=== PATIENT | female | born 1960 | race Caucasian/White ===

== ENCOUNTER → 2018-10-12 | Outpatient (CLI) | payer OTHER ==
--- NOTE | 2018-10-12 16:17 | MR ---
EXAMINATION TYPE: MR lumbar spine wo con DATE OF EXAM: 10/12/2018 COMPARISON: Lumbosacral radiographs dated 01/31/2016 HISTORY: Back pain TECHNIQUE: Multiplanar, multisequence images of the lumbar spine were acquired. FINDINGS: The lumbar spine vertebral body heights and alignment are maintained. Conus medullaris is u nremarkable terminating at T12-L1: Bone marrow signal is within normal limits. There is multilevel di sc desiccation present. L1-L2: There is a small broad-based disc bulge at there is flattening of the usual disc concavity pos teriorly without spinal canal stenosis or neural foraminal narrowing. L2-L3: There is a small broad-based disc bulge at there is flattening of the usual disc concavity pos teriorly without spinal canal stenosis or neural foraminal narrowing. L3-L4: There is a small broad-based disc bulge at there is flattening of the usual disc concavity pos teriorly without spinal canal stenosis or neural foraminal narrowing. Additionally there is mild face t arthropathy. L4-L5: There is a broad-based disc bulge that is right eccentric resulting in moderate right neural f oraminal narrowing and mild left neural foraminal narrowing. No spinal canal stenosis L5-S1: There is a very small central disc herniation superimposed upon a broad-based disc bulge with mild facet arthropathy creating minimal bilateral neural foraminal narrowing. No spinal canal stenosi s. IMPRESSION: 1. Small central disc herniation at L5-S1 examination with degenerative disc disease creating minimal bilateral neural foraminal narrowing. 2. Right eccentric broad-based disc bulge at L4-L5 creating moderate right neural foraminal narrowing and mild left neural foraminal narrowing. 3. Mild degenerative disc disease throughout the lumbar spine.
== END | disposition home or self-care (01) ==
LOC: RADMRIMAIN 13:19
PROVIDERS: ATTEND Family Medicine
DX: M99.73 Connective tissue and disc stenosis of intervertebral foramina of lumbar region (principal); M51.17 Intervertebral disc disorders with radiculopathy, lumbosacral region
CPT/HCPCS: 72148

== ENCOUNTER 2019-04-04 14:14 | Emergency (ER) | payer OTHER ==
[2019-04-04 14:21] VITALS: RESP 18; TEMP 98.6
[2019-04-04 15:00] LABS: Basophils % (A) 0 %; Eosinophils # (A) 0.2 k/uL (0-0.7); Eosinophils % (A) 2 %; HCT 43.8 % (34.0-46.0); HGB 14.3 gm/dL (11.4-16.0); Lymphocytes # (A) 2.8 k/uL (1.0-4.8); Lymphocytes % (A) 28 %; MCH 31.3 pg (25.0-35.0); MCHC 32.7 g/dL (31.0-37.0); MCV 95.7 fL (80.0-100.0); Monocytes # (A) 0.3 k/uL (0-1.0); Monocytes % (A) 3 %; Neutrophils # (A) 6.4 k/uL (1.3-7.7); Neutrophils % (A) 65 %; Platelet Count 320 k/uL (150-450); RBC 4.58 m/uL (3.80-5.40); RDW 13.3 % (11.5-15.5); WBC 9.8 k/uL (3.8-10.6)
[2019-04-04] MEDS ORDERED: ONDANSETRON 4 MG/2 ML VIAL IVP STA (15:03)
[2019-04-04] MEDS ORDERED: MORPHINE SULFATE 4 MG/ML SYRINGE IVP STA (15:04)
[2019-04-04 15:15] LABS: ALT 26 U/L (9-52); AST 21 U/L (14-36); Albumin 4.9 g/dL (3.5-5.0); Alkaline Phosphatase 67 U/L (38-126); Amylase 62 U/L (30-110); Anion Gap 8 mmol/L; Blood Urea Nitrogen 10 mg/dL (7-17); Calcium 9.7 mg/dL (8.4-10.2); Carbon Dioxide 28 mmol/L (22-30); Chloride 104 mmol/L (98-107); Glucose 145 mg/dL (74-99); Lipase 80 U/L (23-300); Potassium 3.3 mmol/L (3.5-5.1); Sodium 140 mmol/L (137-145); Total Bilirubin 0.4 mg/dL (0.2-1.3); Total Protein 7.6 g/dL (6.3-8.2)
[2019-04-04 15:16] LABS: Appearance,Urine Clear (Clear); Bilirubin,Urine Negative (Negative); Blood,Urine Negative (Negative); Color,Urine Yellow; Glucose,Urine (UA) Negative (Negative); Ketones,Urine Negative (Negative); Leukocyte Esterase,Urine Negative (Negative); Nitrite,Urine Negative (Negative); PH, Urine 7.5 (5.0-8.0); Protein,Urine Negative (Negative); Specific Gravity,Urine 1.012 (1.001-1.035); Urobilinogen,Urine <2.0 mg/dL (<2.0)
--- NOTE | 2019-04-04 15:17 | ED ---
Abdominal Pain HPI - General Chief Complaint: Abdominal Pain Stated Complaint: diverticulitis Time Seen by Provider: 04/04/19 14:43 Source: patient Mode of arrival: wheelchair Limitations: no limitations - History of Present Illness Initial Comments: 59-year-old female presenting today for chief complaint of abdominal pain. Patient has history of multiple abdominal surgery including resections, she has history of Crohn's disease she states she has not had a flare in 7 years. Patient states that she has history of diverticulitis. She states that she was prescribed ciprofloxacin and Flagyl yesterday by her primary care provider. With outpatient CT scheduled for today. Patient states she took her initial doses today. She states she is able to keep down the Flagyl however had severe nausea after taking the ciprofloxacin. Patient states her pain increased that was of the lower abdomen bilaterally mostly right-sided however radiating towards the right side of the back. Patient states it is crampy in nature. Patient describes as a moderate to severe pain. Patient denies vomiting she denies diarrhea she states her bowel movement this morning was normal. Patient has fever or chills night sweats chest chest pain shortness of breath or shortness breath on exertion. Remaining review of systems negative upon arrival patient appears uncomfortable but well and nontoxic. - Related Data Home Medications Medication Instructions Recorded Confirmed Ciprofloxacin HCl [Cipro] 500 mg PO DAILY 04/04/19 04/04/19 Tatyana 500 mg PO DAILY 04/04/19 04/04/19 Turmeric Root Extract [Turmeric] 500 mg PO DAILY 04/04/19 04/04/19 metroNIDAZOLE [Flagyl] 500 mg PO TID 04/04/19 04/04/19 Allergies Allergy/AdvReac Type Severity Reaction Status Date / Time Sulfa (Sulfonamide Allergy Rash/Hives Verified 04/04/19 14:44 Antibiotics) sumatriptan [From Imitrex] Allergy Chest Pain Verified 04/04/19 14:44 sumatriptan succinate Allergy Chest Pain Verified 04/04/19 14:44 [From Imitrex] Review of Systems ROS Statement: Those systems with pertinent positive or pertinent negative responses have been documented in the HPI. ROS Other: All systems not noted in ROS Statement are negative. Past Medical History Additional Past Medical History / Comment(s): CROHNS, IBS, BULGING DISCS, rectal prolapse, vaginal prolapse, shingles History of Any Multi-Drug Resistant Organisms: MRSA Date of last positivie culture/infection: 1997 MDRO Source:: Head Past Surgical History: Appendectomy, Bowel Resection, Section, Cholecystectomy, Hysterectomy Past Anesthesia/Blood Transfusion Reactions: No Reported Reaction Past Psychological History: Anxiety, Bipolar, Depression Smoking Status: Former smoker Past Alcohol Use History: None Reported Past Drug Use History: None Reported - Past Family History Mother Family Medical History: Hypertension General Exam - General Exam Comments Initial Comments: General: The patient is awake and alert, in no distress. Eye: +3 mm pupils are equal, round and reactive to light, extra-ocular movements are intact. No nystagmus. There is normal conjunctiva bilaterally. No signs of icterus. Ears, nose, mouth and throat: There are moist mucous membranes and no oral lesions. Neck: The neck is supple, there is no tenderness or JVD. Cardiovascular: There is a regular rate and rhythm. No murmur, rub or gallop is appreciated. Respiratory: Lungs are clear to auscultation, respirations are non-labored, breath sounds are equal. No wheezes, stridor, rales, or rhonchi. Gastrointestinal: Soft, non-distended, lower abdomen mildly tender diffusely R> L, without masses or organomegaly noted. There is no rebound or guarding present. No CVA tenderness. Bowel sounds are unremarkable. Musculoskeletal: Normal ROM, no tenderness. Strength 5/5. Sensation intact. Pulses equal bilaterally 2+. Neurological: A&O x 3. CN II-XII intact, There are no obvious motor or sensory deficits. Coordination appears grossly intact. Speech is normal. Skin: Skin is warm and dry and no rashes or lesions are noted. Psychiatric: Cooperative, appropriate mood & affect, normal judgment. Limitations: no limitations Course Vital Signs 04/04/19 04/04/19 04/04/19 14:15 16:10 17:35 Temperature 98.6 F 98.6 F Pulse Rate 110 H 71 79 Respiratory 18 18 18 Rate Blood Pressure 173/91 162/98 169/100 O2 Sat by Pulse 99 97 98 Oximetry Medical Decision Making - Medical Decision Making 59-year-old female presenting for right lower abdominal pain. Examination does not reveal rigidity guarding or signs of peritoneal irritation. Imaging studies reveal a right-sided colitis there is no complicating processing at this time. Differential diagnosis includes Crohn's flare first infectious etiology. Patient is currently on Cipro and Flagyl. As prescribed by her primary care provider. Patient is afebrileand if can leukocytosis. Patient provided Solu- Medrol IV. Patient states oral prednisone does not work for her flareups. Patient was offered admission for pain control. Patient states she would like to go home. Patient is provided IV analgesics for pain in the emergency de partment. Patient has right home. Patient appears well. At this time I feel patient is stable for discharge with outpatient GI follow-up and primary care follow-up tomorrow as scheduled. Patient is agreeable care plan as well as return parameters which included immediate return for worsening pain. I discussed case with him far Dr. Bustillos who is agreeable plan of care and discharge today. - Lab Data Result diagrams: 04/04/19 14:46 04/04/19 14:46 Lab Results 04/04/19 04/04/19 04/04/19 Range/Units 14:46 14:46 15:00 WBC 9.8 (3.8-10.6) k/uL RBC 4.58 (3.80-5.40) m/uL Hgb 14.3 (11.4-16.0) gm/dL Hct 43.8 (34.0-46.0) % MCV 95.7 (80.0-100.0) fL MCH 31.3 (25.0-35.0) pg MCHC 32.7 (31.0-37.0) g/dL RDW 13.3 (11.5-15.5) % Plt Count 320 (150-450) k/uL Neutrophils % 65 % Lymphocytes % 28 % Monocytes % 3 % Eosinophils % 2 % Basophils % 0 % Neutrophils # 6.4 (1.3-7.7) k/uL Lymphocytes # 2.8 (1.0-4.8) k/uL Monocytes # 0.3 (0-1.0) k/uL Eosinophils # 0.2 (0-0.7) k/uL Basophils # 0.0 (0-0.2) k/uL Sodium 140 (137-145) mmol/L Potassium 3.3 L (3.5-5.1) mmol/L Chloride 104 (98-107) mmol/L Carbon Dioxide 28 (22-30) mmol/L Anion Gap 8 mmol/L BUN 10 (7-17) mg/dL Creatinine 0.59 (0.52-1.04) mg/dL Est GFR (CKD-EPI)AfAm >90 (>60 ml/min/1.73 sqM) Est GFR (CKD-EPI)NonAf >90 (>60 ml/min/1.73 sqM) Glucose 145 H (74-99) mg/dL Calcium 9.7 (8.4-10.2) mg/dL Total Bilirubin 0.4 (0.2-1.3) mg/dL AST 21 (14-36) U/L ALT 26 (9-52) U/L Alkaline Phosphatase 67 (38-126) U/L Total Protein 7.6 (6.3-8.2) g/dL Albumin 4.9 (3.5-5.0) g/dL Amylase 62 (30-110) U/L Lipase 80 (23-300) U/L Urine Color Yellow Urine Appearance Clear (Clear) Urine pH 7.5 (5.0-8.0) Ur Specific [place] 1.012 (1.001-1.035) Urine Protein Negative (Negative) Urine Glucose (UA) Negative (Negative) Urine Ketones Negative (Negative) Urine Blood Negative (Negative) Urine Nitrite Negative (Negative) Urine Bilirubin Negative (Negative) Urine Urobilinogen <2.0 (<2.0) mg/dL Ur Leukocyte Esterase Negative (Negative) Disposition Clinical Impression: Colitis Disposition: HOME SELF-CARE Condition: Good Instructions (If sedation given, give patient instructions): Colitis (ED) Additional Instructions: Please continue outpatient medication as discussed. Please follow-up with family doctor tomorrow as scheduled, please follow-up with GI Dr Finch as discussed. Please return to emergency room if the symptoms increase or worsen or for any other concerns. Is patient prescribed a controlled substance at d/c from ED?: No Referrals: Christina Jones DO [Primary Care Provider] - 1-2 days Arvind Ortiz MD [STAFF PHYSICIAN] - 1-2 days Time of Disposition: 16:23
--- NOTE | 2019-04-04 15:53 | CT ---
EXAMINATION TYPE: CT abdomen pelvis w con DATE OF EXAM: 04/04/2019 HISTORY: Upper Abdominal pain. CT DLP: 550.1mGycm Automated Exposure Control for Dose Reduction was Utilized. CONTRAST: CT scan of the abdomen and pelvis is performed without oral but with IV Contrast, patient injected wi th 100 mL of Isovue 300. COMPARISON: CT abdomen pelvis March 26, 2014 FINDINGS: LUNG BASES: There is new small fat-containing hernia Bochdalek type posterior right lung axial image 21. LIVER/GB: Cholecystectomy clips are redemonstrated. PANCREAS: No significant abnormality is seen. SPLEEN: No significant abnormality is seen. ADRENALS: Slight nodularity left adrenal gland axial image 24 is present. KIDNEYS: No significant abnormality is seen. BOWEL: No surgical sutures sigmoid colon are present axial image 66 and 64. No suspicious small or l arge bowel dilatation. Mild to moderate wall thickening right colon is identified. UTERUS/ADNEXA: Uterus is surgically absent or markedly atrophic. LYMPH NODES: No greater than 1cm abdominal or pelvic lymph nodes are appreciated. OSSEOUS STRUCTURES: Straightening of spine is seen on lateral view. OTHER: Mild to moderate atherosclerotic change of aorta extends into branch vessels. Surgical clips u pper left pelvis axial image 51 are redemonstrated IMPRESSION: Suspect new mild right-sided colitis. Correlate clinically for infectious or inflammatory etiology.
[2019-04-04] MEDS ORDERED: POTASSIUM CHLORIDE ER 20 MEQ TAB.ER PO STA (16:00)
[2019-04-04] MEDS ORDERED: methylPREDNISolone SOD SUCCI 125 MG/2 ML VIAL IV STA (16:20)
[2019-04-04] MEDS ORDERED: MORPHINE SULFATE 2 MG/ML SYRINGE IVP STA (16:21)
[2019-04-04 17:38] VITALS: BP 169/100; PULSE 79
== END 2019-04-04 17:35 | disposition home or self-care (01) ==
LOC: EC 14:14
DX: K52.9 Noninfective gastroenteritis and colitis, unspecified (principal); Z87.19 Personal history of other diseases of the digestive system; Z86.14 Personal history of Methicillin resistant Staphylococcus aureus infection; Z90.49 Acquired absence of other specified parts of digestive tract; Z90.710 Acquired absence of both cervix and uterus; Z98.890 Other specified postprocedural states; Z87.891 Personal history of nicotine dependence; Z79.899 Other long term (current) drug therapy; Z88.2 Allergy status to sulfonamides; Z88.8 Allergy status to other drugs, medicaments and biological substances
CPT/HCPCS: 36415; 80053; 82150; 83690; 85025; 81003; 74177; 99284; 96374; 96375 ×2; 96376; J2270 ×2; J2930; J2405; Q9967

== ENCOUNTER → 2019-06-24 | Outpatient (CLI) | payer OTHER | END | disposition home or self-care (01) | LOC: LABWHC1 15:42 | PROVIDERS: ATTEND Family Medicine | DX: C20 Malignant neoplasm of rectum (principal); R59.0 Localized enlarged lymph nodes | CPT/HCPCS: 36415; 82378; 87040 ==

== ENCOUNTER 2019-06-26 12:42 | Emergency (ER) | payer OTHER ==
[2019-06-26] MEDS ORDERED: SODIUM CHLORIDE 0.9% 1,000 ML IV STA ×2 (12:50→13:05)
[2019-06-26] MEDS ORDERED: HYDROmorphone 0.5 MG/0.5 ML SYRINGE IVP STA (13:05)
--- NOTE | 2019-06-26 13:09 | ED ---
Abdominal Pain HPI - General Chief Complaint: Abdominal Pain Stated Complaint: Abd pain Time Seen by Provider: 06/26/19 12:47 Source: patient, RN notes reviewed Mode of arrival: wheelchair Limitations: no limitations - History of Present Illness Initial Comments: This is a 59-year-old female with a history of rectal prolapse with bowel resection a history of anal cancer history of ulcerative colitis Crohn's disease as well as diverticulosis and diverticulitis who was sent in from her doctor's office today because of persistent abdominal pain especially left lower quadrant this started 4 days ago. Patient was seen in the doctor's office 2 days ago with some outpatient evaluation started but the pain is getting worse and is persistent. She states is 9/10 severity dull unrelenting pain. She's had decreased oral intake secondary to this. Fevers chills nausea vomiting or sweats. Concern for bowel obstruction secondary to a outpatient x-rays. MD Complaint: abdominal pain - Related Data Previous Rx's Medication Instructions Recorded Dicyclomine [Bentyl] 10 mg PO TID #12 capsule 06/26/19 Ketorolac [Toradol] 10 mg PO Q6HR #20 tab 06/26/19 Allergies Allergy/AdvReac Type Severity Reaction Status Date / Time Sulfa (Sulfonamide Allergy Rash/Hives Verified 06/26/19 13:09 Antibiotics) sumatriptan [From Imitrex] Allergy Chest Pain Verified 06/26/19 13:09 sumatriptan succinate Allergy Chest Pain Verified 06/26/19 13:09 [From Imitrex] Review of Systems ROS Statement: Those systems with pertinent positive or pertinent negative responses have been documented in the HPI. ROS Other: All systems not noted in ROS Statement are negative. Past Medical History Past Medical History: Cancer Additional Past Medical History / Comment(s): CROHNS, IBS, BULGING DISCS, rectal prolapse, vaginal prolapse, shingles, diverticulitis, ulcerative colitis History of Any Multi-Drug Resistant Organisms: MRSA Date of last positivie culture/infection: 1997 MDRO Source:: Head Past Surgical History: Appendectomy, Bowel Resection, Section, Cholecystectomy, Hysterectomy Past Anesthesia/Blood Transfusion Reactions: No Reported Reaction Past Psychological History: Anxiety, Bipolar, Depression Smoking Status: Former smoker Past Alcohol Use History: None Reported Past Drug Use History: None Reported - Past Family History Mother Family Medical History: Hypertension General Exam - General Exam Comments Initial Comments: This is a well-developed asthenic appearing female who is awake alert oriented 3 Limitations: no limitations General appearance: alert, anxious, in distress Head exam: Present: atraumatic, normocephalic, normal inspection Eye exam: Present: normal appearance, PERRL, EOMI. Absent: scleral icterus, conjunctival injection, periorbital swelling ENT exam: Present: mucous membranes dry Neck exam: Present: normal inspection. Absent: tenderness, meningismus, lymphadenopathy Respiratory exam: Present: normal lung sounds bilaterally. Absent: respiratory distress, wheezes, rales, rhonchi, stridor Cardiovascular Exam: Present: regular rate, normal rhythm, normal heart sounds. Absent: systolic murmur, diastolic murmur, rubs, gallop, clicks GI/Abdominal exam: Present: soft, tenderness, normal bowel sounds. Absent: distended, guarding, rebound, rigid, bruit, pulsatile mass (Tenderness especial ly left lower quadrant.) Extremities exam: Present: normal inspection, full ROM, normal capillary refill. Absent: tenderness, pedal edema, joint swelling, calf tenderness Back exam: Present: normal inspection Neurological exam: Present: alert, oriented X3, CN II-XII intact Psychiatric exam: Present: normal affect, normal mood Skin exam: Present: warm, dry, intact, normal color. Absent: rash Course Vital Signs 06/26/19 12:46 Temperature 97.9 F Pulse Rate 84 Respiratory 16 Rate Blood Pressure 149/104 O2 Sat by Pulse 98 Oximetry Medical Decision Making - Medical Decision Making Age was feeling much improved but 76% better. Imaging shows no evidence of acute findings as well as lab work was essentially within normal limits. I long discussion with her regarding the findings. The presentation is consistent with bowel spasm and adhesions which are likely postsurgical. He does say she had a history of adhesions many years ago and had surgery for that. I also did discuss the case with Dr. Bernard. Patient will be discharged on appropriate med ication with follow-up - Lab Data Result diagrams: 06/26/19 13:16 06/26/19 13:16 Lab Results 06/26/19 06/26/19 06/26/19 Range/Units 13:16 13:16 13:16 WBC 9.7 (3.8-10.6) k/uL RBC 4.80 (3.80-5.40) m/uL Hgb 14.4 (11.4-16.0) gm/dL Hct 45.2 (34.0-46.0) % MCV 94.2 (80.0-100.0) fL MCH 30.1 (25.0-35.0) pg MCHC 31.9 (31.0-37.0) g/dL RDW 13.5 (11.5-15.5) % Plt Count 301 (150-450) k/uL Neutrophils % 57 % Lymphocytes % 35 % Monocytes % 3 % Eosinophils % 2 % Basophils % 1 % Neutrophils # 5.6 (1.3-7.7) k/uL Lymphocytes # 3.4 (1.0-4.8) k/uL Monocytes # 0.3 (0-1.0) k/uL Eosinophils # 0.2 (0-0.7) k/uL Basophils # 0.1 (0-0.2) k/uL PT 9.6 (9.0-12.0) sec INR 0.9 (<1.2) APTT 21.2 L (22.0-30.0) sec Sodium 143 (137-145) mmol/L Potassium 3.9 (3.5-5.1) mmol/L Chloride 107 (98-107) mmol/L Carbon Dioxide 24 (22-30) mmol/L Anion Gap 12 mmol/L BUN 11 (7-17) mg/dL Creatinine 0.58 (0.52-1.04) mg/dL Est GFR (CKD-EPI)AfAm >90 (>60 ml/min/1.73 sqM) Est GFR (CKD-EPI)NonAf >90 (>60 ml/min/1.73 sqM) Glucose 104 H (74-99) mg/dL Plasma Lactic Acid Alex (0.7-2.0) mmol/L Calcium 9.9 (8.4-10.2) mg/dL Magnesium 1.8 (1.6-2.3) mg/dL Total Bilirubin 0.3 (0.2-1.3) mg/dL AST 21 (14-36) U/L ALT 14 (9-52) U/L Alkaline Phosphatase 76 (38-126) U/L Creatine Kinase 55 (30-135) U/L Total Protein 7.9 (6.3-8.2) g/dL Albumin 4.9 (3.5-5.0) g/dL Lipase 261 (23-300) U/L Urine Color Urine Appearance (Clear) Urine pH (5.0-8.0) Ur Specific [place] (1.001-1.035) Urine Protein (Negative) Urine Glucose (UA) (Negative) Urine Ketones (Negative) Urine Blood (Negative) Urine Nitrite (Negative) Urine Bilirubin (Negative) Urine Urobilinogen (<2.0) mg/dL Ur Leukocyte Esterase (Negative) 06/26/19 06/26/19 Range/Units 13:16 13:25 WBC (3.8-10.6) k/uL RBC (3.80-5.40) m/uL Hgb (11.4-16.0) gm/dL Hct (34.0-46.0) % MCV (80.0-100.0) fL MCH (25.0-35.0) pg MCHC (31.0-37.0) g/dL RDW (11.5-15.5) % Plt Count (150-450) k/uL Neutrophils % % Lymphocytes % % Monocytes % % Eosinophils % % Basophils % % Neutrophils # (1.3-7.7) k/uL Lymphocytes # (1.0-4.8) k/uL Monocytes # (0-1.0) k/uL Eosinophils # (0-0.7) k/uL Basophils # (0-0.2) k/uL PT (9.0-12.0) sec INR (<1.2) APTT (22.0-30.0) sec Sodium (137-145) mmol/L Potassium (3.5-5.1) mmol/L Chloride (98-107) mmol/L Carbon Dioxide (22-30) mmol/L Anion Gap mmol/L BUN (7-17) mg/dL Creatinine (0.52-1.04) mg/dL Est GFR (CKD-EPI)AfAm (>60 ml/min/1.73 sqM) Est GFR (CKD-EPI)NonAf (>60 ml/min/1.73 sqM) Glucose (74-99) mg/dL Plasma Lactic Acid Alex 0.9 (0.7-2.0) mmol/L Calcium (8.4-10.2) mg/dL Magnesium (1.6-2.3) mg/dL Total Bilirubin (0.2-1.3) mg/dL AST (14-36) U/L ALT (9-52) U/L Alkaline Phosphatase (38-126) U/L Creatine Kinase (30-135) U/L Total Protein (6.3-8.2) g/dL Albumin (3.5-5.0) g/dL Lipase (23-300) U/L Urine Color Light Yellow Urine Appearance Clear (Clear) Urine pH 6.0 (5.0-8.0) Ur Specific [place] 1.005 (1.001-1.035) Urine Protein Negative (Negative) Urine Glucose (UA) Negative (Negative) Urine Ketones Negative (Negative) Urine Blood Negative (Negative) Urine Nitrite Negative (Negative) Urine Bilirubin Negative (Negative) Urine Urobilinogen <2.0 (<2.0) mg/dL Ur Leukocyte Esterase Negative (Negative) - Radiology Data Radiology results: report reviewed (I did review the imaging and report no acute findings.), image reviewed Disposition Clinical Impression: Abdominal pain, Spastic colon Disposition: HOME SELF-CARE Condition: Good Instructions (If sedation given, give patient instructions): Abdominal Pain (ED), Irritable Bowel Syndrome (ED) Prescriptions: Dicyclomine [Bentyl] 10 mg PO TID #12 capsule Ketorolac [Toradol] 10 mg PO Q6HR #20 tab Is patient prescribed a controlled substance at d/c from ED?: No Referrals: Cynthia Bernard MD [Primary Care Provider] - 1-2 days
[2019-06-26 13:32] LABS: Basophils # (A) 0.1 k/uL (0-0.2); Basophils % (A) 1 %; Eosinophils # (A) 0.2 k/uL (0-0.7); Eosinophils % (A) 2 %; HCT 45.2 % (34.0-46.0); HGB 14.4 gm/dL (11.4-16.0); Lymphocytes # (A) 3.4 k/uL (1.0-4.8); Lymphocytes % (A) 35 %; MCH 30.1 pg (25.0-35.0); MCHC 31.9 g/dL (31.0-37.0); MCV 94.2 fL (80.0-100.0); Monocytes # (A) 0.3 k/uL (0-1.0); Monocytes % (A) 3 %; Neutrophils # (A) 5.6 k/uL (1.3-7.7); Neutrophils % (A) 57 %; Platelet Count 301 k/uL (150-450); RDW 13.5 % (11.5-15.5); WBC 9.7 k/uL (3.8-10.6)
[2019-06-26 13:36] LABS: Appearance,Urine Clear (Clear); Bilirubin,Urine Negative (Negative); Blood,Urine Negative (Negative); Color,Urine Light Yellow; Glucose,Urine (UA) Negative (Negative); Ketones,Urine Negative (Negative); Leukocyte Esterase,Urine Negative (Negative); Nitrite,Urine Negative (Negative); Protein,Urine Negative (Negative); Urobilinogen,Urine <2.0 mg/dL (<2.0)
[2019-06-26 13:43] LABS: ALT 14 U/L (9-52); AST 21 U/L (14-36); African American GFR (CKD) >90 (>60 ml/min/1.73 sqM); Albumin 4.9 g/dL (3.5-5.0); Alkaline Phosphatase 76 U/L (38-126); Anion Gap 12 mmol/L; Blood Urea Nitrogen 11 mg/dL (7-17); Calcium 9.9 mg/dL (8.4-10.2); Carbon Dioxide 24 mmol/L (22-30); Chloride 107 mmol/L (98-107); Creatine Kinase 55 U/L (30-135); Glucose 104 mg/dL (74-99); Magnesium 1.8 mg/dL (1.6-2.3); Non-African American GFR(CKD) >90 (>60 ml/min/1.73 sqM); Potassium 3.9 mmol/L (3.5-5.1); Sodium 143 mmol/L (137-145); Total Bilirubin 0.3 mg/dL (0.2-1.3); Total Protein 7.9 g/dL (6.3-8.2)
[2019-06-26 14:04] LABS: INR 0.9 (<1.2); Prothrombin Time 9.6 sec (9.0-12.0)
[2019-06-26 14:20] LABS: Specific Gravity,Urine 1.005 (1.001-1.035)
[2019-06-26 14:21] LABS: Partial Thromboplastin Time 21.2 sec (22.0-30.0)
--- NOTE | 2019-06-26 14:39 | CT ---
EXAMINATION TYPE: CT abdomen pelvis w con DATE OF EXAM: 06/26/2019 COMPARISON: 04/04/2019 HISTORY: Abdominal pain CT DLP: 528.6 mGycm Automated exposure control for dose reduction was used. CONTRAST: CT scan of the abdomen pelvis is performed with IV Contrast, patient injected with 100 ml mL of Isovu e 300. FINDINGS- LUNG BASES-stable fat-containing Bochdalek hernia posterior right lung. LIVER/GB-postcholecystectomy changes noted. There is increased enhancement near the dome of the liver which may be artifactual. Calcified nodule adjacent to the posterior margin of the liver stable of d oubtful significance.. PANCREAS- No gross abnormality is seen. SPLEEN- No gross abnormality is seen. ADRENALS-stable 1 cm nonspecific nodularity left adrenal gland. KIDNEYS/BLADDER- no hydronephrosis nephrolithiasis or renal mass. BOWEL-bowel gas pattern is nonspecific. Appendix not visualized. No inflammatory changes in the right lower quadrant. Previous surgery near the rectosigmoid junction is suggested. No inflammatory change s surrounding the bowel. LYMPH NODES- No greater than 1cm abdominal or pelvic lymph nodes areappreciated. OSSEOUS STRUCTURES- No significant abnormality is seen. OTHER- no free fluid. IMPRESSION- 1. Nonspecific gas pattern with no evidence of obstruction. There are few fluid-filled bowel loops wh ich could be related to an ileus or enteritis. No inflammatory changes 2. Postcholecystectomy changes with mild intrahepatic biliary dilation likely postsurgical. 3. There is increased enhancement along the dome of the liver posterior laterally which is nonspecifi c. This was not seen with certainty on the prior exam and follow-up MRI recommended for further eval uation
[2019-06-26] MEDS ORDERED: DICYCLOMINE 10 MG CAP PO STA (15:32)
[2019-06-26] MEDS ORDERED: KETOROLAC 30 MG/ML 1 ML VIAL IVP STA (15:32)
[2019-06-26 16:22] VITALS: BP 148/93; PULSE 78; RESP 18; TEMP 98.3
== END 2019-06-26 16:21 | disposition home or self-care (01) ==
LOC: EC 12:42
DX: K58.9 Irritable bowel syndrome, unspecified (principal); R10.32 Left lower quadrant pain; R50.9 Fever, unspecified; Z88.2 Allergy status to sulfonamides; Z88.8 Allergy status to other drugs, medicaments and biological substances; Z87.891 Personal history of nicotine dependence; Z87.19 Personal history of other diseases of the digestive system; Z85.048 Personal history of other malignant neoplasm of rectum, rectosigmoid junction, and anus; Z90.49 Acquired absence of other specified parts of digestive tract; Z98.890 Other specified postprocedural states
CPT/HCPCS: 36415; 80053; 82550; 83605; 83690; 83735; 85025; 85610; 85730; 81003; 87040; 74177; 99284; 96374; 96375; 96361; J1885; J1170; Q9967

== ENCOUNTER 2020-06-17 18:26 | Emergency (ER) | payer OTHER ==
[2020-06-17 18:37] VITALS: TEMP 98.6
[2020-06-17] MEDS ORDERED: ONDANSETRON 4 MG/2 ML VIAL IVP STA (19:31)
[2020-06-17] MEDS ORDERED: HYDROmorphone 0.5 MG/0.5 ML SYRINGE IVP STA ×2 (19:31→22:52)
[2020-06-17] MEDS ORDERED: SODIUM CHLORIDE 0.9% 1,000 ML IV STA (19:31)
--- NOTE | 2020-06-17 20:33 | ED ---
General Adult HPI - General Chief complaint: Abdominal Pain Stated complaint: abd pain Time Seen by Provider: 06/17/20 19:13 Source: patient, RN notes reviewed Mode of arrival: ambulatory Limitations: no limitations - History of Present Illness Initial comments: 60-year-old female with a past medical history of Crohn's, multiple bowel resections, ulcerative colitis, diverticulitis, anal cancer presents to the emergency room for abdominal pain. Patient states this started last night. States it is generalized in her abdomen. States she has nausea vomiting associated with this pain as well. Patient states that she has many abdominal problems and this feels similar to previous problems. Patient states she can no longer stand the pain.Patient has no other complaints at this time including shortness of breath, chest pain, abdominal pain, nausea or vomiting, headache, or visual changes. - Related Data Home Medications Medication Instructions Recorded Confirmed Atorvastatin [Lipitor] 40 mg PO DAILY 06/17/20 06/17/20 Clopidogrel Bisulfate [Plavix] 75 mg PO DAILY 06/17/20 06/17/20 Losartan Potassium 50 mg PO DAILY 06/17/20 06/17/20 OXcarbazepine [Trileptal] 150 mg PO HS 06/17/20 06/17/20 Ondansetron Odt [Zofran Odt] 4 mg PO Q4H PRN 06/17/20 06/17/20 Previous Rx's Medication Instructions Recorded predniSONE 50 mg PO DAILY #5 tablet 06/17/20 Allergies Allergy/AdvReac Type Severity Reaction Status Date / Time Sulfa (Sulfonamide Allergy Rash/Hives Verified 06/17/20 20:45 Antibiotics) sumatriptan [From Imitrex] Allergy Chest Pain Verified 06/17/20 20:45 sumatriptan succinate Allergy Chest Pain Verified 06/17/20 20:45 [From Imitrex] Review of Systems ROS Statement: Those systems with pertinent positive or pertinent negative responses have been documented in the HPI. ROS Other: All systems not noted in ROS Statement are negative. Past Medical History Past Medical History: Cancer, CVA/TIA, Hyperlipidemia, Hypertension Additional Past Medical History / Comment(s): CROHNS, IBS, BULGING DISCS, rectal prolapse, vaginal prolapse, shingles, diverticulitis, ulcerative colitis, anal cancer History of Any Multi-Drug Resistant Organisms: MRSA Date of last positivie culture/infection: 1997 MDRO Source:: Head Past Surgical History: Appendectomy, Bowel Resection, Section, Cholecystectomy, Hysterectomy Past Anesthesia/Blood Transfusion Reactions: No Reported Reaction Past Psychological History: Anxiety, Bipolar, Depression Smoking Status: Current every day smoker Past Alcohol Use History: None Reported Past Drug Use History: None Reported - Past Family History Mother Family Medical History: Hypertension General Exam Limitations: no limitations General appearance: alert, in no apparent distress Head exam: Present: atraumatic, normocephalic, normal inspection Eye exam: Present: normal appearance, PERRL, EOMI. Absent: scleral icterus, conjunctival injection, periorbital swelling ENT exam: Present: normal exam, mucous membranes moist Neck exam: Present: normal inspection. Absent: tenderness, meningismus, l ymphadenopathy Respiratory exam: Present: normal lung sounds bilaterally. Absent: respiratory distress, wheezes, rales, rhonchi, stridor Cardiovascular Exam: Present: regular rate, normal rhythm, normal heart sounds. Absent: systolic murmur, diastolic murmur, rubs, gallop, clicks GI/Abdominal exam: Present: soft, tenderness (Generalized abdominal tenderness without guarding or rebound.), normal bowel sounds. Absent: distended, guarding, rebound, rigid Neurological exam: Present: alert Course Vital Signs 06/17/20 06/17/20 18:33 22:14 Temperature 98.6 F Pulse Rate 110 H 65 Respiratory 22 16 Rate Blood Pressure 152/91 135/69 O2 Sat by Pulse 97 99 Oximetry Medical Decision Making - Medical Decision Making Vitals are stable. CBC and CMP are unremarkable. Lactic acid is not elevated. Urinalysis negative. CT abdomen and pelvis shows no acute process. Patient reevaluated and did have improvement pain. She did request a dose of pain medication to go home with as well which will be given. Patient will be started on a steroid given her history of Crohn's and colitis. She will follow-up with her primary care provider at her appointment on Sunday. She will also follow up with GI. Patient will return here for any worsening symptoms. - Lab Data Result diagrams: 06/17/20 20:25 06/17/20 20:25 Lab Results 06/17/20 06/17/20 06/17/20 Range/Units 20:25 20:25 20:25 WBC 10.3 (3.8-10.6) k/uL RBC 4.57 (3.80-5.40) m/uL Hgb 14.1 (11.4-16.0) gm/dL Hct 43.8 (34.0-46.0) % MCV 95.7 (80.0-100.0) fL MCH 30.7 (25.0-35.0) pg MCHC 32.1 (31.0-37.0) g/dL RDW 13.2 (11.5-15.5) % Plt Count 297 (150-450) k/uL Neutrophils % 60 % Lymphocytes % 30 % Monocytes % 5 % Eosinophils % 2 % Basophils % 1 % Neutrophils # 6.2 (1.3-7.7) k/uL Lymphocytes # 3.1 (1.0-4.8) k/uL Monocytes # 0.6 (0-1.0) k/uL Eosinophils # 0.2 (0-0.7) k/uL Basophils # 0.1 (0-0.2) k/uL Sodium 137 (137-145) mmol/L Potassium 4.1 (3.5-5.1) mmol/L Chloride 103 (98-107) mmol/L Carbon Dioxide 25 (22-30) mmol/L Anion Gap 9 mmol/L BUN 14 (7-17) mg/dL Creatinine 0.72 (0.52-1.04) mg/dL Est GFR (CKD-EPI)AfAm >90 (>60 ml/min/1.73 sqM) Est GFR (CKD-EPI)NonAf >90 (>60 ml/min/1.73 sqM) Glucose 97 (74-99) mg/dL Plasma Lactic Acid Alex 0.6 L (0.7-2.0) mmol/L Calcium 9.8 (8.4-10.2) mg/dL Total Bilirubin 0.6 (0.2-1.3) mg/dL AST 27 (14-36) U/L ALT 21 (4-34) U/L Alkaline Phosphatase 64 (38-126) U/L Total Protein 7.4 (6.3-8.2) g/dL Albumin 4.7 (3.5-5.0) g/dL Amylase 85 (30-110) U/L Lipase 175 (23-300) U/L Urine Color Urine Appearance (Clear) Urine pH (5.0-8.0) Ur Specific [place] (1.001-1.035) Urine Protein (Negative) Urine Glucose (UA) (Negative) Urine Ketones (Negative) Urine Blood (Negative) Urine Nitrite (Negative) Urine Bilirubin (Negative) Urine Urobilinogen (<2.0) mg/dL Ur Leukocyte Esterase (Negative) 06/17/20 Range/Units 20:31 WBC (3.8-10.6) k/uL RBC (3.80-5.40) m/uL Hgb (11.4-16.0) gm/dL Hct (34.0-46.0) % MCV (80.0-100.0) fL MCH (25.0-35.0) pg MCHC (31.0-37.0) g/dL RDW (11.5-15.5) % Plt Count (150-450) k/uL Neutrophils % % Lymphocytes % % Monocytes % % Eosinophils % % Basophils % % Neutrophils # (1.3-7.7) k/uL Lymphocytes # (1.0-4.8) k/uL Monocytes # (0-1.0) k/uL Eosinophils # (0-0.7) k/uL Basophils # (0-0.2) k/uL Sodium (137-145) mmol/L Potassium (3.5-5.1) mmol/L Chloride (98-107) mmol/L Carbon Dioxide (22-30) mmol/L Anion Gap mmol/L BUN (7-17) mg/dL Creatinine (0.52-1.04) mg/dL Est GFR (CKD-EPI)AfAm (>60 ml/min/1.73 sqM) Est GFR (CKD-EPI)NonAf (>60 ml/min/1.73 sqM) Glucose (74-99) mg/dL Plasma Lactic Acid Alex (0.7-2.0) mmol/L Calcium (8.4-10.2) mg/dL Total Bilirubin (0.2-1.3) mg/dL AST (14-36) U/L ALT (4-34) U/L Alkaline Phosphatase (38-126) U/L Total Protein (6.3-8.2) g/dL Albumin (3.5-5.0) g/dL Amylase (30-110) U/L Lipase (23-300) U/L Urine Color Yellow Urine Appearance Clear (Clear) Urine pH 6.0 (5.0-8.0) Ur Specific [place] 1.023 (1.001-1.035) Urine Protein Trace H (Negative) Urine Glucose (UA) Negative (Negative) Urine Ketones Negative (Negative) Urine Blood Negative (Negative) Urine Nitrite Negative (Negative) Urine Bilirubin Negative (Negative) Urine Urobilinogen 2.0 (<2.0) mg/dL Ur Leukocyte Esterase Negative (Negative) Disposition Clinical Impression: Abdominal pain Disposition: HOME SELF-CARE Condition: Good Instructions (If sedation given, give patient instructions): Abdominal Pain (ED) Additional Instructions: Please take steroid as directed. Follow-up with GI by calling for an appointment tomorrow. Follow-up with primary care at your appointment on Sunday. If you have any worsening symptoms return to the emergency room. Prescriptions: predniSONE 50 mg PO DAILY #5 tablet Is patient prescribed a controlled substance at d/c from ED?: No Referrals: Christina Jones DO [Primary Care Provider] - 1-2 days Time of Disposition: 22:51
[2020-06-17 20:38] LABS: Basophils # (A) 0.1 k/uL (0-0.2); Basophils % (A) 1 %; Eosinophils # (A) 0.2 k/uL (0-0.7); Eosinophils % (A) 2 %; HCT 43.8 % (34.0-46.0); HGB 14.1 gm/dL (11.4-16.0); Lymphocytes # (A) 3.1 k/uL (1.0-4.8); Lymphocytes % (A) 30 %; MCH 30.7 pg (25.0-35.0); MCHC 32.1 g/dL (31.0-37.0); MCV 95.7 fL (80.0-100.0); Mean Platelet Volume 7.3; Monocytes # (A) 0.6 k/uL (0-1.0); Monocytes % (A) 5 %; Neutrophils # (A) 6.2 k/uL (1.3-7.7); Neutrophils % (A) 60 %; Platelet Count 297 k/uL (150-450); RBC 4.57 m/uL (3.80-5.40); RDW 13.2 % (11.5-15.5); WBC 10.3 k/uL (3.8-10.6)
[2020-06-17 20:51] LABS: ALT 21 U/L (4-34); AST 27 U/L (14-36); African American GFR (CKD) >90 (>60 ml/min/1.73 sqM); Albumin 4.7 g/dL (3.5-5.0); Alkaline Phosphatase 64 U/L (38-126); Amylase 85 U/L (30-110); Anion Gap 9 mmol/L; Blood Urea Nitrogen 14 mg/dL (7-17); Calcium 9.8 mg/dL (8.4-10.2); Carbon Dioxide 25 mmol/L (22-30); Chloride 103 mmol/L (98-107); Glucose 97 mg/dL (74-99); Non-African American GFR(CKD) >90 (>60 ml/min/1.73 sqM); Potassium 4.1 mmol/L (3.5-5.1); Sodium 137 mmol/L (137-145); Total Bilirubin 0.6 mg/dL (0.2-1.3); Total Protein 7.4 g/dL (6.3-8.2)
[2020-06-17 20:57] LABS: Appearance,Urine Clear (Clear); Bilirubin,Urine Negative (Negative); Blood,Urine Negative (Negative); Color,Urine Yellow; Glucose,Urine (UA) Negative (Negative); Ketones,Urine Negative (Negative); Leukocyte Esterase,Urine Negative (Negative); Nitrite,Urine Negative (Negative); Protein,Urine Trace (Negative); Specific Gravity,Urine 1.023 (1.001-1.035)
--- NOTE | 2020-06-17 22:05 | CT ---
EXAMINATION TYPE: CT abdomen pelvis w con DATE OF EXAM: 06/17/2020 COMPARISON: 06/26/2019 HISTORY: umbilical pain and bloating CT DLP: 625.4 mGycm Automated exposure control for dose reduction was used. TECHNIQUE: Helical acquisition of images was performed from the lung bases through the pelvis. CONTRAST: Performed without Oral Contrast and with IV Contrast, patient injected with 100 mL of Isovu e 300. FINDINGS: LUNG BASES: No significant abnormality is appreciated. LIVER/GB: No significant abnormality is appreciated. PANCREAS: No significant abnormality is seen. SPLEEN: No significant abnormality is seen. ADRENALS: No significant abnormality is seen. KIDNEYS: No significant abnormality is seen. FREE AIR: No free air is visualized. RETROPERITONEAL ADENOPATHY: None visualized REPRODUCTIVE ORGANS: No significant abnormality is seen URINARY BLADDER: No significant abnormality is seen. PELVIC ADENOPATHY: None visualized. OSSEOUS STRUCTURES: No significant abnormality is seen. BOWEL: No significant abnormality is seen. OTHER: No acute vascular finding. The upper and lower anterior abdominal wall musculature is intact. IMPRESSION: NO ACUTE PROCESS.
[2020-06-17 22:14] VITALS: BP 135/69; PULSE 65; RESP 16
[2020-06-17] MEDS ORDERED: methylPREDNISolone SOD SUCCI 125 MG/2 ML VIAL IV STA (22:52)
== END 2020-06-17 23:18 | disposition home or self-care (01) ==
LOC: EC 18:26
DX: R10.84 Generalized abdominal pain (principal); R11.2 Nausea with vomiting, unspecified; K50.90 Crohn's disease, unspecified, without complications; I10 Essential (primary) hypertension; E78.5 Hyperlipidemia, unspecified; F17.200 Nicotine dependence, unspecified, uncomplicated; Z79.02 Long term (current) use of antithrombotics/antiplatelets; Z79.899 Other long term (current) drug therapy; Z88.2 Allergy status to sulfonamides; Z88.8 Allergy status to other drugs, medicaments and biological substances; Z86.73 Personal history of transient ischemic attack (TIA), and cerebral infarction without residual deficits; Z85.048 Personal history of other malignant neoplasm of rectum, rectosigmoid junction, and anus
CPT/HCPCS: 36415; 80053; 82150; 83605; 83690; 85025; 81003; 74177; 99284; 96374; 96375 ×2; 96376; 96361 ×2; J2930; J2405; J1170; Q9967

== ENCOUNTER → 2020-11-24 | Outpatient (CLI) | payer OTHER ==
--- NOTE | 2020-11-24 16:24 | CT ---
EXAMINATION TYPE: CT sinus wo con DATE OF EXAM: 11/24/2020 COMPARISON: None HISTORY: Chronic sinusitis CT DLP: 628 mGycm CONTRAST: None The paranasal sinuses are examined in the axial plane at 2 mm thick sections. Reconstructed images i n the coronal plane were obtained. There is a left rosa elena bullosa. Small right rosa elena bullosa may be present. The maxillary sinuses are clear. The ethmoid air cells are clear. The sphenoid sinuses are clear. The frontal sinuses are clear. The septum is evaluated. There is septal deviation to the right. The ostiomeatal units are patent. IMPRESSIONS: 1. No acute or chronic sinusitis changes. 2. Right septal deviation
== END | disposition home or self-care (01) ==
LOC: RADCTMAIN 13:19
PROVIDERS: ATTEND Otolaryngology
DX: J34.2 Deviated nasal septum (principal); J32.9 Chronic sinusitis, unspecified
CPT/HCPCS: 70486

== ENCOUNTER → 2020-12-14 | Outpatient (CLI) | payer OTHER ==
[~2020-12-14] MED LIST: REGADENOSON 0.4 MG/5 ML SYRINGE IV ONE
--- NOTE | 2020-12-14 13:02 | NM ---
EXAMINATION TYPE: NM stress lexiscan cardiolite DATE OF EXAM: 12/14/2020 COMPARISON: NONE HISTORY: Chest pain TECHNIQUE: After the intravenous administration of 9.67 mCi Tc 99m Sestamibi - Cardiolite resting SP ECT images acquired 45 minutes post injection. The patient received 0.4mg Lexiscan, 25.7 mCi Tc 99m Sestamibi - Stress images obtained 120 minutes p ost injection FINDINGS: Review of stress and rest SPECT images demonstrates no distinct perfusion abnormality. Gated analysi s shows normal wall motion with an estimated left ventricular ejection fraction of 59 %. IMPRESSION: No scintigraphic evidence for reversible ischemia.
--- NOTE | 2020-12-14 16:32 | EST ---
EXERCISE STRESS AGE: 60 SEX: Female HT: 61" WT: 132 pounds PROTOCOL: Lexiscan Cardiolite STAGE: DURATION OF EXERCISE: HEART RATE REST: 79 BLOOD PRESSURE REST: 132/76 MAXIMUM HEART RATE ACHIEVED: 104 MAXIMUM BLOOD PRESSURE: 132/77 85% MPHR: 137 100% MPHR: 161 METS: INDICATIONS: Chest pain. CLINICAL INFORMATION: Baseline rhythm is sinus mechanism, rate of 79, normal axis and intervals, normal electrocardiogram. Baseline blood pressure 132/76 mmHg. Patient received an injection of Lexiscan. Electrocardiograph monitoring revealed rare PVCs. There was no evidence of diagnostic ischemic ST deviation. Cardiolite was injected per protocol. CONCLUSION: 1. Nondiagnostic electrocardiograph stress testing. 2. Nuclear images will be reported separately. MMODL / IJN: [id number] /
== END | disposition home or self-care (01) ==
LOC: RADNMMAIN 08:52
PROVIDERS: ATTEND Family Medicine
DX: R07.9 Chest pain, unspecified (principal); Z86.73 Personal history of transient ischemic attack (TIA), and cerebral infarction without residual deficits
CPT/HCPCS: 93017; 78452; A9500

== ENCOUNTER 2021-02-03 11:32 | Emergency (ER) | payer OTHER ==
[2021-02-03 11:45] VITALS: TEMP 98.4
[2021-02-03] MEDS ORDERED: MORPHINE SULFATE 4 MG/ML SYRINGE IM STA (11:57)
--- NOTE | 2021-02-03 12:39 | CT ---
EXAMINATION TYPE: CT brain corinneine wo con DATE OF EXAM: 02/03/2021 COMPARISON: None HISTORY: Left sided injury. Trauma and pain CT DLP: 1287 mGycm Automated exposure control for dose reduction was used. TECHNIQUE: CT scan of the head and cervical spine are performed without contrast. FINDINGS: There is no acute intracranial hemorrhage, mass effect, or midline shift identified. The ventricles and sulci are within normal limits in size. The globes are intact and the visualized sin uses are clear. Cervical spine is visualized in its entirety from C1 through upper thoracic levels and demonstrates s atisfactory alignment without evidence of acute fracture or dislocation. Prevertebral soft tissue ap pears within normal limits. There is spondylosis present at C5-6, C6-7 with associated disc height lo ss, foraminal encroachment consistent with degenerative disc disease. The C1-C2 articulation is unre markable. IMPRESSION: 1. There is no acute fracture or dislocation evident in the cervical spine. 2. No acute intracranial hemorrhage, mass effect, or midline shift is seen.
[2021-02-03] MEDS ORDERED: ACETAMINOPHEN TAB 325 MG TAB PO STA (12:45)
[2021-02-03] MEDS ORDERED: HYDROmorphone 0.5 MG/0.5 ML SYRINGE IM STA (12:55)
[2021-02-03 13:08] VITALS: BP 161/103; PULSE 87; RESP 16
--- NOTE | 2021-02-03 13:40 | ED ---
General Adult HPI - General Chief complaint: Headache Stated complaint: Fall, headache Source: patient Mode of arrival: ambulatory Limitations: no limitations - History of Present Illness Initial comments: 60-year-old female with a past medical history of TIA on Plavix, hyperlipidemia, hypertension, ulcerative colitis, anal cancer presents to the emergency room for a chief complaint of head injury. Patient reports that she slipped in the bathroom a few days ago and hit the left side of her head on the ground. Patient states that she also fell on her left arm and she has a bruise however no pain in the left arm. Patient did not have a loss of consciousness. Patient states since that time she has had headaches. She called her doctor who recommended they come to the emergency room for a CAT scan.Patient has no other complaints at this time including shortness of breath, chest pain, abdominal pain, nausea or vomiting, or visual changes. - Related Data Home Medications Medication Instructions Recorded Confirmed Atorvastatin [Lipitor] 40 mg PO DAILY 06/17/20 06/17/20 Clopidogrel Bisulfate [Plavix] 75 mg PO DAILY 06/17/20 06/17/20 Losartan Potassium 50 mg PO DAILY 06/17/20 06/17/20 OXcarbazepine [Trileptal] 150 mg PO HS 06/17/20 06/17/20 Ondansetron Odt [Zofran Odt] 4 mg PO Q4H PRN 06/17/20 06/17/20 Previous Rx's Medication Instructions Recorded predniSONE 50 mg PO DAILY #5 tablet 06/17/20 Allergies Allergy/AdvReac Type Severity Reaction Status Date / Time Sulfa (Sulfonamide Allergy Rash/Hives Verified 02/03/21 11:45 Antibiotics) sumatriptan [From Imitrex] Allergy Chest Pain Verified 02/03/21 11:45 sumatriptan succinate Allergy Chest Pain Verified 02/03/21 11:45 [From Imitrex] Review of Systems ROS Statement: Those systems with pertinent positive or pertinent negative responses have been documented in the HPI. ROS Other: All systems not noted in ROS Statement are negative. Past Medical History Past Medical History: Cancer, CVA/TIA, Hyperlipidemia, Hypertension Additional Past Medical History / Comment(s): CROHNS, IBS, BULGING DISCS, rectal prolapse, vaginal prolapse, shingles, diverticulitis, ulcerative colitis, anal cancer History of Any Multi-Drug Resistant Organisms: MRSA Date of last positivie culture/infection: 1997 MDRO Source:: Head Past Surgical History: Appendectomy, Bowel Resection, Section, Cholecystectomy, Hysterectomy Past Anesthesia/Blood Transfusion Reactions: No Reported Reaction Past Psychological History: Anxiety, Bipolar, Depression Smoking Status: Current every day smoker Past Alcohol Use History: Rare Past Drug Use History: Marijuana - Past Family History Mother Family Medical History: Hypertension General Exam Limitations: no limitations General appearance: alert, in no apparent distress Head exam: Present: atraumatic, normocephalic, normal inspection Eye exam: Present: normal appearance, PERRL, EOMI. Absent: scleral icterus, conjunctival injection, periorbital swelling, other (Negative raccoon sign) ENT exam: Present: normal exam, normal oropharynx, mucous membranes moist, TM's normal bilaterally (Negative hemotympanum), normal external ear exam. Absent: other (Negative Romano sign) Neck exam: Present: normal inspection, full ROM. Absent: tenderness, meningismus, lymphadenopathy Respiratory exam: Present: normal lung sounds bilaterally. Absent: respiratory distress, wheezes, rales, rhonchi, stridor Cardiovascular Exam: Present: regular rate, normal rhythm, normal heart sounds. Absent: systolic murmur, diastolic murmur, rubs, gallop, clicks GI/Abdominal exam: Present: soft, normal bowel sounds. Absent: distended, tenderness, guarding, rebound, rigid Neurological exam: Present: alert, oriented X3, normal gait, other (GCS 15) Expanded Patient oriented to: Present: person, place, time Speech: Present: fluid speech Cranial nerves: EOM's Intact: Normal, Nystagmus: Normal, Facial Sensation: Normal Cerebellar function: Finger to Nose: Normal Upper motor neuron: Pronator Drift: Normal Sensory exam: Upper Extremity Light Touch: Normal, Upper Extremity Pin Prick: Normal, Lower Extremity Light Touch: Normal, Lower Extremity Pin Prick: Normal Motor strength exam: RUE: 5, LUE: 5, RLE: 5, LLE: 5 Psychiatric exam: Present: normal affect, normal mood Course Vital Signs 02/03/21 02/03/21 11:41 13:07 Temperature 98.4 F Pulse Rate 100 87 Respiratory 18 16 Rate Blood Pressure 176/106 161/103 O2 Sat by Pulse 97 99 Oximetry Medical Decision Making - Medical Decision Making Patient presents for headache after head injury several days ago. Was noted to be hypertensive likely secondary to pain. This did improve with pain in his urine. A CT showed no acute fracture or dislocation of the cervical spine. No acute intracranial hemorrhage, mass effect, or midline shift. At this time I discussed concussion precautions. Discussed follow-up with primary care on Sunday. She will return for any worsening symptoms. Disposition Clinical Impression: Head injury Disposition: HOME SELF-CARE Condition: Good Instructions (If sedation given, give patient instructions): Acute Headache (ED), Concussion (ED) Additional Instructions: Please take Tylenol 3 as needed for pain. Do not drive or operate machinery while taking this. Follow-up with your doctor on Sunday. Make sure to get pl enty of rest and take it easy over the weekend. Return to the emergency room for any worsening symptoms. Is patient prescribed a controlled substance at d/c from ED?: No Referrals: Christina Jones DO [Primary Care Provider] - 1-2 days Time of Disposition: 13:39
[2021-02-03] MEDS ORDERED: ACET/COD 300 MG/30 MG STARTER PACK 6 TAB BTL PO STA (13:56)
== END 2021-02-03 14:00 | disposition home or self-care (01) ==
LOC: EC 11:32
DX: S09.90XA Unspecified injury of head, initial encounter (principal); I10 Essential (primary) hypertension; E78.5 Hyperlipidemia, unspecified; F41.9 Anxiety disorder, unspecified; F31.9 Bipolar disorder, unspecified; F17.200 Nicotine dependence, unspecified, uncomplicated; Z79.02 Long term (current) use of antithrombotics/antiplatelets; Z79.899 Other long term (current) drug therapy; Z88.2 Allergy status to sulfonamides; Z88.8 Allergy status to other drugs, medicaments and biological substances; Z86.73 Personal history of transient ischemic attack (TIA), and cerebral infarction without residual deficits; Z85.048 Personal history of other malignant neoplasm of rectum, rectosigmoid junction, and anus; W18.2XXA Fall in (into) shower or empty bathtub, initial encounter; Y92.002 Bathroom of unspecified non-institutional (private) residence as the place of occurrence of the external cause
CPT/HCPCS: 72125; 70450; 99284; 96372 ×2; J2270; J1170

== ENCOUNTER 2021-02-22 16:50 | Emergency (ER) | payer OTHER ==
[2021-02-22 20:03] VITALS: TEMP 98.1
--- NOTE | 2021-02-22 20:03 | ED ---
General Adult HPI - General Stated complaint: Diarrhea/vomiting/abd pain/ - History of Present Illness Initial comments: Patient was seen for medical screening for advanced triage purposes: Patient is a 60-year-old female with a past medical history of Crohn's, diverticulitis, an al cancer who presents for a chief complaint of diarrhea. Patient states the diarrhea has been several times throughout the day. This has been ongoing for the past 6 days. It started 2 days after patient received her COVID vaccine. Patient states Dr Jones sent her in because of her GI history. She is also having 9/10 LLQ pain. Patient denies taking any immunosuppresants. Pt denies fevers, chills, NV, CP, SOB. I did formally see patient in the emergency room. HPI as documented above. - Related Data Home Medications Medication Instructions Recorded Confirmed Atorvastatin [Lipitor] 40 mg PO DAILY 06/17/20 02/22/21 Clopidogrel Bisulfate [Plavix] 75 mg PO DAILY 06/17/20 02/22/21 DULoxetine HCL [Cymbalta] 60 mg PO DAILY 02/03/21 02/22/21 Nitroglycerin Sl Tabs [Nitrostat] 0.4 mg SUBLINGUAL Q5M PRN 02/03/21 02/22/21 Losartan Potassium 100 mg PO DAILY 02/22/21 02/22/21 Allergies Allergy/AdvReac Type Severity Reaction Status Date / Time Sulfa (Sulfonamide Allergy Rash/Hives Verified 02/22/21 21:30 Antibiotics) sumatriptan [From Imitrex] Allergy Chest Pain Verified 02/22/21 21:30 sumatriptan succinate Allergy Chest Pain Verified 02/22/21 21:30 [From Imitrex] Review of Systems ROS Statement: Those systems with pertinent positive or pertinent negative responses have been documented in the HPI. ROS Other: All systems not noted in ROS Statement are negative. Past Medical History Past Medical History: Cancer, CVA/TIA, Hyperlipidemia, Hypertension Additional Past Medical History / Comment(s): CROHNS, IBS, BULGING DISCS, rectal prolapse, vaginal prolapse, shingles, diverticulitis, ulcerative colitis, anal cancer History of Any Multi-Drug Resistant Organisms: MRSA Date of last positivie culture/infection: 1997 MDRO Source:: Head Past Surgical History: Appendectomy, Bowel Resection, Section, Cholecystectomy, Hysterectomy Past Anesthesia/Blood Transfusion Reactions: No Reported Reaction Past Psychological History: Anxiety, Bipolar, Depression Smoking Status: Current every day smoker Past Alcohol Use History: Rare Past Drug Use History: Marijuana - Past Family History Mother Family Medical History: Hypertension General Exam General appearance: alert, in no apparent distress Head exam: Present: atraumatic, normocephalic, normal inspection Eye exam: Present: normal appearance, PERRL, EOMI. Absent: scleral icterus, conjunctival injection, periorbital swelling ENT exam: Present: normal exam, mucous membranes moist Neck exam: Present: normal inspection. Absent: tenderness, meningismus, lymphadenopathy Respiratory exam: Present: normal lung sounds bilaterally. Absent: respiratory distress, wheezes, rales, rhonchi, stridor Cardiovascular Exam: Present: regular rate, normal rhythm, normal heart sounds. Absent: systolic murmur, diastolic murmur, rubs, gallop, clicks GI/Abdominal exam: Present: soft, tenderness (Minimal abdominal tenderness generalized in nature), normal bowel sounds. Absent: distended, guarding, rebound, rigid Course Vital Signs 02/22/21 02/22/21 19:59 22:02 Temperature 98.1 F Pulse Rate 85 71 Respiratory 20 18 Rate Blood Pressure 186/101 187/101 O2 Sat by Pulse 99 97 Oximetry Medical Decision Making - Medical Decision Making Vitals are stable. CBC CMP unremarkable. CT abdomen and pelvis are negative for acute change. Patient was given pain medication and had significant improvement. Patient is stable for discharge home. Patient was given a stool cup and a prescription for stool culture and C. diff sample. She was unable to give a sample in the emergency room. She will follow up with GI and return for any worsening symptoms. - Lab Data Result diagrams: 02/22/21 20:26 02/22/21 20:26 Lab Results 02/22/21 02/22/21 02/22/21 Range/Units 20:26 20:26 20:26 WBC 9.8 (3.8-10.6) k/uL RBC 4.38 (3.80-5.40) m/uL Hgb 13.8 (11.4-16.0) gm/dL Hct 41.9 (34.0-46.0) % MCV 95.7 (80.0-100.0) fL MCH 31.4 (25.0-35.0) pg MCHC 32.8 (31.0-37.0) g/dL RDW 13.3 (11.5-15.5) % Plt Count 346 (150-450) k/uL MPV 7.0 Neutrophils % 71 % Lymphocytes % 22 % Monocytes % 4 % Eosinophils % 2 % Basophils % 1 % Neutrophils # 7.0 (1.3-7.7) k/uL Lymphocytes # 2.1 (1.0-4.8) k/uL Monocytes # 0.4 (0-1.0) k/uL Eosinophils # 0.2 (0-0.7) k/uL Basophils # 0.1 (0-0.2) k/uL Sodium 139 (137-145) mmol/L Potassium 4.1 (3.5-5.1) mmol/L Chloride 106 (98-107) mmol/L Carbon Dioxide 25 (22-30) mmol/L Anion Gap 8 mmol/L BUN 9 (7-17) mg/dL Creatinine 0.60 (0.52-1.04) mg/dL Est GFR (CKD-EPI)AfAm >90 (>60 ml/min/1.73 sqM) Est GFR (CKD-EPI)NonAf >90 (>60 ml/min/1.73 sqM) Glucose 105 H (74-99) mg/dL Calcium 9.3 (8.4-10.2) mg/dL Total Bilirubin 0.5 (0.2-1.3) mg/dL AST 27 (14-36) U/L ALT 15 (4-34) U/L Alkaline Phosphatase 66 (38-126) U/L Total Protein 7.7 (6.3-8.2) g/dL Albumin 4.6 (3.5-5.0) g/dL Amylase 79 (30-110) U/L Lipase 213 (23-300) U/L Urine Color Light Yellow Urine Appearance Clear (Clear) Urine pH 6.5 (5.0-8.0) Ur Specific [place] 1.012 (1.001-1.035) Urine Protein Negative (Negative) Urine Glucose (UA) Negative (Negative) Urine Ketones Negative (Negative) Urine Blood Small H (Negative) Urine Nitrite Negative (Negative) Urine Bilirubin Negative (Negative) Urine Urobilinogen <2.0 (<2.0) mg/dL Ur Leukocyte Esterase Negative (Negative) Urine RBC 12 H (0-5) /hpf Urine WBC 1 (0-5) /hpf Ur Squamous Epith Cells 3 (0-4) /hpf Urine Bacteria Rare H (None) /hpf Hyaline Casts 4 H (0-2) /lpf Urine Mucus Occasional H (None) /hpf Disposition Clinical Impression: Abdominal pain Disposition: HOME SELF-CARE Condition: Good Instructions (If sedation given, give patient instructions): Abdominal Pain (ED) Additional Instructions: Please follow up with primary care and GI. Take Tylenol 3 as needed for pain. Get stool sample results. Return to the emergency room for any worsening symptoms. Is patient prescribed a controlled substance at d/c from ED?: No Referrals: Christina Jones DO [Primary Care Provider] - 1-2 days Time of Disposition: 22:33
[2021-02-22] MEDS ORDERED: HYDROmorphone 0.5 MG/0.5 ML SYRINGE IVP STA ×2 (20:24→21:53)
[2021-02-22 20:32] LABS: Basophils # (A) 0.1 k/uL (0-0.2); Basophils % (A) 1 %; Eosinophils # (A) 0.2 k/uL (0-0.7); Eosinophils % (A) 2 %; HCT 41.9 % (34.0-46.0); HGB 13.8 gm/dL (11.4-16.0); Lymphocytes # (A) 2.1 k/uL (1.0-4.8); Lymphocytes % (A) 22 %; MCH 31.4 pg (25.0-35.0); MCHC 32.8 g/dL (31.0-37.0); MCV 95.7 fL (80.0-100.0); Monocytes # (A) 0.4 k/uL (0-1.0); Monocytes % (A) 4 %; Neutrophils % (A) 71 %; Platelet Count 346 k/uL (150-450); RBC 4.38 m/uL (3.80-5.40); RDW 13.3 % (11.5-15.5); WBC 9.8 k/uL (3.8-10.6)
[2021-02-22 20:42] LABS: ALT 15 U/L (4-34); AST 27 U/L (14-36); African American GFR (CKD) >90 (>60 ml/min/1.73 sqM); Albumin 4.6 g/dL (3.5-5.0); Alkaline Phosphatase 66 U/L (38-126); Amylase 79 U/L (30-110); Anion Gap 8 mmol/L; Blood Urea Nitrogen 9 mg/dL (7-17); Calcium 9.3 mg/dL (8.4-10.2); Carbon Dioxide 25 mmol/L (22-30); Chloride 106 mmol/L (98-107); Glucose 105 mg/dL (74-99); Lipase 213 U/L (23-300); Non-African American GFR(CKD) >90 (>60 ml/min/1.73 sqM); Potassium 4.1 mmol/L (3.5-5.1); Sodium 139 mmol/L (137-145); Total Bilirubin 0.5 mg/dL (0.2-1.3); Total Protein 7.7 g/dL (6.3-8.2)
[2021-02-22 20:47] LABS: Appearance,Urine Clear (Clear); Bacteria,Urine Rare /hpf; Bilirubin,Urine Negative (Negative); Blood,Urine Small (Negative); Color,Urine Light Yellow; Glucose,Urine (UA) Negative (Negative); Hyaline Casts,Urine 4 /lpf (0-2); Ketones,Urine Negative (Negative); Leukocyte Esterase,Urine Negative (Negative); Mucus,Urine Occasional /hpf; Nitrite,Urine Negative (Negative); PH, Urine 6.5 (5.0-8.0); Protein,Urine Negative (Negative); RBC,Urine 12 /hpf (0-5); Specific Gravity,Urine 1.012 (1.001-1.035); Squamous Epithelial Cell,Urine 3 /hpf (0-4); Urobilinogen,Urine <2.0 mg/dL (<2.0); WBC,Urine 1 /hpf (0-5)
--- NOTE | 2021-02-22 21:24 | CT ---
EXAMINATION TYPE: CT abdomen pelvis w con DATE OF EXAM: 02/22/2021 COMPARISON: 06/17/2020 HISTORY: Diarrhea post first dose of covid vaccine CT DLP: 664.1 mGycm Automated exposure control for dose reduction was used. CONTRAST: Performed with IV Contrast, patient injected with 80 mL of Isovue 300. Images obtained from the diaphragm to the floor the pelvis with IV contrast. Lung bases are clear of infiltrate. There is no pleural effusion. Heart size is normal. There is no p ericardial effusion. Liver spleen stomach pancreas appear normal. Bile ducts are not dilated. There are clips from cholecy stectomy. There is no adrenal mass. Kidneys show satisfactory contrast opacification. There is no hydronephrosi s. Delayed images show normal renal excretion. Ureters are not dilated. There is no retroperitoneal a denopathy. Bladder distends smoothly. There is no inguinal hernia. There is no free fluid in the pelv is. There is previous surgery at the rectosigmoid junction. There is no mesenteric edema. There is no ascites or free air. There is no bowel obstruction. Appendi x is not seen. There is no sign of thickened appendix. Lumbar vertebra have normal alignment. Disc spaces are fairly normal. There is no compression fractur e. The bony pelvis is intact. Hip joints appear intact. IMPRESSION: Negative CT scan abdomen and pelvis. No adverse change compared to old exam.
[2021-02-22 22:13] VITALS: BP 187/101; PULSE 71; RESP 18
[2021-02-22] MEDS ORDERED: ACET/COD 300 MG/30 MG STARTER PACK 6 TAB BTL PO STA (22:31)
== END 2021-02-22 22:42 | disposition home or self-care (01) ==
LOC: EC 16:50
DX: R10.12 Left upper quadrant pain (principal); R19.7 Diarrhea, unspecified; F41.9 Anxiety disorder, unspecified; F31.9 Bipolar disorder, unspecified; E78.5 Hyperlipidemia, unspecified; I10 Essential (primary) hypertension; F17.200 Nicotine dependence, unspecified, uncomplicated; Z79.899 Other long term (current) drug therapy; Z88.2 Allergy status to sulfonamides; Z88.8 Allergy status to other drugs, medicaments and biological substances; Z86.14 Personal history of Methicillin resistant Staphylococcus aureus infection; Z86.73 Personal history of transient ischemic attack (TIA), and cerebral infarction without residual deficits; Z90.49 Acquired absence of other specified parts of digestive tract; Z90.710 Acquired absence of both cervix and uterus; Z85.048 Personal history of other malignant neoplasm of rectum, rectosigmoid junction, and anus
CPT/HCPCS: 36415; 80053; 82150; 83690; 85025; 81001; 74177; 99284; 96374; 96376; J1170; Q9967

== ENCOUNTER → 2021-08-15 | Outpatient (CLI) | payer BC ==
--- NOTE | 2021-08-15 10:34 | CTL ---
EXAMINATION TYPE: CT Low Dose Lung DATE OF EXAM ORDERED: 08/15/2021 HISTORY: 61-year-old female personal history of tobacco use. Lung cancer screening CT DLP: 79.[address] CTDI: 2.3 mGy Automated exposure control for dose reduction was used. SCREENING VISIT: Baseline screening COMPARISON: 05/15/2014 TECHNIQUE: Low dose computed tomography scan was performed through the chest with coronal and sagitta l reconstructions. CT DIAGNOSTIC QUALITY: Satisfactory FINDINGS: Heart normal size without pericardial effusion. Borderline ectasia aortic root at 3.5 cm. Minimal atherosclerotic arch calcifications. Conventional a [facility] vessel branching anatomy. Prominent lower right paratracheal lymph node measuring 9 mm measuring 8 mm, previously. No thoracic lymphadenopathy by CT size criteria line 4 noncontrast technique. Stable 3 mm peripheral right upper lobe pulmonary nodule, axial images 56. Subtle 3 mm lateral right apical pulmonary nodule not well seen previously, axial image 39. 2 mm lateral right apical pulmonary nodule just below axial image 47 appears unchanged. 2 mm lateral left upper lobe pulmonary nodule, axial image 70. 2 mm lateral left apical pulmonary nodule, axial image 31, unchanged. Mild diffuse bronchial wall thickening suggests bronchitis or chronic asthma. Some minimal strandy at electasis inferior lingula. No consolidation or pleural effusion. Small fat-containing right-sided Bochdalek hernia. Visualized upper abdomen shows cholecystectomy cli ps. Bones: No osseous destructive process. IMPRESSION: 1. Lung RADS 2, benign. A few scattered 3 mm and smaller pulmonary nodules on baseline screening. 2. Mild diffuse bronchial wall thickening suggests bronchitis or chronic asthma. 3. Recommend smoking cessation. CT LUNG RAD AND CT CHEST RECOMMENDATION: Lung-Rad 2 Benign Appearance or Behavior: Continue annual sc reening with LDCT in 12 months.
== END | disposition home or self-care (01) ==
LOC: RADCTMAIN 07:40
PROVIDERS: ATTEND Internal Medicine Rheumatology
DX: Z12.2 Encounter for screening for malignant neoplasm of respiratory organs (principal); R91.8 Other nonspecific abnormal finding of lung field; Z87.891 Personal history of nicotine dependence
CPT/HCPCS: 71271

== ENCOUNTER 2022-02-01 08:19 | Observation (INO) | payer BC ==
[~2022-02-01 08:19] MED LIST changes: +ACETAMINOPHEN TAB 500 MG TAB PO PRN; +DEXAMETHASONE SOD PHOSPHATE 4 MG/ML 1 ML VIAL IV ONE; +HEPARIN SODIUM,PORCINE/PF 5,000 UNIT/0.5 ML SYRINGE SQ PRN; +LIDOCAINE 1% (10MG/ML) FOR IV START INTRADERMA PRN; +MIDAZOLAM 2 MG/2 ML VIAL IV PRN; +ONDANSETRON 4 MG/2 ML VIAL IVP ONE; -REGADENOSON 0.4 MG/5 ML SYRINGE IV ONE
[2022-02-01] MEDS: LACTATED RINGERS 1,000 ML IV SCH ×2 (09:10→16:26)
[2022-02-01 09:13] LABS: Glucose,Whole Blood 100 mg/dL (75-99)
[2022-02-01 09:37] LABS: Basophils # (A) 0.1 k/uL (0-0.2); Basophils % (A) 1 %; Eosinophils # (A) 0.2 k/uL (0-0.7); Eosinophils % (A) 2 %; HCT 47.1 % (34.0-46.0); HGB 15.4 gm/dL (11.4-16.0); Lymphocytes % (A) 34 %; MCHC 32.7 g/dL (31.0-37.0); MCV 101.1 fL (80.0-100.0); Macrocytosis Slight; Monocytes # (A) 0.4 k/uL (0-1.0); Monocytes % (A) 4 %; Neutrophils % (A) 57 %; Platelet Count 331 k/uL (150-450); RBC 4.66 m/uL (3.80-5.40); RDW 13.6 % (11.5-15.5); WBC 8.8 k/uL (3.8-10.6)
[2022-02-01] MEDS ORDERED: MIDAZOLAM 2 MG/2 ML VIAL IV ONE (10:01)
--- NOTE | 2022-02-01 10:34 | P.GSHP ---
History of Present Illness H&P Date: 02/01/22 Chief Complaint: Incisional hernia This is a 61-year-old female who presents for laparoscopic robotic-assisted repair of incisional hernia. Patient has a low midline incisional hernia related to previous sport or laparotomy. Past Medical History Past Medical History: Cancer, CVA/TIA, GERD/Reflux, Hyperlipidemia, Hypertension, Osteoarthritis (OA) Additional Past Medical History / Comment(s): CROHNS, IBS, BULGING LUMBAR DISCS, rectal prolapse, anal cancer, vaginal prolapse, shingles, TIA 3 years ago-no res idual effects, new mole in vag. area-sees [employer] next week History of Any Multi-Drug Resistant Organisms: MRSA Date of last positivie culture/infection: 1997 MDRO Source:: Head Past Surgical History: Appendectomy, Bowel Resection, Section, Cholecystectomy, Hysterectomy Additional Past Surgical History / Comment(s): anal surg. to remove cancer, cataracts removed Past Anesthesia/Blood Transfusion Reactions: No Reported Reaction Smoking Status: Current every day smoker - Past Family History Mother Family Medical History: Hypertension Medications and Allergies Home Medications Medication Instructions Recorded Confirmed Type Clopidogrel Bisulfate [Plavix] 75 mg PO DAILY 06/17/20 01/31/22 History Nitroglycerin Sl Tabs [Nitrostat] 0.4 mg SUBLINGUAL Q5M PRN 02/03/21 01/31/22 History Losartan Potassium 100 mg PO DAILY 02/22/21 01/31/22 History Acetaminophen [Tylenol Extra 500 mg PO Q6H PRN 01/31/22 02/01/22 History Strength] Ergocalciferol [Vitamin D2 (1250 1,250 mcg PO WEEKLY 01/31/22 02/01/22 History Mcg = 62885 Iu)] Pantoprazole [Protonix] 40 mg PO DAILY 01/31/22 01/31/22 History Allergies Allergy/AdvReac Type Severity Reaction Status Date / Time Sulfa (Sulfonamide Allergy Rash/Hives Verified 01/31/22 09:26 Antibiotics) sumatriptan [From Imitrex] Allergy Chest Pain Verified 01/31/22 09:26 sumatriptan succinate Allergy Chest Pain Verified 01/31/22 09:26 [From Imitrex] Surgical - Exam Vital Signs Temp Pulse Resp BP Pulse Ox 97.0 F L 75 18 126/84 96 02/01/22 09:06 02/01/22 09:06 02/01/22 09:06 02/01/22 09:06 02/01/22 09:06 - General well developed, well nourished, no distress - Eyes PERRL - ENT normal pinna - Neck no masses - Respiratory normal expansion - Cardiovascular Rhythm: regular - Abdomen 4 cm incisional hernia located in the lower midline position Abdomen: soft, non tender Results - Labs 02/01/22 09:11 Abnormal Lab Results - Last 24 Hours (Table) 02/01/22 02/01/22 Range/Units 09:11 09:12 Hct 47.1 H (34.0-46.0) % MCV 101.1 H (80.0-100.0) fL POC Glucose (mg/dL) 100 H (75-99) mg/dL Assessment and Plan Assessment: Incisional hernia. We'll perform laparoscopic robotic-assisted repair. I did discuss the patient with possibility of adhesions would make laparoscopic repair difficult and she may be converted to an open procedure.
[2022-02-01] MEDS ORDERED: SUCCINYLCHOLINE CHLORIDE 100 MG/5 ML SYR IV ONE (10:38)
[2022-02-01] MEDS ORDERED: PROPOFOL 10 MG/ML 20 ML VIAL IV ONE (10:38)
[2022-02-01] MEDS ORDERED: SUGAMMADEX SODIUM 200 MG/2 ML SDV IV ONE (10:38)
[2022-02-01] MEDS ORDERED: ROPIVACAINE 5 MG/ML 30 ML VIAL ONE (10:38)
[2022-02-01] MEDS ORDERED: fentaNYL (PF) 50 MCG/ML 2 ML AMP ONE (10:38)
[2022-02-01] MEDS ORDERED: SODIUM CHLORIDE 0.9% (PF) 10 ML VIAL ONE (10:38)
[2022-02-01] MEDS ORDERED: HYDROmorphone (PF) 1 MG/ML ONE (10:38)
[2022-02-01] MEDS ORDERED: MIDAZOLAM 2 MG/2 ML VIAL ONE (10:38)
[2022-02-01] MEDS ORDERED: ROCURONIUM 10 MG/ML (5 ML VIAL) IV ONE (10:38)
[2022-02-01] MEDS ORDERED: KETAMINE 10 MG/ML 20 ML VIAL ONE (10:38)
[2022-02-01] MEDS ORDERED: BUPIVACAIN-EPI 0.25%-1:200,000 30 ML VIAL SQ ONE (11:05)
[2022-02-01] MEDS ORDERED: LACTATED RINGERS 1,000 ML IV ONE (11:40)
--- NOTE | 2022-02-01 12:03 | P.OP ---
Date of Procedure: 02/01/22 Preoperative Diagnosis: Incisional hernia Postoperative Diagnosis: Incisional hernia Procedure(s) Performed: Laparoscopic robotic-assisted repair of incisional hernia Anesthesia: JOHANA Surgeon: Antonio Schmidt IV fluids (ml): 5 Pathology: none sent Condition: stable Disposition: PACU Description of Procedure: The patient was placed on the operating table in the supine position. He received general anesthesia. His abdomen was prepped and draped usual fashion. Using a 5 mm optical trocar under direct visualization the peritoneal cavity was entered in the left upper quadrant. The abdomen was then insufflated. The laparoscope was placed back into the perineal cavity. Next a 8 mm robotic trocar was placed in the left lower quadrant and a 12 mm robotic trocar was placed in the left lateral position. The original 5 mm trocar was exchanged for a 8 mm robotic trocar. The patient's placed in the left side up position. And the patient was docked to the robot. The incisional hernia was visualized. Using hook cautery the peritoneum over the incisional hernia was excised. The fascial opening was repaired using 0V LOC suture. Next a piece of 11 cm round ventral light ST mesh was placed into the. Cavity and secured with 2 OV lock suture. The patient was undocked the robot. The needles were retrieved. The fascia of the 12 mm trocar site was closed with 0 Ethibond suture. Skin was closed interrupted 3-0 Monocryl suture. Dermabond dressings was applied. Patient tolerated procedure well and was sent to recovery room stable condition.
[2022-02-01] MEDS: HYDROmorphone 0.5 MG/0.5 ML SYRINGE IVP PRN ×2 (12:11→12:29)
[2022-02-01] MEDS ORDERED: hydrALAZINE HCL 20 MG/ML 1 ML VIAL IVP ONE ×2 (12:20→12:38)
[2022-02-01] MEDS ORDERED: diphenhydrAMINE 50 MG/ML 1 ML VIAL IVP ONE (12:30)
[2022-02-01] MEDS ORDERED: MEPERIDINE 50 MG/ML SYRINGE IVP ONE (13:25)
[2022-02-01] MEDS: HYDROmorphone 1 MG/ML 1 ML SYRINGE IVP PRN ×3 (16:41→23:39)
[2022-02-02] MEDS: HYDROmorphone 1 MG/ML 1 ML SYRINGE IVP PRN ×3 (06:20→20:45)
[2022-02-02] MEDS: LACTATED RINGERS 1,000 ML IV SCH ×3 (07:14→14:07)
[2022-02-02] MEDS: TAMSULOSIN 0.4 MG CAP.ER.24H PO SCH (09:39)
[2022-02-02] MEDS: PANTOPRAZOLE 40 MG/10 ML VIAL IVP SCH (09:39)
[2022-02-02] MEDS: HYDROcodone/APAP 10-325MG 1 EACH TAB PO PRN ×2 (09:39→17:43)
[2022-02-02] MEDS: LOSARTAN 50 MG TAB PO SCH (09:39)
[2022-02-02 10:34] VITALS: BMI 21.8
--- NOTE | 2022-02-02 10:56 | P.ANPRN ---
Procedure Note - Anesthesia - Nerve Block Performed Bilateral Erector Spinae Single Time Out Performed: Yes Date of Procedure: 02/01/22 Procedure Start Time: 10:04 Procedure Stop Time: 10:10 Location of Patient: PreOp Indication: Acute Post-Operative Pain, Requested by Surgeon Sedation Type: Sedate with meaningful contact maintained Preparation: Sterile Prep Position: Prone Needle Types: Pajunk Needle Gauge: 21 Ultrasound used to visualize needle placement: Yes Ultrasound used to observe medication spread: Yes Blood Aspirated: No Pain Paresthesia on Injection Noted: No Resistance on Injection: Normal Image Stored and Saved: Yes Events: Uneventful and Well Tolerated (ropi .5% 15cc plus ns 10cc given bilaterally at L1)
[2022-02-02] MEDS ORDERED: NITROGLYCERIN SL TABS 0.4 MG TAB SUBLINGUAL PRN (12:13)
--- NOTE | 2022-02-02 12:24 | P.CONS ---
History of Present Illness - Reason for Consult Consult date: 02/02/22 Medical management hypertension Requesting physician: Antonio Schmidt - Chief Complaint Status post incisional hernia repair, pain management - History of Present Illness This is a 61-year-old female with past medical history of nicotine dependence, marijuana use, hypertension, hyperlipidemia, CVA/TIA, gastroesophageal reflux disease, osteoarthritis, Crohn's, IBS, multiple abdominal surgeries, anxiety/depression, bipolar disorder and multiple other medical issues status post laparoscopic radical-assisted repair of incisional hernia. Admitted secondary to uncontrolled postoperative pain. Patient developed urinary retention postop, straight cath'd for 700 MLS. Recently medicated with Dilaudid IV push, reports pain controlled. Consuming coffee, denies nausea or vomiting. Passing flatus, no bowel movement. Denies chest pain, palpitations or shortness of breath. Afebrile. Review of Systems ROS Statement: Those systems with pertinent positive or pertinent negative responses have been documented in the HPI. ROS Other: All systems not noted in ROS Statement are negative. Past Medical History Past Medical History: Cancer, CVA/TIA, GERD/Reflux, Hyperlipidemia, Hypertension, Osteoarthritis (OA) Additional Past Medical History / Comment(s): CROHNS, IBS, BULGING LUMBAR DISCS, rectal prolapse, anal cancer, vaginal prolapse, shingles, TIA 3 years ago-no residual effects, new mole in vag. area-sees [employer] next week History of Any Multi-Drug Resistant Organisms: MRSA Year Discovered:: 1997 MDRO Source:: Head Past Surgical History: Appendectomy, Bowel Resection, Section, Cholecystectomy, Hysterectomy Additional Past Surgical History / Comment(s): anal surg. to remove cancer, cataracts removed Past Anesthesia/Blood Transfusion Reactions: No Reported Reaction Past Psychological History: Anxiety, Bipolar, Depression Smoking Status: Current every day smoker Past Alcohol Use History: None Reported Additional Past Alcohol Use History / Comment(s): down to 4 cigs/day, has smoked for 30 yrs. Past Drug Use History: Marijuana Additional Drug Use History / Comment(s): rare use - Past Family History Mother Family Medical History: Hypertension Medications and Allergies Home Medications Medication Instructions Recorded Confirmed Type Clopidogrel Bisulfate [Plavix] 75 mg PO DAILY 06/17/20 01/31/22 History Nitroglycerin Sl Tabs [Nitrostat] 0.4 mg SUBLINGUAL Q5M PRN 02/03/21 01/31/22 History Losartan Potassium 100 mg PO DAILY 02/22/21 01/31/22 History Acetaminophen [Tylenol Extra 500 mg PO Q6H PRN 01/31/22 02/01/22 History Strength] Ergocalciferol [Vitamin D2 (1250 1,250 mcg PO WEEKLY 01/31/22 02/01/22 History Mcg = 01787 Iu)] Pantoprazole [Protonix] 40 mg PO DAILY 01/31/22 01/31/22 History Acetaminophen Tab [Tylenol] 650 mg PO Q6H #30 tab 02/01/22 Rx Docusate [Colace] 100 mg PO BID #20 capsule 02/01/22 Rx Ibuprofen [Motrin] 600 mg PO Q6HR PRN #40 tab 02/01/22 Rx oxyCODONE HCL [OxyIR] 5 mg PO Q6H PRN 3 Days #10 tab 02/01/22 Rx Allergies Allergy/AdvReac Type Severity Reaction Status Date / Time Sulfa (Sulfonamide Allergy Rash/Hives Verified 01/31/22 09:26 Antibiotics) sumatriptan [From Imitrex] Allergy Chest Pain Verified 01/31/22 09:26 sumatriptan succinate Allergy Chest Pain Verified 01/31/22 09:26 [From Imitrex] Physical Exam Vitals: Vital Signs Temp Pulse Pulse Resp BP Pulse Ox 02/02/22 07:37 98.2 F 73 146/69 94 L 02/02/22 02:00 98.5 F 63 16 136/64 93 L 02/01/22 20:00 98.3 F 66 17 153/78 97 02/01/22 16:41 98.9 F 77 18 160/82 96 02/01/22 15:09 89 20 129/78 93 L 02/01/22 14:12 85 18 127/72 98 02/01/22 13:42 88 16 127/80 98 02/01/22 13:20 74 16 107/69 98 02/01/22 13:10 98 18 128/88 94 L 02/01/22 12:55 103 H 22 168/104 94 L 02/01/22 12:48 82 16 136/71 92 L 02/01/22 12:31 89 16 190/83 99 02/01/22 12:21 204/100 02/01/22 12:14 76 16 204/100 99 02/01/22 11:58 97.3 F L 62 12 192/90 99 02/01/22 10:25 71 18 151/86 99 02/01/22 09:06 97.0 F L 75 18 126/84 96 Intake and Output 02/01/22 02/02/22 02/02/22 22:59 06:59 14:59 Output Total 700 Balance -700 Output: Urine 700 Straight 700 Other: # Voids 4 Weight 52.4 kg PHYSICAL EXAM: VITAL SIGNS: [As above] GENERAL: Sitting up in bed, no acute distress. HEENT: Conjunctivae normal. eyes normal. Oral mucosa moist NECK: No JVD. No thyroid enlargement. No LNs CARDIOVASCULAR: S1, S2 regular.No murmur RESPIRATION: Breath sounds diminished in the bases. No rhonchi or crackles. No bronchial breathing. ABDOMEN: Soft, status post surgery, laparoscopic sites clean, dry, well ap proximated. Binder present. No guarding. Bowel sounds heard. LEGS: No edema. no swelling PSYCHIATRY: Alert and oriented X3, mood and affect normal. NERVOUS SYSTEM: Cranial N 2-12 grossly normal. No focal deficits. Strength and sensation grossly intact. Skin: Warm and dry, no rash Results CBC & Chem 7: 02/01/22 09:11 Labs: Abnormal Lab Results - Last 24 Hours (Table) 02/01/22 02/01/22 Range/Units 09:11 09:12 Hct 47.1 H (34.0-46.0) % MCV 101.1 H (80.0-100.0) fL POC Glucose (mg/dL) 100 H (75-99) mg/dL Assessment and Plan Assessment: Incisional hernia, status post laparoscopic robotic assisted repair Urinary retention, postoperative, expected outcome Gastroesophageal reflux disease Hypertension Hyperlipidemia History of CVA, TIA History of eye redness, Crohn's History of multiple abdominal surgeries Bipolar disorder Depression, anxiety Ongoing nicotine dependence Marijuana use Plan: Continue on current medication regime ,monitoring and symptomatic treatment. Flomax added to med regimen. Pain management, [place] added to med regimen. Increase ambulation as tolerated. Aggressive pulmonary toileting with incentive spirometer ordered. Smoking cessation reinforced. Discharge planning in progress, possibly tomorrow, pending pain controlled, DC recommendations/ clearance per surgery. The impression and plan of care has been dictated as directed. : I performed a history and examination of this patient, discussed the same with the dictator. I agree with the dictator's note ,documented as a scribe. Any additional findings or plans will be noted.
--- NOTE | 2022-02-02 12:45 | P.PN ---
Subjective Progress Note Date: 02/02/22 CHIEF COMPLAINT: Incisional hernia HISTORY OF PRESENT ILLNESS: Patient is postop day #1 status post laparoscopic robotic-assisted repair of incisional hernia. Patient complaining of abdominal pain. She reports that her pain was not controlled with the pain pills. Also complaining of urinary retention. She did require to be Sta[place] cath this morning for 700 mL. Medicine service has adjusted pain medication. Patient did have flatus. Denies any bowel movement. Denies any vomiting. Did have nausea with pain. Afebrile WBC 8.8 hemoglobin 15.4 PHYSICAL EXAM: VITAL SIGNS: Reviewed. GENERAL: Well-developed in no acute distress. HEENT: No sclera icterus. Extraocular movements grossly intact. Moist buccal mucosa. Head is atraumatic, normocephalic. ABDOMEN: Soft. Nondistended. Diffuse tenderness. Incision sites clean dry and intact NEUROLOGIC: Alert and oriented. Cranial nerves II through XII grossly intact. ASSESSMENT: 1. Incisional hernia status post laparoscopic robotic-assisted repair PLAN: -Continue pain control -Bladder Scan patient to evaluate for urinary retention. Agree with adding Flomax -Continue abdominal binder -Encouraged patient to use incentive spirometer -Encouraged patient to ambulate -Encouraged patient to use the ice packs DVT prophylaxis Lovenox and GI prophylaxis Protonix - Physician English As A [employer] Language Instructor note has been reviewed by physician. Signing provider agrees with the documented findings, assessment, and plan of care. Objective - Vital Signs Vital signs: Vital Signs Temp 98.2 F 02/02/22 07:37 Pulse 73 02/02/22 07:37 Resp 16 02/02/22 02:00 BP 146/69 02/02/22 07:37 Pulse Ox 94 L 02/02/22 07:37 Intake & Output 02/01/22 02/02/22 02/02/22 18:59 06:59 18:59 Intake Total 1850 Output Total 5 700 Balance 1845 -700 Weight 52.4 kg 52.4 kg Intake: IV 1850 Output: Urine 700 Straight 700 Estimated Blood Loss 5 Other: # Voids 4 - Labs CBC & Chem 7: 02/01/22 09:11
[2022-02-02] MEDS: ENOXAPARIN 40 MG/0.4 ML SYRINGE SQ SCH (13:00)
[2022-02-02] MEDS: ONDANSETRON 4 MG/2 ML VIAL IVP PRN (17:43)
[2022-02-03] MEDS: LACTATED RINGERS 1,000 ML IV SCH ×4 (01:21→17:01)
[2022-02-03] MEDS: HYDROcodone/APAP 10-325MG 1 EACH TAB PO PRN ×2 (01:23→07:57)
[2022-02-03] MEDS: ENOXAPARIN 40 MG/0.4 ML SYRINGE SQ SCH (07:56)
[2022-02-03] MEDS: PANTOPRAZOLE 40 MG/10 ML VIAL IVP SCH (07:56)
[2022-02-03] MEDS: LOSARTAN 50 MG TAB PO SCH (07:57)
[2022-02-03] MEDS: TAMSULOSIN 0.4 MG CAP.ER.24H PO SCH (07:57)
[2022-02-03] MEDS: HYDROmorphone 1 MG/ML 1 ML SYRINGE IVP PRN ×2 (09:42→18:00)
[2022-02-03] MEDS: KETOROLAC 15 MG/ML 1 ML VIAL IVP SCH ×3 (12:39→23:01)
--- NOTE | 2022-02-03 13:32 | P.PN ---
Subjective Progress Note Date: 02/03/22 CHIEF COMPLAINT: Incisional hernia HISTORY OF PRESENT ILLNESS: Patient is postop day #2 status post laparoscopic robotic-assisted repair of incisional hernia. Patient is complaining of abdominal pain. She reports that her pain is not controlled. She is very teary-eyed. She also had urinary retention and required Maxwell catheter placement yesterday. Medicine service to place her on Flomax. Patient does report flatus. Denies any bowel movement. She has been up and ambulating. Reports poor oral intake. Denies any vomiting. She has had nausea. Afebrile. No new lab PHYSICAL EXAM: VITAL SIGNS: Reviewed. GENERAL: Well-developed in no acute distress. HEENT: No sclera icterus. Extraocular movements grossly intact. Moist buccal mucosa. Head is atraumatic, normocephalic. ABDOMEN: Soft. Nondistended. Diffuse tenderness. Incision sites clean dry and intact NEUROLOGIC: Alert and oriented. Cranial nerves II through XII grossly intact. ASSESSMENT: 1. Incisional hernia status post laparoscopic robotic-assisted repair PLAN: -Pain medication has been adjusted further. Toradol added. Berwind as been switched over to 7.5 every 6 hours as needed. -Continue pain control -Continue to monitor for urinary retention. Maxwell catheter is to be removed today. -Continue abdominal binder -Encouraged patient to use incentive spirometer -Encouraged patient to ambulate -Encouraged patient to use the ice packs -Possible discharge tomorrow -Check routine labs today -DVT prophylaxis Lovenox and GI prophylaxis Protonix Physician Health And Safety Manager note has been reviewed by physician. Signing provider agrees with the documented findings, assessment, and plan of care. Objective - Vital Signs Vital signs: Vital Signs Temp 98.0 F 02/03/22 08:00 Pulse 76 02/03/22 08:00 Resp 16 02/03/22 08:00 BP 152/74 02/03/22 08:00 Pulse Ox 95 02/03/22 08:00 Intake & Output 02/02/22 02/03/22 02/03/22 18:59 06:59 18:59 Output Total 700 650 Balance -700 -650 Weight 52.4 kg Output: Urine 700 650 Straight 700 Other: Voiding Method Indwelling Catheter Indwelling Catheter - Labs CBC & Chem 7: 02/01/22 09:11
[2022-02-03] MEDS: HYDROcodone/APAP 7.5-325MG 1 EACH TAB PO PRN ×2 (14:19→23:00)
[2022-02-03 15:40] LABS: Basophils % (A) 1 %; Eosinophils # (A) 0.2 k/uL (0-0.7); Eosinophils % (A) 2 %; HCT 45.2 % (34.0-46.0); HGB 14.6 gm/dL (11.4-16.0); Lymphocytes # (A) 2.2 k/uL (1.0-4.8); Lymphocytes % (A) 27 %; MCH 32.8 pg (25.0-35.0); MCHC 32.3 g/dL (31.0-37.0); MCV 101.5 fL (80.0-100.0); Macrocytosis Slight; Mean Platelet Volume 7.4; Monocytes # (A) 0.4 k/uL (0-1.0); Monocytes % (A) 5 %; Neutrophils # (A) 5.3 k/uL (1.3-7.7); Neutrophils % (A) 64 %; Platelet Count 275 k/uL (150-450); RBC 4.46 m/uL (3.80-5.40); RDW 13.3 % (11.5-15.5); WBC 8.2 k/uL (3.8-10.6)
[2022-02-03 15:52] LABS: African American GFR (CKD) >90 (>60 ml/min/1.73 sqM); Anion Gap 4 mmol/L; Blood Urea Nitrogen 11 mg/dL (7-17); Calcium 9.1 mg/dL (8.4-10.2); Carbon Dioxide 33 mmol/L (22-30); Chloride 98 mmol/L (98-107); Glucose 102 mg/dL (74-99); Non-African American GFR(CKD) >90 (>60 ml/min/1.73 sqM); Potassium 3.9 mmol/L (3.5-5.1); Sodium 135 mmol/L (137-145)
[2022-02-03] MEDS: ONDANSETRON 4 MG/2 ML VIAL IVP PRN ×2 (18:03→23:04)
[2022-02-04] MEDS: HYDROmorphone 1 MG/ML 1 ML SYRINGE IVP PRN (02:30)
[2022-02-04] MEDS: KETOROLAC 15 MG/ML 1 ML VIAL IVP SCH ×2 (05:38→11:22)
[2022-02-04] MEDS: LACTATED RINGERS 1,000 ML IV SCH ×2 (05:39→08:35)
[2022-02-04 08:43] VITALS: BP 105/68; PULSE 74; RESP 16; TEMP 98.8
[2022-02-04] MEDS: ONDANSETRON 4 MG/2 ML VIAL IVP PRN ×2 (08:46→14:25)
[2022-02-04] MEDS: ENOXAPARIN 40 MG/0.4 ML SYRINGE SQ SCH (08:49)
[2022-02-04] MEDS: LOSARTAN 50 MG TAB PO SCH (08:49)
[2022-02-04] MEDS: HYDROcodone/APAP 7.5-325MG 1 EACH TAB PO PRN ×2 (08:49→14:25)
[2022-02-04] MEDS: TAMSULOSIN 0.4 MG CAP.ER.24H PO SCH (08:49)
[2022-02-04] MEDS: PANTOPRAZOLE 40 MG/10 ML VIAL IVP SCH (08:50)
--- NOTE | 2022-02-04 12:25 | P.DS ---
Providers Date of admission: 02/02/22 05:01 Expected date of discharge: 02/04/22 Attending physician: Antonio Schmidt Consults: 02/01/22 16:06 Consult Physician Stat Consulting Provider: Jermaine Reyna Reason/Comments: MED MANAGEMENT Do you want consulting provider notified?: Yes Primary care physician: [facility] Course: Patient was admitted after elective repair laparoscopic incisional hernia 3 days ago. Patient doing well today. Pain is well-controlled. She would like to go home. She is tolerating diet. No further nausea or vomiting. Incisions are clean and dry. Minimal tenderness on exam. Will plan discharge with pain medications and antiemetics. Follow-up one week. Plan - Discharge Summary Discharge Rx Participant: Yes New Discharge Prescriptions: New Ibuprofen [Motrin] 600 mg PO Q6HR PRN #40 tab PRN Reason: Pain Ondansetron Odt [Zofran Odt] 4 mg PO Q8HR PRN #9 tab PRN Reason: Nausea Docusate [Colace] 100 mg PO BID #20 capsule oxyCODONE HCL [OxyIR] 5 mg PO Q6H PRN 3 Days #10 tab PRN Reason: Pain Acetaminophen Tab [Tylenol] 650 mg PO Q6H #30 tab No Action Clopidogrel Bisulfate [Plavix] 75 mg PO DAILY Nitroglycerin Sl Tabs [Nitrostat] 0.4 mg SUBLINGUAL Q5M PRN PRN Reason: Chest Pain Losartan Potassium 100 mg PO DAILY Pantoprazole [Protonix] 40 mg PO DAILY Ergocalciferol [Vitamin D2 (1250 Mcg = 28776 Iu)] 1,250 mcg PO WEEKLY Acetaminophen [Tylenol Extra Strength] 500 mg PO Q6H PRN PRN Reason: Pain Discharge Medication List Clopidogrel Bisulfate [Plavix] 75 mg PO DAILY 06/17/20 [History] Nitroglycerin Sl Tabs [Nitrostat] 0.4 mg SUBLINGUAL Q5M PRN 02/03/21 [History] Losartan Potassium 100 mg PO DAILY 02/22/21 [History] Acetaminophen [Tylenol Extra Strength] 500 mg PO Q6H PRN 01/31/22 [History] Ergocalciferol [Vitamin D2 (1250 Mcg = 73152 Iu)] 1,250 mcg PO WEEKLY 01/31/22 [History] Pantoprazole [Protonix] 40 mg PO DAILY 01/31/22 [History] Acetaminophen Tab [Tylenol] 650 mg PO Q6H #30 tab 02/01/22 [Rx] Docusate [Colace] 100 mg PO BID #20 capsule 02/01/22 [Rx] Ibuprofen [Motrin] 600 mg PO Q6HR PRN #40 tab 02/01/22 [Rx] oxyCODONE HCL [OxyIR] 5 mg PO Q6H PRN 3 Days #10 tab 02/01/22 [Rx] Ondansetron Odt [Zofran Odt] 4 mg PO Q8HR PRN #9 tab 02/03/22 [Rx] Follow up Appointment(s)/Referral(s): Antonio Schmidt MD [STAFF PHYSICIAN] - 02/10/22 11:10 am Patient Instructions/Handouts: *[facility] - Managing Your Pain After Surgery Without Opioids, *[facility] - (Anesthesia) Discharge Instructions Outpatient Surgery, Laparoscopic Herniorrhaphy (DC), Ventral Hernia (DC)
--- NOTE | 2022-02-04 15:11 | PN ---
PROGRESS NOTE DATE OF SERVICE: 02/04/2022 DATE OF SERVICE: This 61-year-old woman who was admitted after incisional hernia also had hypertension. No chest pain. No palpitations. No fever. PHYSICAL EXAMINATION: Pulse is 74, blood pressure 105/60. Respirations 16. Cardiovascular: S1, S2 normal. Abdomen: Soft. Status post surgery. Nervous system: No focal deficits. LABS: Sodium 135. Other labs noted. ASSESSMENT: 1. Status post incisional hernia repair. 2. Hypertension. 3. Gastroesophageal reflux disease. 4. Hypercalcemia. 5. History of cerebrovascular accident/transient ischemic attack. RECOMMENDATIONS AND DISCUSSION: Recommend to continue current medications. Resume the home medication. Monitor blood pressure closely. Follow with primary physician, Dr. Reyna after discharge. Rest of the recommendations per surgery. Further recommendations to follow. Incentive spirometry. MMODL / IJN: [id number] / [email or web address]
[2022-02-09] MEDS ORDERED: ERGOCALCIFEROL 1,250 MCG (50,000 IU) CAPSULE PO SCH (09:00)
== END 2022-02-04 15:07 | disposition home or self-care (01) ==
LOC: OR 08:19 → 4SSUR 12:04 → OR 02-02 04:53 → 4SSUR 02-02 05:01
PROVIDERS: ADMIT Surgery; ATTEND Surgery
DX: K43.2 Incisional hernia without obstruction or gangrene (principal); G89.18 Other acute postprocedural pain; N99.89 Other postprocedural complications and disorders of genitourinary system; I10 Essential (primary) hypertension; K21.9 Gastro-esophageal reflux disease without esophagitis; E78.5 Hyperlipidemia, unspecified; K58.9 Irritable bowel syndrome, unspecified; M19.90 Unspecified osteoarthritis, unspecified site; F41.9 Anxiety disorder, unspecified; F31.9 Bipolar disorder, unspecified; K62.3 Rectal prolapse; M51.26 Other intervertebral disc displacement, lumbar region; F17.200 Nicotine dependence, unspecified, uncomplicated; Z79.02 Long term (current) use of antithrombotics/antiplatelets; Z79.899 Other long term (current) drug therapy; Z88.2 Allergy status to sulfonamides; Z88.8 Allergy status to other drugs, medicaments and biological substances; Z87.19 Personal history of other diseases of the digestive system; Z86.73 Personal history of transient ischemic attack (TIA), and cerebral infarction without residual deficits; Z86.14 Personal history of Methicillin resistant Staphylococcus aureus infection; Z85.048 Personal history of other malignant neoplasm of rectum, rectosigmoid junction, and anus; Z86.19 Personal history of other infectious and parasitic diseases; Z90.49 Acquired absence of other specified parts of digestive tract; Z90.710 Acquired absence of both cervix and uterus; Z98.891 History of uterine scar from previous surgery; Z98.49 Cataract extraction status, unspecified eye; Z98.890 Other specified postprocedural states; Z82.49 Family history of ischemic heart disease and other diseases of the circulatory system
CPT/HCPCS: 49654; S2900; 64999; 80048; 85025

== ENCOUNTER 2022-02-10 11:51 | Emergency (ER) | payer BC ==
[2022-02-10 11:56] VITALS: RESP 18; TEMP 98.2
[2022-02-10] MEDS ORDERED: ONDANSETRON 4 MG/2 ML VIAL IVP STA (13:23)
[2022-02-10] MEDS ORDERED: HYDROmorphone 0.5 MG/0.5 ML SYRINGE IVP STA (13:23)
--- NOTE | 2022-02-10 13:42 | ED ---
Abdominal Pain HPI - General Chief Complaint: Abdominal Pain Stated Complaint: Post Op Complications/Abd Pain Time Seen by Provider: 02/10/22 13:11 Source: patient, RN notes reviewed Mode of arrival: wheelchair Limitations: no limitations - History of Present Illness Initial Comments: This is a 61-year-old female who presents to the emergency department with lower abdominal pain. She had an incisional hernia repair on 02/[address] Mathis. Four days ago, she finished the oxycodone. She has been trying to manage her pain with ibuprofen, but has been unable to. States that she cannot sleep at night and is overall very uncomfortable. Patient very tearful on initial examination. She also notes sharp, stinging pain in the right lower quadrant, which is exacerbated when she presses on her pubic bone. States that she wonders if this may be nerve pain. She has a follow up appointment with Dr. Mathis in 5 days. Her PCP suggested she get a short term prescription for Bridgeview to help her until she can see Dr. Mathis. She has mild nausea but denies any fevers, chills, vomiting, diarrhea, or constipation. MD Complaint: abdominal pain Associated Symptoms: nausea - Related Data Home Medications Medication Instructions Recorded Confirmed Clopidogrel Bisulfate [Plavix] 75 mg PO DAILY 06/17/20 02/10/22 Nitroglycerin Sl Tabs [Nitrostat] 0.4 mg SL Q5M PRN 02/03/21 02/10/22 Losartan Potassium 100 mg PO DAILY 02/22/21 02/10/22 Ergocalciferol [Vitamin D2 (1250 1,250 mcg PO FR 01/31/22 02/10/22 Mcg = 38012 Iu)] Pantoprazole [Protonix] 40 mg PO DAILY 01/31/22 02/10/22 Acetaminophen Tab [Tylenol] 650 mg PO Q6H PRN 02/10/22 02/10/22 Ibuprofen [Motrin] 600 mg PO Q6H PRN 02/10/22 02/10/22 Ondansetron Odt [Zofran Odt] 4 mg PO Q8H PRN 02/10/22 02/10/22 Previous Rx's Medication Instructions Recorded Docusate [Colace] 100 mg PO BID #20 capsule 02/01/22 HYDROcodone/APAP 5-325MG [Bridgeview 1 tab PO Q4HR PRN 3 Days #18 tab 02/10/22 5-325] Ondansetron Odt [Zofran Odt] 4 mg PO Q8HR PRN #15 tab 02/10/22 Allergies Allergy/AdvReac Type Severity Reaction Status Date / Time Sulfa (Sulfonamide Allergy Rash/Hives Verified 02/10/22 15:59 Antibiotics) sumatriptan [From Imitrex] Allergy Chest Pain Verified 02/10/22 15:59 sumatriptan succinate Allergy Chest Pain Verified 02/10/22 15:59 [From Imitrex] Review of Systems ROS Statement: Those systems with pertinent positive or pertinent negative responses have been documented in the HPI. ROS Other: All systems not noted in ROS Statement are negative. Constitutional: Denies: fever, chills ENT: Denies: ear pain, throat pain Respiratory: Denies: cough, dyspnea Cardiovascular: Denies: chest pain, palpitations Gastrointestinal: Reports: abdominal pain, nausea. Denies: vomiting, diarrhea, constipation Genitourinary: Denies: urgency, dysuria Musculoskeletal: Denies: back pain Skin: Denies: rash Neurological: Denies: headache Past Medical History Past Medical History: Cancer, CVA/TIA, GERD/Reflux, Hyperlipidemia, Hypertension, Osteoarthritis (OA) Additional Past Medical History / Comment(s): CROHNS, IBS, BULGING LUMBAR DISCS, rectal prolapse, anal cancer, vaginal prolapse, shingles, TIA 3 years ago-no residual effects, new mole in vag. area-sees [facility] next week History of Any Multi-Drug Resistant Organisms: MRSA Date of last positivie culture/infection: 1997 MDRO Source:: Head Past Surgical History: Appendectomy, Bowel Resection, Section, Cholecystectomy, Hysterectomy Additional Past Surgical History / Comment(s): anal surg. to remove cancer, cataracts removed Past Anesthesia/Blood Transfusion Reactions: No Reported Reaction Past Psychological History: Anxiety, Bipolar, Depression Smoking Status: Current every day smoker Past Alcohol Use History: None Reported Past Drug Use History: Marijuana - Past Family History Mother Family Medical History: Hypertension General Exam Limitations: no limitations General appearance: alert, in distress Head exam: Present: atraumatic, normocephalic, normal inspection Respiratory exam: Present: normal lung sounds bilaterally. Absent: respiratory distress, wheezes, rales, rhonchi, stridor Cardiovascular Exam: Present: regular rate, normal rhythm, normal heart sounds. Absent: systolic murmur, diastolic murmur, rubs, gallop, clicks GI/Abdominal exam: Present: soft, tenderness (diffuse tenderness across the lower abdomen), guarding, normal bowel sounds. Absent: organomegaly, mass Neurological exam: Present: alert, oriented X3, CN II-XII intact Psychiatric exam: Present: normal affect, normal mood Skin exam: Present: other (3 well healing incisions on the left side of the abdomen with no evidence of erythema, heat, or drainage.) Course Vital Signs 02/10/22 02/10/22 02/10/22 11:52 16:06 17:20 Temperature 98.2 F Pulse Rate 87 61 72 Respiratory 18 18 18 Rate Blood Pressure 183/97 156/87 148/82 O2 Sat by Pulse 99 99 99 Oximetry Medical Decision Making - Medical Decision Making This is a 61-year-old female who presents to the emergency department with lower abdominal pain following an incisional hernia repair. CT of the abdomen and pelvis revealed postoperative inflammation, but no other acute irregularities. Lab work was unremarkable. Dr. Pal contacted Dr. Mathis on my behalf, and he did not advise any antibiotics. Discussed with the patient that I will provided her with a 3 day course of Bridgeview, however she needs to use this sparingly, and if she needs any more pain medication, she must discuss this with her primary care provider or Dr. Mathis. She is also instructed to avoid driving or operating any machinery when taking the Bridgeview. Refill of Zofran provided as well. Return precautions reviewed in depth, the patient is instructed to return to the emergency department if symptoms worsen including but not limited to, worsening abdominal pain, fevers/chills, erythema around the incisions, or drainage from the incisions. Patient verbalized understanding. This case was discussed in detail with the attending ED physician. Presentation, findings, and treatment plan discussed in detail as well. - Lab Data Result diagrams: 02/10/22 13:44 02/10/22 13:44 Lab Results 02/10/22 02/10/22 02/10/22 Range/Units 13:44 13:44 13:44 WBC 9.3 (3.8-10.6) k/uL RBC 4.30 (3.80-5.40) m/uL Hgb 14.1 (11.4-16.0) gm/dL Hct 43.0 (34.0-46.0) % MCV 100.0 (80.0-100.0) fL MCH 32.9 (25.0-35.0) pg MCHC 32.8 (31.0-37.0) g/dL RDW 13.3 (11.5-15.5) % Plt Count 366 (150-450) k/uL MPV 7.3 Neutrophils % 59 % Lymphocytes % 31 % Monocytes % 4 % Eosinophils % 3 % Basophils % 1 % Neutrophils # 5.5 (1.3-7.7) k/uL Lymphocytes # 2.9 (1.0-4.8) k/uL Monocytes # 0.4 (0-1.0) k/uL Eosinophils # 0.3 (0-0.7) k/uL Basophils # 0.1 (0-0.2) k/uL Sodium 138 (137-145) mmol/L Potassium 4.2 (3.5-5.1) mmol/L Chloride 106 (98-107) mmol/L Carbon Dioxide 26 (22-30) mmol/L Anion Gap 6 mmol/L BUN 13 (7-17) mg/dL Creatinine 0.62 (0.52-1.04) mg/dL Est GFR (CKD-EPI)AfAm >90 (>60 ml/min/1.73 sqM) Est GFR (CKD-EPI)NonAf >90 (>60 ml/min/1.73 sqM) Glucose 98 (74-99) mg/dL Plasma Lactic Acid Alex (0.7-2.0) mmol/L Calcium 9.1 (8.4-10.2) mg/dL Total Bilirubin 0.5 (0.2-1.3) mg/dL AST 19 (14-36) U/L ALT 12 (4-34) U/L Alkaline Phosphatase 53 (38-126) U/L Total Protein 7.4 (6.3-8.2) g/dL Albumin 4.5 (3.5-5.0) g/dL Urine Color Yellow Urine Appearance Clear (Clear) Urine pH 6.5 (5.0-8.0) Ur Specific Rhodes 1.013 (1.001-1.035) Urine Protein Negative (Negative) Urine Glucose (UA) Negative (Negative) Urine Ketones Negative (Negative) Urine Blood Negative (Negative) Urine Nitrite Negative (Negative) Urine Bilirubin Negative (Negative) Urine Urobilinogen <2.0 (<2.0) mg/dL Ur Leukocyte Esterase Negative (Negative) 02/10/22 Range/Units 13:44 WBC (3.8-10.6) k/uL RBC (3.80-5.40) m/uL Hgb (11.4-16.0) gm/dL Hct (34.0-46.0) % MCV (80.0-100.0) fL MCH (25.0-35.0) pg MCHC (31.0-37.0) g/dL RDW (11.5-15.5) % Plt Count (150-450) k/uL MPV Neutrophils % % Lymphocytes % % Monocytes % % Eosinophils % % Basophils % % Neutrophils # (1.3-7.7) k/uL Lymphocytes # (1.0-4.8) k/uL Monocytes # (0-1.0) k/uL Eosinophils # (0-0.7) k/uL Basophils # (0-0.2) k/uL Sodium (137-145) mmol/L Potassium (3.5-5.1) mmol/L Chloride (98-107) mmol/L Carbon Dioxide (22-30) mmol/L Anion Gap mmol/L BUN (7-17) mg/dL Creatinine (0.52-1.04) mg/dL Est GFR (CKD-EPI)AfAm (>60 ml/min/1.73 sqM) Est GFR (CKD-EPI)NonAf (>60 ml/min/1.73 sqM) Glucose (74-99) mg/dL Plasma Lactic Acid Alex 0.6 L (0.7-2.0) mmol/L Calcium (8.4-10.2) mg/dL Total Bilirubin (0.2-1.3) mg/dL AST (14-36) U/L ALT (4-34) U/L Alkaline Phosphatase (38-126) U/L Total Protein (6.3-8.2) g/dL Albumin (3.5-5.0) g/dL Urine Color Urine Appearance (Clear) Urine pH (5.0-8.0) Ur Specific Rhodes (1.001-1.035) Urine Protein (Negative) Urine Glucose (UA) (Negative) Urine Ketones (Negative) Urine Blood (Negative) Urine Nitrite (Negative) Urine Bilirubin (Negative) Urine Urobilinogen (<2.0) mg/dL Ur Leukocyte Esterase (Negative) - Radiology Data Radiology results: report reviewed, image reviewed Disposition Clinical Impression: History of incisional hernia repair Disposition: HOME SELF-CARE Instructions (If sedation given, give patient instructions): Abdominal Pain (ED), Incisional Hernia (DC) Additional Instructions: Return to the emergency department if you develop increasing pain, fevers, chills, redness around the incision sites, or drainage from the incision sites. Follow-up with Dr. mathis as instructed. Avoid driving or operating machinery when taking narcotics. Prescriptions: HYDROcodone/APAP 5-325MG [Bridgeview 5-325] 1 tab PO Q4HR PRN 3 Days #18 tab PRN Reason: Pain Ondansetron Odt [Zofran Odt] 4 mg PO Q8HR PRN #15 tab PRN Reason: Nausea And Vomiting Is patient prescribed a controlled substance at d/c from ED?: Yes If prescribed controlled substance>3 days was MAPS reviewed?: Prescribed <3 Days Referrals: Christina Jones DO [Primary Care Provider] - 1-2 days
[2022-02-10 13:54] LABS: Appearance,Urine Clear (Clear); Bilirubin,Urine Negative (Negative); Blood,Urine Negative (Negative); Color,Urine Yellow; Glucose,Urine (UA) Negative (Negative); Ketones,Urine Negative (Negative); Leukocyte Esterase,Urine Negative (Negative); Nitrite,Urine Negative (Negative); PH, Urine 6.5 (5.0-8.0); Protein,Urine Negative (Negative); Specific Gravity,Urine 1.013 (1.001-1.035); Urobilinogen,Urine <2.0 mg/dL (<2.0)
[2022-02-10 13:57] LABS: Basophils # (A) 0.1 k/uL (0-0.2); Basophils % (A) 1 %; Eosinophils # (A) 0.3 k/uL (0-0.7); Eosinophils % (A) 3 %; HGB 14.1 gm/dL (11.4-16.0); Lymphocytes # (A) 2.9 k/uL (1.0-4.8); Lymphocytes % (A) 31 %; MCH 32.9 pg (25.0-35.0); MCHC 32.8 g/dL (31.0-37.0); Mean Platelet Volume 7.3; Monocytes # (A) 0.4 k/uL (0-1.0); Monocytes % (A) 4 %; Neutrophils # (A) 5.5 k/uL (1.3-7.7); Neutrophils % (A) 59 %; Platelet Count 366 k/uL (150-450); RDW 13.3 % (11.5-15.5); WBC 9.3 k/uL (3.8-10.6)
[2022-02-10 14:04] LABS: ALT 12 U/L (4-34); AST 19 U/L (14-36); African American GFR (CKD) >90 (>60 ml/min/1.73 sqM); Albumin 4.5 g/dL (3.5-5.0); Alkaline Phosphatase 53 U/L (38-126); Anion Gap 6 mmol/L; Blood Urea Nitrogen 13 mg/dL (7-17); Calcium 9.1 mg/dL (8.4-10.2); Carbon Dioxide 26 mmol/L (22-30); Chloride 106 mmol/L (98-107); Glucose 98 mg/dL (74-99); Non-African American GFR(CKD) >90 (>60 ml/min/1.73 sqM); Potassium 4.2 mmol/L (3.5-5.1); Sodium 138 mmol/L (137-145); Total Bilirubin 0.5 mg/dL (0.2-1.3); Total Protein 7.4 g/dL (6.3-8.2)
--- NOTE | 2022-02-10 14:45 | CT ---
EXAMINATION TYPE: CT abdomen pelvis w con DATE OF EXAM: 02/10/2022 COMPARISON: 01/16/2022 HISTORY: 61-year-old female Post-Op complications, abdominal pain, right inguinal hernia repair. TECHNIQUE: Contiguous axial scanning of the abdomen and pelvis following administration of 100 ml Iso zana 300 IV contrast. Delayed images through the kidneys and coronal/sagittal reconstructions perform ed. CT DLP: 579.1 mGycm Automated exposure control for dose reduction was used. FINDINGS: Heart normal size without pericardial effusion. Small fat-containing right-sided Bochdalek hernia. There is some vague increased density right hepatic dome likely area of geographic fatty sparing vers us vascular shunting. No other focal liver lesions seen. Portal venous system is patent. Several 1.1 cm common bile duct likely due to postcholecystectomy status. Right adrenal gland, kidneys, spleen, pancreas within normal limits. 1.2 cm nodule left adrenal gland unchanged, statistically representing benign adrenal adenoma. Moderate atherosclerotic calcifications infrarenal abdominal aorta and common iliac arteries. There m ay be a moderate focal stenosis in the proximal right common iliac artery. No dilated small bowel, free fluid, or free air is seen. Some prominent fluid-filled small bowel loops in the pelvis could represent a mild ileus. Some modele d debris in the terminal ileum could reflect stasis or fiber food bolus and timing correlate clinical ly. Mild circumferential wall thickening cecum. Scattered mild to moderate stool is present. There is a s taple line at the rectosigmoid junction relating to prior resection and reanastomosis.. Bladder. Pelvic phlebolith. No abnormal fluid collection in the pelvis or pelvic lymphadenopathy seen . Interval placement of some mesh along the right inguinal region extending up to the right lower quadr ant. Asymmetric thickening of the rectum right rectus abdominis musculature up to 2.1 cm versus 1.1 cm on the contralateral side. Mild strandy edema superficial to the abdominal wall musculature and some mil d fluid along the superior aspect of the mesh within the intra-abdominal space, refer to sagittal charlie ge 51 and axial image 48. Bones: Mild degenerative change both hips. Facet arthropathy lower lumbar spine. There is a left para central disc herniation at L5-S1. IMPRESSION: 1. INTERVAL PLACEMENT OF MESH IN THE RIGHT INGUINAL REGION AND EXTENDING UP TO THE RIGHT LOWER QUADRA NT. THERE IS MILD SURROUNDING STRANDY EDEMA AND OVERLYING ASYMMETRIC THICKENING OF THE RIGHT RECTUS A BDOMINOUS UP TO 2.1 CM (VERSUS 1.1 CM ON THE LEFT). ADDITIONAL MILD OVERLYING SUBCUTANEOUS EDEMA AND SMALL AMOUNT OF FLUID ALONG THE SUPERIOR MARGIN OF THE MESH. THESE FINDINGS MAY REFLECT POSTSURGICAL INFLAMMATION AND SWELLING. CORRELATE CLINICALLY TO EXCLUDE CELLULITIS. 2. THERE IS SOME NEW MILD CIRCUMFERENTIAL WALL THICKENING OF THE CECUM AND LOWER ASCENDING COLON. COR RELATE FOR NONSPECIFIC COLITIS HERE.
[2022-02-10] MEDS ORDERED: HYDROcodone/APAP 5-325MG 1 EACH TAB PO STA (15:47)
[2022-02-10 17:26] VITALS: BP 148/82; PULSE 72
== END 2022-02-10 17:20 | disposition home or self-care (01) ==
LOC: EC 11:51
DX: Z48.815 Encounter for surgical aftercare following surgery on the digestive system (principal); K21.9 Gastro-esophageal reflux disease without esophagitis; I10 Essential (primary) hypertension; Z79.1 Long term (current) use of non-steroidal anti-inflammatories (NSAID); F17.200 Nicotine dependence, unspecified, uncomplicated; Z86.73 Personal history of transient ischemic attack (TIA), and cerebral infarction without residual deficits; Z88.2 Allergy status to sulfonamides; Z88.9 Allergy status to unspecified drugs, medicaments and biological substances
CPT/HCPCS: 36415; 80053; 83605; 85025; 81003; 74177; 99284; 96374; 96375; J2405; J1170; Q9967

== ENCOUNTER 2022-03-09 14:36 | Emergency (ER) | payer BC ==
[2022-03-09] MEDS ORDERED: HYDROcodone/APAP 5-325MG 1 EACH TAB PO STA (16:01)
[2022-03-09] MEDS ORDERED: KETOROLAC 15 MG/ML 1 ML VIAL IVP STA (16:01)
--- NOTE | 2022-03-09 16:31 | XR ---
EXAMINATION TYPE: XR chest 1V portable DATE OF EXAM: 03/09/2022 4:22 PM COMPARISON:Chest radiographs from 06/04/2014 TECHNIQUE: XR chest 1V portable Frontal view of the chest. CLINICAL INDICATION:Female, 61 years old with history of cough; FINDINGS: Lungs/Pleura: There is no evidence of pleural effusion, focal consolidation, or pneumothorax. Pulmonary vascularity: Unremarkable. Heart/mediastinum: Cardiomediastinal silhouette is unremarkable. Musculoskeletal: No acute osseous pathology. IMPRESSION: No acute cardiopulmonary disease/process.
[2022-03-09 17:00] VITALS: RESP 16
[2022-03-09] MEDS ORDERED: BEBTELOVIMAB (EUA) 175 MG/2 ML VIAL IV ONE (17:45)
--- NOTE | 2022-03-09 17:46 | ED ---
General Adult HPI - General Chief complaint: Shortness of Breath Stated complaint: covid+, increased SOB Time Seen by Provider: 03/09/22 15:40 Source: patient, RN notes reviewed, old records reviewed Mode of arrival: wheelchair - History of Present Illness Initial comments: Patient is a 61-year-old female presents emergency Department seeking monoclonal antibody therapy for in Covid-positive. Has had symptoms since last Sunday. States she attempted to receive monoclonal antibody therapy, however the hospitals out earlier in the week. She is complaining of worsening coughing, upper respiratory symptoms since then. Subjective occasional fevers. Denies nausea, vomiting, diarrhea. Recently had hernia surgery and states that the coughing, is causing some worsening pain at the sites of her hernia. Otherwise has no acute complaints at this time. Patient was vaccinated and boosted for COVID-19. Has no other acute complaints. Was prescribed outpatient steroids, a s well as other therapies to help with Covid. - Related Data Home Medications Medication Instructions Recorded Confirmed Clopidogrel Bisulfate [Plavix] 75 mg PO DAILY 06/17/20 03/09/22 Ergocalciferol [Vitamin D2 (1250 1,250 mcg PO TH 01/31/22 03/09/22 Mcg = 91112 Iu)] Albuterol Sulfate [Albuterol 2 puff PO RT-Q6H PRN 03/09/22 03/09/22 Sulfate Hfa] Azithromycin [Zithromax Z-pack (6 See Taper PO DIRECTED 03/09/22 03/09/22 tabs)] D-Methorphan/PE/Acetaminophen 2 cap PO Q4H PRN 03/09/22 03/09/22 [Mucinex Sinus-Max Steven-Pain Cp] Fluticasone/Umeclidin/Vilanter 1 puff INHALATION RT-DAILY 03/09/22 03/09/22 [Trelegy Ellipta 100-62.5-25] Losartan/Hydrochlorothiazide 1 tab PO DAILY 03/09/22 03/09/22 [Losartan-Hctz 100-12.5 mg Tab] predniSONE See Taper PO DIRECTED 03/09/22 03/09/22 Allergies Allergy/AdvReac Type Severity Reaction Status Date / Time Sulfa (Sulfonamide Allergy Rash/Hives Verified 03/09/22 16:14 Antibiotics) sumatriptan [From Imitrex] Allergy Chest Pain Verified 03/09/22 16:14 sumatriptan succinate Allergy Chest Pain Verified 03/09/22 16:14 [From Imitrex] Review of Systems ROS Statement: Those systems with pertinent positive or pertinent negative responses have been documented in the HPI. Review of Systems: CONST: Denies fever EYES: Denies blurry vision ENT: Endorses nasal congestion C/V: Denies Chest pain RESP: Denies shortness of breath GI: Denies abdominal pain : Denies dysuria SKIN: Denies rash. MSK: Denies joint pain. NEURO: Denies headache ROS Other: All systems not noted in ROS Statement are negative. Past Medical History Past Medical History: Cancer, CVA/TIA, GERD/Reflux, Hyperlipidemia, Hypertension, Osteoarthritis (OA) Additional Past Medical History / Comment(s): CROHNS, IBS, BULGING LUMBAR DISCS, rectal prolapse, anal cancer, vaginal prolapse, shingles, TIA 3 years ago-no residual effects, new mole in vag. area-sees DUST COLLECTOR next week History of Any Multi-Drug Resistant Organisms: MRSA Date of last positivie culture/infection: 1997 MDRO Source:: Head Past Surgical History: Appendectomy, Bowel Resection, Section, Cholecystectomy, Hernia Repair, Hysterectomy Additional Past Surgical History / Comment(s): anal surg. to remove cancer, cataracts removed Past Anesthesia/Blood Transfusion Reactions: No Reported Reaction Past Psychological History: Anxiety, Bipolar, Depression Smoking Status: Current every day smoker Past Alcohol Use History: None Reported Past Drug Use History: Marijuana - Past Family History Mother Family Medical History: Hypertension General Exam - General Exam Comments Initial Comments: General: Appears in no acute distress. HEAD: Normal with no signs of head trauma. EYES: PERRLA, EOMI, conjunctiva normal, no discharge. ENT: Hearing grossly intact, normal oropharynx. RESPIRATORY: Clear breath sounds bilaterally without any obvious wheezes, rhonchi. No increased work of breathing. No hypoxia. C/V: Regular rate and rhythm. S1 and S2 auscultated, no edema, peripheral pulses 2+ and intact throughout ABD: Abd is soft, nontender, nondistended EXT: Normal range of motion, no obvious deformity SKIN: No rashes or lesions observed on exposed skin. Healing surgical incision. Does not appear infected. NEURO: Alert and oriented 4. Course Vital Signs 04/03/09/22 03/09/22 14:37 16:59 19:04 Temperature 98.2 F 97.8 F Pulse Rate 89 66 67 Respiratory 18 16 16 Rate Blood Pressure 185/107 170/91 167/99 O2 Sat by Pulse 98 99 98 Oximetry Medical Decision Making - Medical Decision Making Based on the patient's presentation and physical exam, I do believe she is likely experiencing symptoms secondary to her active COVID-19 infection. She is in no respiratory distress. She is not hypoxic. She does meet criteria for medical management by therapy. She did consent. We will repeat testing prior to administration of therapy. We also obtained a chest x-ray. She was in agreement with this plan. Screening EKG was obtained in triage, and showed no signs of acute ischemia. She'll be given analgesia as well. Chest x-ray shows no acute cardio primary process. Patient's COVID-19 positive. Alcohol antibodies were the patient. She consented to treatment. She tolerated the well. Patient will be discharged home at this time. We discussed quarantine. I recommended she continue her medications at home. She was in agreement this plan. I instructed the patient to follow up with their PCP in the next 3 days. I explained that the patient should return to the emergency department if they experience any worsening symptoms. Strict return precautions were discussed with the patient. The patient expressed understanding of these instructions. I answered all questions that the patient had. The patient was discharged home in fair condition with their prescriptions and follow up information. - Lab Data Lab Results 03/09/22 Range/Units 16:18 Coronavirus (PCR) Detected A (Not Detectd) - EKG Data -: EKG Interpreted by Me EKG Comments: 12-lead Electrocardiogram Interpretation Note EKG was reviewed and interpreted by myself. 12-lead ECG performed at 1445 is interpreted by me as revealing normal sinus rhythm at a rate of 73 beats per minute. [place] is normal. NM interval is 145 ms, QRS duration is 80 ms, QTc is 3 89 ms.. There were no ST or T wave abnormalities to suggest myocardial ischemia or injury. R wave progression across the precordium was satisfactory. By my interpretation this EKG is non-diagnostic for acute ischemia. Disposition Clinical Impression: COVID-19 virus infection Disposition: HOME SELF-CARE Condition: Fair Instructions (If sedation given, give patient instructions): COVID-19 (Coronavirus Disease 2019) (ED) Is patient prescribed a controlled substance at d/c from ED?: No Referrals: Jermaine Reyna MD [Primary Care Provider] - 1-2 days Time of Disposition: 17:50
[2022-03-09] MEDS ORDERED: ONDANSETRON ODT 4 MG TAB PO STA (17:54)
[2022-03-09 19:05] VITALS: BP 167/99; PULSE 67; TEMP 97.8
== END 2022-03-09 19:04 | disposition home or self-care (01) ==
LOC: EC 14:36
DX: U07.1 COVID-19 (principal); I10 Essential (primary) hypertension; E78.5 Hyperlipidemia, unspecified; K21.9 Gastro-esophageal reflux disease without esophagitis; M19.90 Unspecified osteoarthritis, unspecified site; F31.9 Bipolar disorder, unspecified; F41.9 Anxiety disorder, unspecified; F17.200 Nicotine dependence, unspecified, uncomplicated; F12.90 Cannabis use, unspecified, uncomplicated; Z79.899 Other long term (current) drug therapy
CPT/HCPCS: 93005; 87635; 71045; 99284; 96374; J1885; Q0222

== ENCOUNTER → 2023-05-16 | Outpatient (CLI) | payer BC ==
--- NOTE | 2023-05-16 11:18 | MR ---
EXAMINATION TYPE: MR brain wo con DATE OF EXAM: 05/16/2023 8:02 AM COMPARISON: 02/03/2021 CT CLINICAL INDICATION:Female, 63 years old with history of R29.898, M62.81;Dizziness, Rt side weakness/ numbness TECHNIQUE: Multi planar, multi sequence imaging was performed through the brain including: T1, T2, In version recovery, Diffusion weighted imaging, and gradient echo imaging. No gadolinium was given. FINDINGS: The alvarez-white junctions, ventricular system, and cisterns appear unremarkable. Scattered foci of hi gh T2 signal intensity are seen within the periventricular white matter. Midline structures show no a bnormality. Diffusion-weighted imaging shows no evidence of restricted diffusion. The susceptibility weighted images do not reveal any evidence for micro-hemorrhage. The bone marrow signal is within normal limits. Paranasal sinuses and mastoid air cells: No significant paranasal sinus disease. Visualized orbits: Bilateral aphakia IMPRESSION: 1. No evidence of intracranial mass or acute/subacute infarct. 2. Nonspecific white matter changes, likely secondary to small vessel ischemic disease.
== END | disposition home or self-care (01) ==
LOC: RADMRIMAIN 07:26
PROVIDERS: ATTEND Family Medicine
DX: M62.81 Muscle weakness (generalized) (principal); R90.82 White matter disease, unspecified; R29.898 Other symptoms and signs involving the musculoskeletal system
CPT/HCPCS: 70551

== ENCOUNTER 2023-07-08 19:59 | Emergency (ER) | payer BC ==
--- NOTE | 2023-07-08 20:48 | ED ---
General Adult HPI - General Chief complaint: Syncope Stated complaint: Syncope Time Seen by Provider: 07/08/23 20:43 Source: patient, EMS Mode of arrival: EMS Limitations: no limitations - History of Present Illness Initial comments: Patient presents to the ED by ambulance for evaluation with her at bedside. Patient states that she bumped her right knee on a table while she was sitting on her chair, causing her pain. Patient states that she then became lightheaded and developed chest pain and dyspnea. Patient's , who was with the patient during this incident, reports that the patient then stood up and fell backwards, losing consciousness briefly. He states the patient became "cold and clammy". Patient states that she also vomited once. Patient states that her right knee pain, chest pain, dyspnea and lightheadedness have resolved. Patient states that she developed mild abdominal pain in the ambulance, but that is improving as well. Patient is on Plavix. Patient denies fever or chills, headache, neck/back/extremity pain, cough or cold symptoms, palpitations, diarrhea or constipation, bloody or melanotic stool, dysur ia/hematuria/urinary frequency/urinary symptoms, or any other symptoms or complaints. - Related Data Home Medications Medication Instructions Recorded Confirmed Clopidogrel Bisulfate [Plavix] 75 mg PO DAILY 06/17/20 03/09/22 Ergocalciferol [Vitamin D2 (1250 1,250 mcg PO TH 01/31/22 03/09/22 Mcg = 41725 Iu)] Albuterol Sulfate [Albuterol 2 puff PO RT-Q6H PRN 03/09/22 03/09/22 Sulfate Hfa] Azithromycin [Zithromax Z-pack (6 See Taper PO DIRECTED 03/09/22 03/09/22 tabs)] D-Methorphan/PE/Acetaminophen 2 cap PO Q4H PRN 03/09/22 03/09/22 [Mucinex Sinus-Max Steven-Pain Cp] Fluticasone/Umeclidin/Vilanter 1 puff INHALATION RT-DAILY 03/09/22 03/09/22 [Trelegy Ellipta 100-62.5-25] Losartan/Hydrochlorothiazide 1 tab PO DAILY 03/09/22 03/09/22 [Losartan-Hctz 100-12.5 mg Tab] predniSONE See Taper PO DIRECTED 03/09/22 03/09/22 Allergies Allergy/AdvReac Type Severity Reaction Status Date / Time Sulfa (Sulfonamide Allergy Rash/Hives Verified 03/09/22 16:14 Antibiotics) sumatriptan [From Imitrex] Allergy Chest Pain Verified 03/09/22 16:14 sumatriptan succinate Allergy Chest Pain Verified 03/09/22 16:14 [From Imitrex] Review of Systems ROS Statement: Those systems with pertinent positive or pertinent negative responses have been documented in the HPI. ROS Other: All systems not noted in ROS Statement are negative. Past Medical History Past Medical History: Cancer, CVA/TIA, GERD/Reflux, Hyperlipidemia, Hypertension, Osteoarthritis (OA) Additional Past Medical History / Comment(s): CROHNS, IBS, BULGING LUMBAR DISCS, rectal prolapse, anal cancer, vaginal prolapse, shingles, TIA 3 years ago-no residual effects, new mole in vag. area-sees FULFILLMENT SPECIALIST next week History of Any Multi-Drug Resistant Organisms: MRSA Date of last positivie culture/infection: 1997 MDRO Source:: Head Past Surgical History: Appendectomy, Bowel Resection, Section, Cholecystectomy, Hernia Repair, Hysterectomy Additional Past Surgical History / Comment(s): anal surg. to remove cancer, cataracts removed Past Anesthesia/Blood Transfusion Reactions: No Reported Reaction Past Psychological History: Anxiety, Bipolar, Depression Smoking Status: Current every day smoker Past Alcohol Use History: None Reported Past Drug Use History: Marijuana - Past Family History Mother Family Medical History: Hypertension General Exam Limitations: no limitations General appearance: alert, in no apparent distress Head exam: Present: atraumatic, normocephalic Eye exam: Present: normal appearance, PERRL, EOMI ENT exam: Present: mucous membranes moist Neck exam: Present: other (Trachea is in midline). Absent: tenderness Respiratory exam: Present: normal lung sounds bilaterally. Absent: respiratory distress, wheezes, rales, rhonchi, stridor, chest wall tenderness Cardiovascular Exam: Present: normal rhythm, bradycardia, normal heart sounds, other (Normal radial pulses bilaterally) GI/Abdominal exam: Present: soft. Absent: distended, tenderness, guarding Extremities exam: Present: full ROM, other (Pelvis is stable and nontender). Absent: tenderness, pedal edema, calf tenderness Back exam: Present: normal inspection. Absent: tenderness Neurological exam: Present: alert, oriented X3, CN II-XII intact. Absent: motor sensory deficit Psychiatric exam: Present: normal affect, normal mood Skin exam: Present: warm, dry, intact, normal color Course Vital Signs 07/08/23 07/08/23 07/09/23 20:00 22:56 00:02 Temperature 97.7 F Pulse Rate 56 L 65 61 Respiratory 18 18 18 Rate Blood Pressure 121/74 146/88 172/88 O2 Sat by Pulse 94 L 97 97 Oximetry - Reevaluation(s) Reevaluation #1: 07/09/23 01:05 Patient remains alert and breathing comfortably. Patient continues to deny feeling dizzy or lightheaded while in the ED. Patient and are aware of the patient's test results, and patient feels comfortable being discharged home with her at this time. She was counseled about syncope, and she was clearly explained return and follow-up instructions. She was instructed to follow up closely with her primary care provider. She feels comfortable with this plan. EKG Findings - EKG Comments: EKG Findings:: ED physician interpretation (interpreted by me): Sinus bradycardia, no ectopy, ventricular rate of 54 bpm, normal UT and QRS intervals, normal QT interval, normal axis, no ST or T-wave abnormality Medical Decision Making - Medical Decision Making Was pt. sent in by a medical professional or institution ([facility] Amin, TAPE RECORDER MECHANIC, urgent care, hospital, or detention...) When possible be specific @ -[No] Did you speak to anyone other than the patient for history (EMS, parent, family, police, friend...)? What history was obtained from this source @ -[Patient's has also provided history.] Did you review nursing and triage notes (agree or disagree)? Why? @ -[I reviewed and agree with nursing and triage notes] Were old charts reviewed (outside hosp., previous admission, EMS record, old EKG, old radiological studies, urgent care reports/EKG's, detention records)? Report findings @ -[No old charts were reviewed] Differential Diagnosis (chest pain, altered mental status, abdominal pain women, abdominal pain men, vaginal bleeding, weakness, fever, dyspnea, syncope, headache, dizziness, GI bleed, back pain, seizure, CVA, palpatations, mental health, musculoskeletal)? @ -[Differential Syncope: Valvular disease, hypertrophic cardiomyopathy, tamponade, tachycardia, bradycardia, dysrhythmia, OK, hypovolemia, hemorrhage, anemia, intracranial hemorrhage, seizure, hypoglycemia, this is not meant to be an all-inclusive list.] EKG interpreted by me (3pts min.). @ -[As above] X-rays interpreted by me (1pt min.). @ -[Chest x-ray was reviewed myself and shows no acute abnormality. I agree with the radiologist's interpretation as above.] CT interpreted by me (1pt min.). @ -[Noncontrast CT head/cervical spine was reviewed myself and shows no acute intracranial abnormality or cervical fracture. I agree with the radiologist's interpretation as above.] U/S interpreted by me (1pt. min.). @ -[None done] What testing was considered but not performed or refused? (CT, X-rays, U/S, labs)? Why? @ -[None] What meds were considered but not given or refused? Why? @ -[None] Did you discuss the management of the patient with other professionals (professionals i.e. , PA, TAPE RECORDER MECHANIC, lab, RT, psych nurse, foster care social worker, flyer builder, teacher, founder and chief executive officer, counter caser)? Give summary @ -[No] Was smoking cessation discussed for >3mins.? @ -[No] Was critical care preformed (if so, how long)? @ -[No] Were there social determinants of health that impacted care today? How? (Homelessness, low income, unemployed, alcoholism, drug addiction, transportation, low edu. Level, literacy, decrease access to med. care, alf, rehab)? @ -[No] Was there de-escalation of care discussed even if they declined (Discuss DNR or withdrawal of care, Hospice)? DNR status @ -[No] What co-morbidities impacted this encounter? (DM, HTN, Smoking, COPD, CAD, Cancer, CVA, ARF, Chemo, Hep., AIDS, mental health diagnosis, sleep apnea, morbid obesity)? @ -[None] Was patient admitted / discharged? Hospital course, mention meds given and route, prescriptions, significant lab abnormalities, going to OR and other pertinent info. @ -[Patient reports becoming lightheaded and having a syncopal episode immediately after bumping her right knee and experiencing pain. This history is suggestive of a vasovagal etiology of her syncope. Patient has had 2 negative troponins drawn over 2 hours apart while in the ED. Other than borderline sinus bradycardia, the patient's EKG is fairly unremarkable. Patient's chest x-ray and CTs are negative. Patient's labs are fairly unremarkable. Patient has not been hypotensive while in the ED. I do not suspect an emergent medical condi tion at this time. Will discharge patient home with her at this time. Patient feels comfortable with this plan.] Undiagnosed new problem with uncertain prognosis? @ -[No] Drug Therapy requiring intensive monitoring for toxicity (Heparin, Nitro, Insulin, Cardizem)? @ -[No] Were any procedures done? @ -[No] Diagnosis/symptom? @ -[Syncope] Acute, or Chronic, or Acute on Chronic? @ -[Acute] Uncomplicated (without systemic symptoms) or Complicated (systemic symptoms)? @ -[default] Side effects of treatment? @ -[No] Exacerbation, Progression, or Severe Exacerbation? @ -[No] Poses a threat to life or bodily function? How? (Chest pain, [place], OK, pneumonia, PE, COPD, DKA, ARF, appy, cholecystitis, CVA, Diverticulitis, Homicidal, Suicidal, threat to staff... and all critical care pts) @ -[No] - Lab Data Result diagrams: 07/08/23 21:04 07/08/23 21:04 Lab Results 07/08/23 07/08/23 07/08/23 Range/Units 21:04 21:04 21:04 WBC 10.5 (3.8-10.6) k/uL RBC 4.23 (3.80-5.40) m/uL Hgb 13.5 (11.4-16.0) gm/dL Hct 40.7 (34.0-46.0) % MCV 96.3 (80.0-100.0) fL MCH 31.8 (25.0-35.0) pg MCHC 33.1 (31.0-37.0) g/dL RDW 13.4 (11.5-15.5) % Plt Count 283 (150-450) k/uL MPV 7.8 Neutrophils % 55 % Lymphocytes % 38 % Monocytes % 4 % Eosinophils % 2 % Basophils % 0 % Neutrophils # 5.8 (1.3-7.7) k/uL Lymphocytes # 4.0 (1.0-4.8) k/uL Monocytes # 0.4 (0-1.0) k/uL Eosinophils # 0.2 (0-0.7) k/uL Basophils # 0.0 (0-0.2) k/uL PT 9.9 (9.0-12.0) sec INR 0.9 (<1.2) APTT 21.9 L (22.0-30.0) sec Sodium 137 (137-145) mmol/L Potassium 3.5 (3.5-5.1) mmol/L Chloride 104 (98-107) mmol/L Carbon Dioxide 23 (22-30) mmol/L Anion Gap 10 mmol/L BUN 10 (7-17) mg/dL Creatinine 0.62 (0.52-1.04) mg/dL Est GFR (CKD-EPI)AfAm >90 (>60 ml/min/1.73 sqM) Est GFR (CKD-EPI)NonAf >90 (>60 ml/min/1.73 sqM) Glucose 86 (74-99) mg/dL Calcium 9.3 (8.4-10.2) mg/dL Magnesium 1.8 (1.6-2.3) mg/dL Total Bilirubin 0.6 (0.2-1.3) mg/dL AST 30 (14-36) U/L ALT 14 (4-34) U/L Alkaline Phosphatase 49 (38-126) U/L Troponin I (0.000-0.034) ng/mL Total Protein 7.8 (6.3-8.2) g/dL Albumin 4.4 (3.5-5.0) g/dL 07/08/23 07/09/23 Range/Units 21:04 00:02 WBC (3.8-10.6) k/uL RBC (3.80-5.40) m/uL Hgb (11.4-16.0) gm/dL Hct (34.0-46.0) % MCV (80.0-100.0) fL MCH (25.0-35.0) pg MCHC (31.0-37.0) g/dL RDW (11.5-15.5) % Plt Count (150-450) k/uL MPV Neutrophils % % Lymphocytes % % Monocytes % % Eosinophils % % Basophils % % Neutrophils # (1.3-7.7) k/uL Lymphocytes # (1.0-4.8) k/uL Monocytes # (0-1.0) k/uL Eosinophils # (0-0.7) k/uL Basophils # (0-0.2) k/uL PT (9.0-12.0) sec INR (<1.2) APTT (22.0-30.0) sec Sodium (137-145) mmol/L Potassium (3.5-5.1) mmol/L Chloride (98-107) mmol/L Carbon Dioxide (22-30) mmol/L Anion Gap mmol/L BUN (7-17) mg/dL Creatinine (0.52-1.04) mg/dL Est GFR (CKD-EPI)AfAm (>60 ml/min/1.73 sqM) Est GFR (CKD-EPI)NonAf (>60 ml/min/1.73 sqM) Glucose (74-99) mg/dL Calcium (8.4-10.2) mg/dL Magnesium (1.6-2.3) mg/dL Total Bilirubin (0.2-1.3) mg/dL AST (14-36) U/L ALT (4-34) U/L Alkaline Phosphatase (38-126) U/L Troponin I <0.012 <0.012 (0.000-0.034) ng/mL Total Protein (6.3-8.2) g/dL Albumin (3.5-5.0) g/dL - Radiology Data Chest x-ray: No acute cardiopulmonary disease/process. Noncontrast CT head/cervical spine: 1. No acute intracranial process. 2. No evidence of cervical spine fracture. 3. Mild multilevel degenerative disc disease. Disposition Clinical Impression: Syncope Disposition: HOME SELF-CARE Condition: Stable Instructions (If sedation given, give patient instructions): Syncope (ED) Additional Instructions: Return to the ER immediately should you develop any significant pain, feeling dizzy or passing out, shortness of breath, vomiting, a fever, or new or wo rsening symptoms. Follow up closely with your primary care provider. Is patient prescribed a controlled substance at d/c from ED?: No Referrals: Jermaine Reyna MD [Primary Care Provider] - 1-2 days Time of Disposition: 01:07
[2023-07-08 20:55] VITALS: RESP 18
[2023-07-08 20:56] VITALS: TEMP 97.7
[2023-07-08] MEDS ORDERED: SODIUM CHLORIDE 0.9% 500 ML 500 ML IV STA (21:02)
[2023-07-08 21:32] LABS: AST 30 U/L (14-36); African American GFR (CKD) >90 (>60 ml/min/1.73 sqM); Albumin 4.4 g/dL (3.5-5.0); Blood Urea Nitrogen 10 mg/dL (7-17); Calcium 9.3 mg/dL (8.4-10.2); Carbon Dioxide 23 mmol/L (22-30); Chloride 104 mmol/L (98-107); Glucose 86 mg/dL (74-99); Magnesium 1.8 mg/dL (1.6-2.3); Non-African American GFR(CKD) >90 (>60 ml/min/1.73 sqM); Total Bilirubin 0.6 mg/dL (0.2-1.3); Total Protein 7.8 g/dL (6.3-8.2)
--- NOTE | 2023-07-08 21:35 | XR ---
EXAMINATION TYPE: XR chest 1V portable DATE OF EXAM: 07/08/2023 9:23 PM COMPARISON: Chest radiographs from 03/09/2022 TECHNIQUE: XR chest 1V portable Frontal view of the chest. CLINICAL INDICATION:Female, 63 years old with history of syncope; FINDINGS: Lungs/Pleura: There is no evidence of pleural effusion, focal consolidation, or pneumothorax. Pulmonary vascularity: Unremarkable. Heart/mediastinum: Cardiomediastinal silhouette is unremarkable. Musculoskeletal: No acute osseous pathology. IMPRESSION: No acute cardiopulmonary disease/process.
[2023-07-08] MEDS ORDERED: MORPHINE SULFATE 2 MG/ML SYRINGE IVP STA ×2 (21:37→22:46)
[2023-07-08 21:38] LABS: Basophils % (A) 0 %; Eosinophils # (A) 0.2 k/uL (0-0.7); Eosinophils % (A) 2 %; HCT 40.7 % (34.0-46.0); HGB 13.5 gm/dL (11.4-16.0); Lymphocytes % (A) 38 %; MCH 31.8 pg (25.0-35.0); MCHC 33.1 g/dL (31.0-37.0); MCV 96.3 fL (80.0-100.0); Mean Platelet Volume 7.8; Monocytes # (A) 0.4 k/uL (0-1.0); Monocytes % (A) 4 %; Neutrophils # (A) 5.8 k/uL (1.3-7.7); Neutrophils % (A) 55 %; Platelet Count 283 k/uL (150-450); RBC 4.23 m/uL (3.80-5.40); RDW 13.4 % (11.5-15.5); WBC 10.5 k/uL (3.8-10.6)
[2023-07-08 21:39] LABS: INR 0.9 (<1.2); Partial Thromboplastin Time 21.9 sec (22.0-30.0); Prothrombin Time 9.9 sec (9.0-12.0)
--- NOTE | 2023-07-08 21:51 | CT ---
EXAMINATION TYPE: CT brain cspine wo con CT DLP: 1257.6 mGycm, Automated exposure control for dose reduction was used. DATE OF EXAM: 07/08/2023 9:35 PM COMPARISON: 02/03/2021 CLINICAL INDICATION:Female, 63 years old with history of syncope; syncope TECHNIQUE: Brain: Multiple axial CT images of the brain were obtained without IV contrast. Cspine: Axial CT images from the skull base to the inferior aspect of T2 we obtained without intraven ous contrast. Coronal and sagittal reformatted images were also reviewed. FINDINGS: Brain: Extra-axial spaces: No abnormal extra-axial fluid collections. Ventricular system: Within normal limits Cerebral parenchyma: No acute intraparenchymal hemorrhage or mass effect. The alvarez-white junction is well differentiated. Cerebellum: Unremarkable. Mass effect: No evidence of midline shift. Intracranial vasculature: unremarkable Soft tissues: Normal. Calvarium/osseous structures: No depressed skull fracture. Paranasal sinuses and mastoid air cells: Clear. Visualized orbits: Bilateral aphakia. Cervical spine: Fracture: None. Osseous structures: Multilevel degenerative disc disease changes with endplate spurring and disc oste ophyte complex's. Vertebral alignment: Within normal limits. Spinal canal/Neural Foramina: No evidence of significant spinal canal narrowing. No evidence for sign ificant neural foraminal stenosis. Neck soft tissues: Prevertebral soft tissues are within normal limits. Other: The airway is patent. The lung apices are clear. IMPRESSION: 1. No acute intracranial process. 2. No evidence of cervical spine fracture. 3. Mild multilevel degenerative disc disease.
[2023-07-08 21:54] LABS: ALT 14 U/L (4-34); Alkaline Phosphatase 49 U/L (38-126); Anion Gap 10 mmol/L; Potassium 3.5 mmol/L (3.5-5.1); Sodium 137 mmol/L (137-145)
[2023-07-09 01:47] VITALS: BP 168/85; PULSE 59
== END 2023-07-09 01:47 | disposition home or self-care (01) ==
LOC: EC 19:59
DX: R55 Syncope and collapse (principal); E78.5 Hyperlipidemia, unspecified; I10 Essential (primary) hypertension; K21.9 Gastro-esophageal reflux disease without esophagitis; M19.90 Unspecified osteoarthritis, unspecified site; Z86.73 Personal history of transient ischemic attack (TIA), and cerebral infarction without residual deficits; F41.9 Anxiety disorder, unspecified; F31.9 Bipolar disorder, unspecified; F17.200 Nicotine dependence, unspecified, uncomplicated; F12.90 Cannabis use, unspecified, uncomplicated; Z88.2 Allergy status to sulfonamides; Z79.51 Long term (current) use of inhaled steroids; Z79.02 Long term (current) use of antithrombotics/antiplatelets; Z79.899 Other long term (current) drug therapy
CPT/HCPCS: 36415; 93005; 80053; 83735; 84484 ×2; 85025; 85610; 85730; 71045; 72125; 70450; 99285; 96374; 96376; J2270

== ENCOUNTER → 2023-07-20 | Outpatient (CLI) | payer BC ==
--- NOTE | 2023-07-21 11:27 | MR ---
EXAMINATION TYPE: MR brain wo con DATE OF EXAM: 07/20/2023 7:36 AM COMPARISON: 05/16/2023. CLINICAL INDICATION:Female, 63 years old with history of S06.0X9A CONCUSSION W LOSS OF CONSCIOUSNESS; Blurred vision, syncope, head trauma after syncopal episode TECHNIQUE: Multi planar, multi sequence imaging was performed through the brain including: T1, T2, In version recovery, Diffusion weighted imaging, and gradient echo imaging. No gadolinium was given. FINDINGS: The alvarez-white junctions, ventricular system, and cisterns appear unremarkable. Scattered foci of hi gh T2 signal intensity are seen within the periventricular white matter. Midline structures show no a bnormality. Diffusion-weighted imaging shows no evidence of restricted diffusion. The susceptibility weighted images do not reveal any evidence for micro-hemorrhage. The bone marrow signal is within normal limits. Paranasal sinuses and mastoid air cells: No significant paranasal sinus disease. Visualized orbits: Bilaterally aphakia. IMPRESSION: 1. No change from prior 05/16/2023. 2. No evidence of intracranial mass or acute/subacute infarct. 3. Nonspecific white matter changes, likely secondary to small vessel ischemic disease. 4.
== END | disposition home or self-care (01) ==
LOC: RADMRIMAIN 06:56
PROVIDERS: ATTEND Family Medicine
DX: S06.0X9A Concussion with loss of consciousness of unspecified duration, initial encounter (principal); H53.8 Other visual disturbances; R90.82 White matter disease, unspecified; M62.81 Muscle weakness (generalized); R29.898 Other symptoms and signs involving the musculoskeletal system; X58.XXXA Exposure to other specified factors, initial encounter
CPT/HCPCS: 70551

== ENCOUNTER 2024-10-14 07:17 | Day surgery (SDC) | payer BC ==
[2024-10-14] MEDS ORDERED: HYDROmorphone 0.5 MG/0.5 ML SYRINGE IVP PRN (07:40)
[2024-10-14] MEDS ORDERED: DEXAMETHASONE SOD PHOSPHATE 4 MG/ML 1 ML VIAL IV ONE (07:40)
[2024-10-14] MEDS: LACTATED RINGERS 1,000 ML IV SCH (08:05)
[2024-10-14] MEDS: ONDANSETRON 4 MG/2 ML VIAL IVP ONE (08:18)
[2024-10-14] MEDS: ACETAMINOPHEN TAB 500 MG TAB PO PRN (08:19)
[2024-10-14] MEDS: IV FLUID CONTINUATION 1,000 ML IV ONE ×2 (08:21→11:19)
[2024-10-14 08:26] LABS: Basophils % (A) 0 %; Eosinophils # (A) 0.1 k/uL (0-0.7); Eosinophils % (A) 1 %; HGB 14.1 gm/dL (11.4-16.0); Lymphocytes # (A) 2.2 k/uL (1.0-4.8); Lymphocytes % (A) 24 %; MCH 30.8 pg (25.0-35.0); MCHC 32.8 g/dL (31.0-37.0); MCV 94.1 fL (80.0-100.0); Monocytes # (A) 0.5 k/uL (0-1.0); Monocytes % (A) 6 %; Neutrophils # (A) 5.9 k/uL (1.3-7.7); Neutrophils % (A) 66 %; Platelet Count 296 k/uL (150-450); RBC 4.57 m/uL (3.80-5.40); RDW 12.8 % (11.5-15.5)
[2024-10-14 08:39] LABS: African American GFR (CKD) >90 (>60 ml/min/1.73 sqM); Anion Gap 11 mmol/L; Blood Urea Nitrogen 8 mg/dL (7-17); Carbon Dioxide 25 mmol/L (22-30); Chloride 106 mmol/L (98-107); Glucose 115 mg/dL (74-99); Non-African American GFR(CKD) >90 (>60 ml/min/1.73 sqM); Potassium 3.5 mmol/L (3.5-5.1); Sodium 142 mmol/L (137-145)
[2024-10-14] MEDS: MIDAZOLAM 2 MG/2 ML VIAL IV ONE (08:49)
[2024-10-14] MEDS: fentaNYL (PF) 50 MCG/ML 2 ML AMP IVP PRN (08:49)
[2024-10-14] MEDS: HEPARIN SODIUM,PORCINE 5,000 UNIT/ML 1 ML VIAL SQ PRN (08:59)
[2024-10-14] MEDS ORDERED: NEOSTIGMINE 1 MG/ML 10 ML VIAL ONE (09:30)
[2024-10-14] MEDS ORDERED: MIDAZOLAM 2 MG/2 ML VIAL ONE (09:30)
[2024-10-14] MEDS ORDERED: ROCURONIUM 10 MG/ML (5 ML VIAL) IV ONE (09:30)
[2024-10-14] MEDS ORDERED: KETOROLAC 15 MG/ML 1 ML VIAL ONE (09:30)
[2024-10-14] MEDS ORDERED: PROPOFOL 10 MG/ML 20 ML VIAL IV ONE (09:30)
[2024-10-14] MEDS ORDERED: SODIUM CHLORIDE 0.9% (PF) 10 ML VIAL ONE (09:30)
[2024-10-14] MEDS ORDERED: GLYCOPYRROLATE 0.2 MG/ML 2 ML VIAL ONE (09:30)
[2024-10-14] MEDS ORDERED: KETAMINE HCL IN 0.9 % NACL 50 MG/5 ML SYRINGE ONE (09:30)
[2024-10-14] MEDS ORDERED: ROPIVACAINE 5 MG/ML 30 ML VIAL ONE (09:30)
[2024-10-14] MEDS ORDERED: fentaNYL (PF) 50 MCG/ML 2 ML AMP ONE (09:30)
[2024-10-14] MEDS ORDERED: LIDOCAINE 1% INJ 10MG/ML (20 ML MDV) ONE (09:30)
[2024-10-14] MEDS: LIDOCAINE 1%-EPI 1:100,000 20 ML VIAL SQ ONE (09:53)
--- NOTE | 2024-10-14 10:24 | P.OP ---
Date of Procedure: 10/14/24 Preoperative Diagnosis: incisional hernia Postoperative Diagnosis: Incisional hernia Procedure(s) Performed: Open repair of incisional hernia Anesthesia: JOHANA Surgeon: Antonio Schmidt Estimated Blood Loss (ml): 5 Pathology: none sent Condition: stable Disposition: PACU Operative Findings: 5 cm incisional hernia located right lower quadrant Description of Procedure: The patient is placed on the operative table in the supine position. She received general endotracheal tube anesthesia. Her abdomen was prepped and draped you sterile fashion. Patient had a mass in the right lower quadrant. She had a previous midline scar. The skin was incised over the mass. There appeared to be a fascial defect. The fascial defect measured approxi-5 cm in diameter. The fascial defect was then closed using interrupted [id number] 0 Ethibond suture. A ANDRES drain was placed over top of the repair. Parker's fascia closed with 2-0 Vicryl suture. Skin was closed interrupted 3-0 Monocryl suture. Dermabond was applied. Patient tolerated well. She was sent to recovery in stable condition.
[2024-10-14 10:43] VITALS: TEMP 97.3
[2024-10-14 12:13] VITALS: BP 148/79; PULSE 71; RESP 14
--- NOTE | 2024-10-14 12:24 | P.ANPRN ---
Procedure Note - Anesthesia - Nerve Block Performed Bilateral Erector Spinae Single Time Out Performed: Yes ([id number]) Date of Procedure: 10/14/24 Procedure Start Time: 08:50 Procedure Stop Time: 08:55 Location of Patient: PreOp Indication: Acute Post-Operative Pain, Requested by Surgeon Specifically requested for management of pain by DrJose M: Antonio Schmidt Sedation Type: Sedate with meaningful contact maintained Preparation: Sterile Prep Position: Sitting Catheter: None Needle Types: Pajunk Needle Gauge: 21 Ultrasound used to visualize needle placement: Yes Ultrasound used to observe medication spread: Yes Injectate: 0.5% Ropivacaine (see comment for volume) (15cc + 10cc nacl pf) Blood Aspirated: No Pain Paresthesia on Injection Noted: No Resistance on Injection: Normal Image Stored and Saved: Yes Events: Uneventful and Well Tolerated
== END 2024-10-14 13:16 | disposition home or self-care (01) ==
LOC: OR 07:17
PROVIDERS: ATTEND Surgery
DX: K43.2 Incisional hernia without obstruction or gangrene (principal); G89.18 Other acute postprocedural pain; I10 Essential (primary) hypertension; E78.5 Hyperlipidemia, unspecified; F31.9 Bipolar disorder, unspecified; F41.9 Anxiety disorder, unspecified; K58.9 Irritable bowel syndrome, unspecified; K21.9 Gastro-esophageal reflux disease without esophagitis; Z88.2 Allergy status to sulfonamides; Z88.8 Allergy status to other drugs, medicaments and biological substances; Z79.899 Other long term (current) drug therapy; Z86.73 Personal history of transient ischemic attack (TIA), and cerebral infarction without residual deficits
CPT/HCPCS: 80048; 85025; 49593; J2250; J1644; J2710; J0690; J2405; J2003; J3010; J2795; J1885; J2704; J1596; 64999

== ENCOUNTER 2024-10-17 12:38 | Observation (INO) | payer BC ==
--- NOTE | 2024-10-17 12:59 | ED ---
Abdominal Pain HPI - General Source: patient, RN notes reviewed Mode of arrival: ambulatory Limitations: no limitations - History of Present Illness MD Complaint: abdominal pain <Mary Su - Last Filed: 10/17/24 12:58> <Yomaira Owens - Last Filed: 10/18/24 13:09> - General Chief Complaint: Abdominal Pain Stated Complaint: Post-op pain&chest pain Time Seen by Provider: 10/17/24 12:50 - History of Present Illness Initial Comments: Quick Note: This is a 64-year-old female who presents to the emergency department for abdominal pain and chest pain. Patient had hernia surgery with Dr. Schmidt 3 days ago. States that she continues to have severe pain in the abdomen and is now also developing chest pain as well as a productive cough. She is now out of her [place]. States that she called Dr. Schmidt's office and was advised to come here for further evaluation. (Mary Su) 64-year-old female with past medical history of rectal cancer in remission who presents to the emergency department with cough. Patient recently had surgery on Dr. Walton by Dr. Schmidt. She had a inguinal hernia repair and went home with a ANDRES drain. States that shortly afterwards she started coughing. Feels as if she has pneumonia. She denies fevers. Admits to shortness of breath. She has been coughing so hard that it is irritated her abdomen. She was sent home on oxycodone and states that this has not helped her pain. She admitted to chest pain out in triage but denies any to me. No history of cardiac disease. Does not typically use an inhaler at home but has 1 from when she had COVID. No history of DVT or PE. No calf pain or swelling. No other alleviating, precipitating or modifying factors (Yomaira Owens) - Related Data Home Medications Medication Instructions Recorded Confirmed Acetaminophen Tab [Tylenol] 650 mg PO Q6H PRN 10/17/24 10/17/24 Previous Rx's Medication Instructions Recorded Docusate [Colace] 100 mg PO BID #20 capsule 10/14/24 Ibuprofen [Motrin] 600 mg PO Q6HR PRN #40 tab 10/14/24 Allergies Allergy/AdvReac Type Severity Reaction Status Date / Time Sulfa (Sulfonamide Allergy Rash/Hives Verified 10/17/24 20:37 Antibiotics) sumatriptan [From Imitrex] Allergy Chest Pain Verified 10/17/24 20:37 sumatriptan succinate Allergy Chest Pain Verified 10/17/24 20:37 [From Imitrex] Review of Systems ROS Other: All systems not noted in ROS Statement are negative. <Mary Su - Last Filed: 10/17/24 12:58> ROS Other: All systems not noted in ROS Statement are negative. <Yomaira Owens - Last Filed: 10/18/24 13:09> ROS Statement: Those systems with pertinent positive or pertinent negative responses have been documented in the HPI. Past Medical History Past Medical History: Cancer, CVA/TIA, GERD/Reflux, Hyperlipidemia, Hypertension, Osteoarthritis (OA) Additional Past Medical History / Comment(s): HX CROHNS, IBS, BULGING LUMBAR DISCS, rectal prolapse, anal cancer, vaginal prolapse, shingles, TIA 3 years ago-no residual effects; pt states HTN only during COVID infection, no problems or meds now. History of Any Multi-Drug Resistant Organisms: MRSA Date of last positivie culture/infection: 1997 MDRO Source:: Head Past Surgical History: Appendectomy, Bowel Resection, Section, Cholecystectomy, Hernia Repair, Hysterectomy Additional Past Surgical History / Comment(s): anal surg. to remove cancer, cataracts removed with lens implant. Past Anesthesia/Blood Transfusion Reactions: Postoperative Nausea & Vomiting ( PONV) Smoking Status: Current every day smoker - Past Family History Sister(s) Family Medical History: Cancer Additional Family Medical History / Comment(s): breast ca Father Family Medical History: Osteoarthritis (OA) Mother Family Medical History: Hypertension <Mary Su - Last Filed: 10/17/24 12:58> General Exam <Mary Su - Last Filed: 10/17/24 12:58> General appearance: alert, in no apparent distress Head exam: Present: atraumatic, normocephalic, normal inspection Eye exam: Present: normal appearance, PERRL, EOMI. Absent: scleral icterus, conjunctival injection, periorbital swelling ENT exam: Present: normal exam, mucous membranes moist Neck exam: Present: normal inspection. Absent: tenderness, meningismus, lymphadenopathy Respiratory exam: Present: wheezes (Right side worse than left), decreased br eath sounds. Absent: respiratory distress, rales, rhonchi, stridor Cardiovascular Exam: Present: normal rhythm, tachycardia, normal heart sounds. Absent: systolic murmur, diastolic murmur, rubs, gallop, clicks GI/Abdominal exam: Present: soft, normal bowel sounds. Absent: distended, tenderness, guarding, rebound, rigid Extremities exam: Present: normal inspection, full ROM, normal capillary refill. Absent: tenderness, pedal edema, joint swelling, calf tenderness Back exam: Present: normal inspection Neurological exam: Present: alert, oriented X3, CN II-XII intact Psychiatric exam: Present: normal affect, normal mood Skin exam: Present: warm, dry, intact, normal color. Absent: rash <Yomaira Owens - Last Filed: 10/18/24 13:09> - General Exam Comments Initial Comments: Visual Physical Exam Vital signs reviewed General: Well-appearing, nontoxic, no acute distress. Head: Normocephalic, atraumatic Eyes: PERRLA, EOMI ENT: Airway patent Chest: Nonlabored breathing Skin: No visual rash, normal skin tone Neuro: Alert and oriented 3 Musculoskeletal: No gross abnormalities (Mary Su) Course Vital Signs 10/17/24 10/17/24 10/17/24 13:20 20:00 23:29 Temperature 97.4 F L Pulse Rate 110 H 89 74 Respiratory 20 20 15 Rate Blood Pressure 180/133 171/98 155/93 O2 Sat by Pulse 90 L 97 97 Oximetry Medical Decision Making <Mary Su - Last Filed: 10/17/24 12:58> - Lab Data Result diagrams: 10/18/24 08:02 10/18/24 07:58 <Yomaira Owens - Last Filed: 10/18/24 13:09> - Medical Decision Making I performed the QuickNote portion of this chart. Signed Mary Su PA-C. (Mary Su) Was pt. sent in by a medical professional or institution ([facility], HEATING AND VENTILATING WORKER, urgent care, hospital, or snf...) When possible be specific @ -No Did you speak to anyone other than the patient for history (EMS, parent, family, police, friend...)? What history was obtained from this source @ -No Did you review nursing and triage notes (agree or disagree)? Why? @ -I reviewed and agree with nursing and triage notes Were old charts reviewed (outside hosp., previous admission, EMS record, old EKG, old radiological studies, urgent care reports/EKG's, snf records)? Report findings @ -I reviewed the operative note from Sunday where patient had hernia repair by Dr. Schmidt Differential Diagnosis (chest pain, altered mental status, abdominal pain women, abdominal pain men, vaginal bleeding, weakness, fever, dyspnea, syncope, headache, dizziness, GI bleed, back pain, seizure, CVA, palpatations, mental health, musculoskeletal)? @ -Differential Dyspnea: Coronary syndrome, arrhythmia, tamponade, asthma, COPD, pulmonary embolism, pneumonia, pneumothorax, pulmonary effusion, anaphylaxis, diabetic ketoacidosis, flailed chest, pulmonary contusion, diaphragmatic rupture, anemia, neuromuscular, this is not meant to be an all-inclusive list. EKG interpreted by me (3pts min.). @ -Yes and demonstrates sinus tachycardia with a rate of 106. ID interval 142. QRS 83. QTc of 373. No acute ST segment elevation or depression X-rays interpreted by me (1pt min.). @ -Yes and demonstrates right lung airspace disease CT interpreted by me (1pt min.). @ -Yes and demonstrates right lung airspace disease U/S interpreted by me (1pt. min.). @ -None done What testing was considered but not performed or refused? (CT, X-rays, U/S, labs)? Why? @ -None What meds were considered but not given or refused? Why? @ -None Did you discuss the management of the patient with other professionals (professionals i.e. DrJose M, PA, HEATING AND VENTILATING WORKER, lab, RT, psych nurse, nursing home social worker, equestrian trainer, teacher, radio division officer, vocational case manager)? Give summary @ -Spoke with Dr. Holly who agreed to admit the patient Was smoking cessation discussed for >3mins.? @ -No Was critical care preformed (if so, how long)? @ -No Were there social determinants of health that impacted care today? How? (Homelessness, low income, unemployed, alcoholism, drug addiction, transportation, low edu. Level, literacy, decrease access to med. care, [place] [facility], rehab)? @ -No Was there de-escalation of care discussed even if they declined (Discuss DNR or withdrawal of care, Hospice)? DNR status @ -No What co-morbidities impacted this encounter? (DM, HTN, Smoking, COPD, CAD, Cancer, CVA, ARF, Chemo, Hep., AIDS, mental health diagnosis, sleep apnea, morbid obesity)? @ -None Was patient admitted / discharged? Hospital course, mention meds given and route, prescriptions, significant lab abnormalities, going to OR and other pertinent info. @ -Upon arrival patient seen and evaluated in bed 27. Thorough history and physical exam was performed. Patient does have slightly low oxygen levels at 92%. She is tachycardic. IV is established. Laboratory studies are conducted. Patient is requesting pain medication for her abdomen. Chest x-ray does demonstrate possible pneumonia. Patient's clinical symptoms are consistent with this. She was given a breathing treatment and antibiotics. CT of the abdomen pelvis was performed due to postop pain. Demonstrates no acute findings in the patient's abdomen. Patient will be admitted for overnight stay due to SIRS criteria associated with her pneumonia. Patient was agreeable to this. Spoke with Dr. Holly for the admission Undiagnosed new problem with uncertain prognosis? @ -No Drug Therapy requiring intensive monitoring for toxicity (Heparin, Nitro, Insulin, Cardizem)? @ -No Were any procedures done? @ -No Diagnosis/symptom? @ -Acute cough, acute respiratory insufficiency, right lower lobe pneumonia, abdominal pain status post hernia repair Acute, or Chronic, or Acute on Chronic? @ -Acute Uncomplicated (without systemic symptoms) or Complicated (systemic symptoms)? @ -Complicated Side effects of treatment? @ -No Exacerbation, Progression, or Severe Exacerbation? @ -No Poses a threat to life or bodily function? How? (Chest pain, USA, [place], pneumonia, PE, COPD, DKA, ARF, appy, cholecystitis, CVA, Diverticulitis, Homicidal, Suicidal, threat to staff... and all critical care pts) @ -No (Yomaira Owens) - Lab Data Lab Results 10/17/24 10/17/24 10/17/24 Range/Units 12:57 12:57 12:57 WBC 11.4 H (3.8-10.6) k/uL RBC 5.05 (3.80-5.40) m/uL Hgb 15.8 (11.4-16.0) gm/dL Hct 47.5 H (34.0-46.0) % MCV 94.2 (80.0-100.0) fL MCH 31.4 (25.0-35.0) pg MCHC 33.3 (31.0-37.0) g/dL RDW 12.9 (11.5-15.5) % Plt Count 410 (150-450) k/uL MPV 7.2 Neutrophils % 72 % Lymphocytes % 19 % Monocytes % 5 % Eosinophils % 2 % Basophils % 1 % Neutrophils # 8.2 H (1.3-7.7) k/uL Lymphocytes # 2.2 (1.0-4.8) k/uL Monocytes # 0.6 (0-1.0) k/uL Eosinophils # 0.3 (0-0.7) k/uL Basophils # 0.1 (0-0.2) k/uL Sodium 139 (137-145) mmol/L Potassium 3.4 L (3.5-5.1) mmol/L Chloride 100 (98-107) mmol/L Carbon Dioxide 29 (22-30) mmol/L Anion Gap 10 mmol/L BUN 18 H (7-17) mg/dL Creatinine 0.71 (0.52-1.04) mg/dL Est GFR (CKD-EPI)AfAm >90 (>60 ml/min/1.73 sqM) Est GFR (CKD-EPI)NonAf >90 (>60 ml/min/1.73 sqM) Glucose 109 H (74-99) mg/dL Plasma Lactic Acid Alex 1.0 (0.7-2.0) mmol/L Calcium 9.5 (8.4-10.2) mg/dL Total Bilirubin 0.6 (0.2-1.3) mg/dL AST 30 (14-36) U/L ALT 18 (4-34) U/L Alkaline Phosphatase 89 (38-126) U/L Troponin I (0.000-0.034) ng/mL Total Protein 7.5 (6.3-8.2) g/dL Albumin 4.4 (3.5-5.0) g/dL Amylase 66 (30-110) U/L Lipase 74 (23-300) U/L Influenza Type A (PCR) (Not Detectd) Influenza Type B (PCR) (Not Detectd) RSV (PCR) (Not Detectd) SARS-CoV-2 (PCR) (Not Detectd) 10/17/24 10/17/24 Range/Units 12:57 17:23 WBC (3.8-10.6) k/uL RBC (3.80-5.40) m/uL Hgb (11.4-16.0) gm/dL Hct (34.0-46.0) % MCV (80.0-100.0) fL MCH (25.0-35.0) pg MCHC (31.0-37.0) g/dL RDW (11.5-15.5) % Plt Count (150-450) k/uL MPV Neutrophils % % Lymphocytes % % Monocytes % % Eosinophils % % Basophils % % Neutrophils # (1.3-7.7) k/uL Lymphocytes # (1.0-4.8) k/uL Monocytes # (0-1.0) k/uL Eosinophils # (0-0.7) k/uL Basophils # (0-0.2) k/uL Sodium (137-145) mmol/L Potassium (3.5-5.1) mmol/L Chloride (98-107) mmol/L Carbon Dioxide (22-30) mmol/L Anion Gap mmol/L BUN (7-17) mg/dL Creatinine (0.52-1.04) mg/dL Est GFR (CKD-EPI)AfAm (>60 ml/min/1.73 sqM) Est GFR (CKD-EPI)NonAf (>60 ml/min/1.73 sqM) Glucose (74-99) mg/dL Plasma Lactic Acid Alex (0.7-2.0) mmol/L Calcium (8.4-10.2) mg/dL Total Bilirubin (0.2-1.3) mg/dL AST (14-36) U/L ALT (4-34) U/L Alkaline Phosphatase (38-126) U/L Troponin I <0.012 (0.000-0.034) ng/mL Total Protein (6.3-8.2) g/dL Albumin (3.5-5.0) g/dL Amylase (30-110) U/L Lipase (23-300) U/L Influenza Type A (PCR) Not Detected (Not Detectd) Influenza Type B (PCR) Not Detected (Not Detectd) RSV (PCR) Not Detected (Not Detectd) SARS-CoV-2 (PCR) Not Detected (Not Detectd) Disposition <Mary Su - Last Filed: 10/17/24 12:58> Is patient prescribed a controlled substance at d/c from ED?: No Time of Disposition: 20:33 Decision to Admit Reason: Admit from EC Decision Date: 10/17/24 Decision Time: 20:33 <Yomaira Owens - Last Filed: 10/18/24 13:09> Clinical Impression: Pneumonia, Tachycardia, H/O hernia repair, Abdominal pain Disposition: ADMITTED IP TO THIS HOSP Condition: Stable
--- NOTE | 2024-10-17 13:55 | XR ---
EXAMINATION TYPE: XR chest 2V DATE OF EXAM: 10/17/2024 CLINICAL HISTORY: Pain TECHNIQUE: 2 view chest COMPARISON: 07/08/2023 FINDINGS: There is lingular opacity noted which may reflect infiltrate however underlying mass is not excluded. CT of the chest is recommended. Hyperinflation is compatible with COPD. The cardiac silhou ette size is within normal limits. The osseous structures are intact. IMPRESSION: There is lingular opacity noted which may reflect infiltrate however underlying mass is not excluded. CT of the chest is recommended. [facility], , 10/17/2024 1:53 PM
[2024-10-17 17:29] LABS: Basophils # (A) 0.1 k/uL (0-0.2); Basophils % (A) 1 %; Eosinophils # (A) 0.3 k/uL (0-0.7); Eosinophils % (A) 2 %; HCT 47.5 % (34.0-46.0); HGB 15.8 gm/dL (11.4-16.0); Lymphocytes # (A) 2.2 k/uL (1.0-4.8); Lymphocytes % (A) 19 %; MCH 31.4 pg (25.0-35.0); MCHC 33.3 g/dL (31.0-37.0); MCV 94.2 fL (80.0-100.0); Mean Platelet Volume 7.2; Monocytes # (A) 0.6 k/uL (0-1.0); Monocytes % (A) 5 %; Neutrophils # (A) 8.2 k/uL (1.3-7.7); Neutrophils % (A) 72 %; Platelet Count 410 k/uL (150-450); RBC 5.05 m/uL (3.80-5.40); RDW 12.9 % (11.5-15.5); WBC 11.4 k/uL (3.8-10.6)
[2024-10-17 17:39] LABS: ALT 18 U/L (4-34); AST 30 U/L (14-36); African American GFR (CKD) >90 (>60 ml/min/1.73 sqM); Albumin 4.4 g/dL (3.5-5.0); Alkaline Phosphatase 89 U/L (38-126); Amylase 66 U/L (30-110); Anion Gap 10 mmol/L; Blood Urea Nitrogen 18 mg/dL (7-17); Calcium 9.5 mg/dL (8.4-10.2); Carbon Dioxide 29 mmol/L (22-30); Chloride 100 mmol/L (98-107); Glucose 109 mg/dL (74-99); Lipase 74 U/L (23-300); Non-African American GFR(CKD) >90 (>60 ml/min/1.73 sqM); Potassium 3.4 mmol/L (3.5-5.1); Sodium 139 mmol/L (137-145); Total Bilirubin 0.6 mg/dL (0.2-1.3); Total Protein 7.5 g/dL (6.3-8.2)
[2024-10-17] MEDS: ONDANSETRON 4 MG/2 ML VIAL IVP STA (18:02)
[2024-10-17] MEDS: MORPHINE SULFATE 4 MG/ML SYRINGE IVP STA (18:03)
--- NOTE | 2024-10-17 19:00 | CT ---
EXAMINATION TYPE: CT abdomen pelvis w con DATE OF EXAM: 10/17/2024 6:40 PM COMPARISON: Multiple prior CT abdomen/pelvis studies, most recent dated 02/12/2022. CLINICAL INDICATION: Female, 64 years old with history of abd pain; Patient complains of abdominal pa in after hernia repair. patient states pain is severe and she has chest congestion. TECHNIQUE: Axial CT abdomen pelvis w con;Sagittal and coronal reformats were created on a separate w orkstation. Contrast used:80 ml mL of Isovue 300 with IV Contrast, (none if empty) Oral contrast used: without Oral Contrast (none if empty) CT DLP: 629 mGycm, Automated exposure control for dose reduction was used. FINDINGS: LOWER CHEST: Mixed ground glass and consolidative opacity in the midportion of the right lower lobe c ould reflect atelectasis and/or pneumonia. ABDOMEN Liver unremarkable. Gallbladder surgically absent. CBD dilatation, likely postcholecystectomy related . Pancreas unremarkable. No suspicious adrenal gland nodule. Spleen normal in size and morphology. Ki dneys unremarkable. Mixed calcified and sclerotic plaque of the abdominal aorta without aneurysmal dilatation. Cystic art vanessa and SMA appear grossly patent. No significant free fluid or free air in the abdomen or pelvis. Imaging through the bowel demonstrates mild/moderate colonic stool burden. No evidence of small bowel obstruction. No abnormal acute small or large bowel wall thickening. Mild stranding in the right low er quadrant anterior abdominal wall which could reflect sequelae of recent surgery. Postsurgical drai nage tube noted in the lower right anterior abdominal wall. No drainable abscess/fluid collection jurgen reciated. No evidence of significant free air. No acute osseous abnormality. IMPRESSION: 1. No acute abnormality in the abdomen/pelvis. 2. Mixed groundglass/consolidative opacity in the dependent portion of the right lower lobe could re flect atelectasis and/or pneumonia. 3. Post surgical drainage catheter in the right lower anterior abdominal wall. [facility], , 10/17/2024 6:57 PM
[2024-10-17] MEDS ORDERED: PNEUMONIA PROTOCOL UTILIZED 1 EACH MISC PO PRN (20:14)
[2024-10-17] MEDS: HYDROmorphone 1 MG/ML 1 ML SYRINGE IVP STA (20:23)
[2024-10-17] MEDS ORDERED: MORPHINE SULFATE 4 MG/ML SYRINGE IVP PRN (20:33)
[2024-10-17] MEDS: SODIUM CHLORIDE 0.9% 1,000 ML IV SCH (22:11)
--- NOTE | 2024-10-17 22:27 | P.HPIM ---
History of Present Illness H&P Date: 10/17/24 Chief Complaint: Chest pressure, postop abdominal pain, chest pressure, and cough History of present illness; 64-year-old female with PMH of hypertension, hyperlipidemia, history of CVA (not on AC at home), significant tobacco use history, and history of anal cancer (in remission) presents with complaints of chest congestion, postop abdominal pain, and cough. Of note the patient had inguinal hernia repair surgery with Dr. Schmidt 3 days ago and went home with a ANDRES drain. States for the first 2 days after surgery at home her abdominal pain was well-controlled with pain medication. Reports she ran out of pain medications on the third day after her surgery as well as started having a cough productive with yellowgreenish sputum. Notes the combination of running out of oxycodone as well as significant cough contributed to her increased abdominal pain. States earlier today she called her surgeon's office, and was directed to come to the emergency room for further evaluation. In addition to the abdominal pain and cough, patient admits to chest pressure which she states is central. States the chest pressure improved at home when she was able to bring up large amounts of sputum. Denies the chest pressure radiating anywhere. States the chest pressure did not become worse on exertion, but also admits that she has not been moving around significantly since she recently had surgery. She reports the chest discomfort resolved shortly before arriving at the ED and is currently chest pain free. States she felt feverish earlier today with a Tmax of 99, and also experienced some chills. Admits to chest pressure, postop abdominal pain, and productive cough but denies headache, shortness of breath, palpitations, nausea, vomiting, diarrhea, and constipation. At time of interview patient reports her abdominal pain is now under control after receiving IV pain medication in the ED. Labs: -WBC 11.4, hemoglobin 15.8, neutrophils 8.2, potassium 3.4, glucose 109, troponin less than 0.012, and lipase 74 -Influenza type A and B, RSV, and COVID all negative. Imaging: - ER CXR: Linear opacity noted which may reflect infiltrate however underlying mass is not excluded. - ER CT ABD: No acute abnormality in the abdomen/pelvis, mixed groundglass/consolidative opacity in the dependent portion of the right lower lobe could reflect atelectasis and/or pneumonia. Postsurgical drainage catheter in the right lower anterior abdominal wall. REVIEW OF SYSTEMS: As stated above in HPI. The rest of the 14-point review of systems is negative. PHYSICAL EXAMINATION: GENERAL: The patient is alert and oriented x3, not in any acute distress. Well developed, well nourished. HEENT: Pupils are round and equally reacting to light. EOMI. No scleral icterus. No conjunctival pallor. Normocephalic, atraumatic. CARDIOVASCULAR: S1 and S2 present. No murmurs, rubs, or gallops. PULMONARY: Coarse crackles and minimal rhonchi auscultated bilaterally, R > L ABDOMEN: Soft, nontender, nondistended, normoactive bowel sounds. No palpable organomegaly. ANDRES drain appreciated with red serosanguineous fluid within the bulb. ANDRES drain insertion into the abdomen heavily bandaged, and around the bandage could not appreciate any excessive erythema nor discharge. Also did not appreciate any erythema or discharge at the surgical incision site in the right lower quadrant. MUSCULOSKELETAL: No joint swelling or deformity. EXTREMITIES: No cyanosis, clubbing, or pedal edema. NEUROLOGICAL: Gross neurological examination did not reveal any focal deficits. SKIN: No rashes. Assessment and Plan 64-year-old female with PMH of hypertension, hyperlipidemia, history of CVA (not on AC at home), and history of anal cancer (in remission) presents with complaints of chest pressure, postop abdominal pain, and cough. # Acute hypoxic respiratory failure: suspected CAP pneumonia #Sepsis -HR 110, RR 20 -WBC 11.4, neutrophils 8.2 -CXR shows linear opacity -Zithromax 500 mg IVPB once and Rocephin 2 g IVPB once given in the ED -Continue Zithromax 500 mg p.o. at bedtime and Rocephin 2 g IVPB every 24 hours for CAP coverage -Blood culture, sputum culture, Legionella antigen urine, and Legionella culture -O2 NC as needed #Postsurgical abdominal pain: -Likely exacerbated due to excessive coughing, as patient admits to -CT abdomen shows no abdominal process, as well as ANDRES drain in place -Continue [place] 5 q6h prn as needed for pain -Continue to monitor Chronic Conditions: #Hypertension: -Not on any home meds -BP initially elevated in the 180s on admission, has been decreasing since, likely due to pain #Hyperlipidemia: -Not on any home meds #History of CVA: -No residual neurological deficits -Not on any anticoagulation at home #Hypokalemia -Replace and monitor for resolution #History of anal cancer: -In remission F: NS 130 cc/h E: None N: Heart healthy diet DVT ppx: Lovenox SQ 40 daily GI ppx: Protonix 40 mg p.o. daily CODE STATUS: Full code Dispo: Pending clinical course Clemente Harrison MD PGY-1 FM Dictation was produced using [employer] dictation software. please excuse any grammatical, word or spelling errors. Past Medical History Past Medical History: Cancer, CVA/TIA, GERD/Reflux, Hyperlipidemia, Hypertens ion, Osteoarthritis (OA) Additional Past Medical History / Comment(s): HX CROHNS, IBS, BULGING LUMBAR DISCS, rectal prolapse, anal cancer, vaginal prolapse, shingles, TIA 3 years ago-no residual effects; pt states HTN only during COVID infection, no problems or meds now. History of Any Multi-Drug Resistant Organisms: MRSA Date of last positivie culture/infection: 1997 MDRO Source:: Head Past Surgical History: Appendectomy, Bowel Resection, Section, Cholecystectomy, Hernia Repair, Hysterectomy Additional Past Surgical History / Comment(s): anal surg. to remove cancer, cataracts removed with lens implant. Past Anesthesia/Blood Transfusion Reactions: Postoperative Nausea & Vomiting (PONV) Past Psychological History: Anxiety, Bipolar, Depression Smoking Status: Current every day smoker - Past Family History Sister(s) Family Medical History: Cancer Additional Family Medical History / Comment(s): breast ca Father Family Medical History: Osteoarthritis (OA) Mother Family Medical History: Hypertension Medications and Allergies Home Medications Medication Instructions Recorded Confirmed Type Docusate [Colace] 100 mg PO BID #20 capsule 10/14/24 10/17/24 Rx Ibuprofen [Motrin] 600 mg PO Q6HR PRN #40 tab 10/14/24 10/17/24 Rx Acetaminophen Tab [Tylenol] 650 mg PO Q6H PRN 10/17/24 10/17/24 History Allergies Allergy/AdvReac Type Severity Reaction Status Date / Time Sulfa (Sulfonamide Allergy Rash/Hives Verified 10/17/24 20:37 Antibiotics) sumatriptan [From Imitrex] Allergy Chest Pain Verified 10/17/24 20:37 sumatriptan succinate Allergy Chest Pain Verified 10/17/24 20:37 [From Imitrex] Physical Exam Vitals: Vital Signs Temp Pulse Resp BP Pulse Ox 10/17/24 20:00 89 20 171/98 97 10/17/24 13:20 97.4 F L 110 H 20 180/133 90 L Intake and Output 10/17/24 10/17/24 10/17/24 06:59 14:59 22:59 Other: Weight 52.163 kg Results CBC & Chem 7: 10/17/24 12:57 10/17/24 12:57 Labs: Abnormal Lab Results - Last 24 Hours (Table) 10/17/24 10/17/24 Range/Units 12:57 12:57 WBC 11.4 H (3.8-10.6) k/uL Hct 47.5 H (34.0-46.0) % Neutrophils # 8.2 H (1.3-7.7) k/uL Potassium 3.4 L (3.5-5.1) mmol/L BUN 18 H (7-17) mg/dL Glucose 109 H (74-99) mg/dL
[2024-10-17] MEDS: IPRATROPIUM-ALBUTEROL 3 ML NEB INHALATION STA (23:17)
[2024-10-17] MEDS: AZITHROMYCIN 500 MG in SODIUM CHLORIDE 0.9% 250 ML IVPB STA (23:24)
[2024-10-17] MEDS: HYDROcodone/APAP 5-325MG 1 EACH TAB PO PRN (23:34)
[2024-10-17] MEDS: POTASSIUM CHLORIDE ER 20 MEQ TAB.ER PO STA (23:35)
[2024-10-18] MEDS: ONDANSETRON 4 MG/2 ML VIAL IVP STA (03:22)
[2024-10-18] MEDS: MORPHINE SULFATE 2 MG/ML SYRINGE IVP STA (03:22)
[2024-10-18] MEDS: PANTOPRAZOLE 40 MG TABLET PO SCH (07:03)
--- NOTE | 2024-10-18 07:47 | XR ---
EXAMINATION TYPE: XR chest 1V portable DATE OF EXAM: 10/18/2024 COMPARISON: 10/17/2024 HISTORY: Pneumonia TECHNIQUE: Single frontal view of the chest is obtained. FINDINGS: There is a small focal infiltrate in the right lung base medially consistent with pneumoni a. The left lung is clear. There is no pleural effusion or pneumothorax. The heart and pulmonary vascula ture are normal. The osseous structures are intact IMPRESSION: Acute cardiopulmonary process in the right lung base most likely pneumonia. Short-term f ollow-up to resolution is recommended. [facility], , 10/18/2024 7:45 AM
[2024-10-18 08:20] LABS: Basophils % (A) 1 %; Eosinophils # (A) 0.4 k/uL (0-0.7); Eosinophils % (A) 5 %; HGB 12.9 gm/dL (11.4-16.0); Lymphocytes # (A) 2.3 k/uL (1.0-4.8); Lymphocytes % (A) 30 %; MCH 31.5 pg (25.0-35.0); MCHC 33.2 g/dL (31.0-37.0); MCV 94.8 fL (80.0-100.0); Mean Platelet Volume 7.4; Monocytes # (A) 0.6 k/uL (0-1.0); Monocytes % (A) 8 %; Neutrophils # (A) 4.2 k/uL (1.3-7.7); Neutrophils % (A) 55 %; Platelet Count 365 k/uL (150-450); RBC 4.11 m/uL (3.80-5.40); RDW 12.9 % (11.5-15.5); WBC 7.6 k/uL (3.8-10.6)
[2024-10-18 08:45] LABS: African American GFR (CKD) >90 (>60 ml/min/1.73 sqM); Anion Gap 4 mmol/L; Blood Urea Nitrogen 10 mg/dL (7-17); Calcium 8.2 mg/dL (8.4-10.2); Carbon Dioxide 27 mmol/L (22-30); Chloride 107 mmol/L (98-107); Glucose 105 mg/dL (74-99); Non-African American GFR(CKD) >90 (>60 ml/min/1.73 sqM); Potassium 3.3 mmol/L (3.5-5.1); Sodium 138 mmol/L (137-145)
[2024-10-18] MEDS: ENOXAPARIN 40 MG/0.4 ML SYRINGE SQ SCH (08:57)
[2024-10-18] MEDS: DOCUSATE 100 MG CAP PO SCH (08:57)
[2024-10-18] MEDS: IBUPROFEN 600 MG TAB PO PRN (11:17)
[2024-10-18] MEDS: POTASSIUM CHLORIDE ER 20 MEQ TAB.ER PO STA (11:18)
--- NOTE | 2024-10-18 14:44 | P.PN ---
Subjective Progress Note Date: 10/18/24 64-year-old female with PMH of hypertension, hyperlipidemia, history of CVA (not on AC at home), significant tobacco use history, and history of anal cancer (in remission) presents with complaints of chest congestion, postop abdominal pain, and cough. Of note the patient had inguinal hernia repair surgery with Dr. Schmidt 3 days ago and went home with a ANDRES drain. States for the first 2 days after surgery at home her abdominal pain was well-controlled with pain medication. Reports she ran out of pain medications on the third day after her surgery as well as started having a cough productive with yellowgreenish sputum. Notes the combination of running out of oxycodone as well as significant cough contributed to her increased abdominal pain. States earlier today she called her surgeon's office, and was directed to come to the emergency room for further evaluation. In addition to the abdominal pain and cough, patient admits to chest pressure which she states is central. States the chest pressure improved at home when she was able to bring up large amounts of sputum. Denies the chest pressure radiating anywhere. States the chest pressure did not become worse on exertion, but also admits that she has not been moving around significantly since she recently had surgery. She reports the chest discomfort resolved shortly before arriving at the ED and is currently chest pain free. States she felt feverish earlier today with a Tmax of 99, and also experienced some chills. Admits to chest pressure, postop abdominal pain, and productive cough but denies headache, shortness of breath, palpitations, nausea, vomiting, diarrhea, and constipation. At time of interview patient reports her abdominal pain is now under control after receiving IV pain medication in the ED. Labs: -WBC 11.4, hemoglobin 15.8, neutrophils 8.2, potassium 3.4, glucose 109, troponin less than 0.012, and lipase 74 -Influenza type A and B, RSV, and COVID all negative. Imaging: - ER CXR: Linear opacity noted which may reflect infiltrate however underlying mass is not excluded. - ER CT ABD: No acute abnormality in the abdomen/pelvis, mixed groundglass/consolidative opacity in the dependent portion of the right lower lobe could reflect atelectasis and/or pneumonia. Postsurgical drainage catheter in the right lower anterior abdominal wall. 10/18/2024 patient seen and examined at bedside. Patient noted that she feels her chest has a lot of sputum but is breathing fine. She reported that her abd ominal pain still persists but is better controlled with pain medication. WBC 7.6 hemoglobin 12.9 platelet count 365,000 sodium 138 potassium 3.3 chloride 107 bicarb 27 BUN 10 creatinine 0.53 glucose 105 calcium 8 point Review of systems: Pertinent positives and negatives as discussed in HPI, a complete review of systems was performed and all other systems are negative. Pertinent imaging and labs reviewed. Physical examination: Vital signs reviewed General: non toxic, no distress, appears at stated age Derm: no unusual rashes/lesions, warm Head: atraumatic, normocephalic, symmetric Eyes: EOMI, anicteric sclera, pupils equal round reactive to light ENT: Nose and ears atraumatic Neck: No cervical lymphadenopathy, trachea midline, supple Mouth: no lip lesion, mucus membranes moist Cardiovascular: S1S2 reg, no murmur Lungs: Bibasilar rhonchi, no rales, no accessory muscle use Abdominal: soft, nontender to palpation, no guarding, ANDRES drain at right upper quadrant, incision site at right lower quadrant surrounding skin is nonerythematous and dry with no swelling Ext: muscle strength 5 out of 5 in all 4 extremities grossly, no gross muscle atrophy, no contractures, positive dorsalis pedis pulse bilateral, no extremity edema Neuro: CN II-XI grossly intact, no gross focal neuro deficits Psych: Alert and oriented x3, appropriate affect and mood Assessment/Plan: 64-year-old female with PMH of hypertension, hyperlipidemia, history of CVA (not on AC at home), and history of anal cancer (in remission) presents with complaints of chest pressure, postop abdominal pain, and cough. #. Acute hypoxic respiratory failure secondary to Community-acquired pneumonia #. Sepsis resolved -HR 110, RR 20 -WBC 11.4, neutrophils 8.2 -CXR shows linear opacity -Zithromax 500 mg IVPB once and Rocephin 2 g IVPB once given in the ED -Continue Zithromax 500 mg p.o. at bedtime and Rocephin 2 g IVPB every 24 hours -Blood culture pending -Sputum culture pending -Legionella antigen urine, and Legionella culture pending -O2 NC as needed #. Postsurgical abdominal pain -Likely exacerbated due to excessive coughing, as patient admits to -CT abdomen shows no abdominal process, as well as ANDRES drain in place -Continue [place] 5 and oxycodone 5 mg p.o. every 6 hours as needed for pain -Continue to monitor #. Hypokalemia Potassium 3.3 Check potassium and mag level after repletion 40 mEq of potassium p.o. F: 0.9% normal saline at 130 cc/h E: Potassium 40 mEq N: Heart healthy diet A: Can self ambulate DVT prophylaxis: Lovenox 40 mg SQ daily GI prophylaxis: Protonix 40 mg p.o. daily Debi Camara MD PGY-1/Hair Specialist Dictation was produced using [employer] dictation software. please excuse any grammatical, word or spelling errors. I have seen and evaluated the patient today. Discussed with the resident and agree with the residents finding and plan as documented in the resident's note. Changes highlighted in blue font. Objective - Vital Signs Vital signs: Vital Signs Temp 98.1 F 10/18/24 13:24 Pulse 58 L 10/18/24 13:24 Resp 16 10/18/24 13:24 BP 150/87 10/18/24 13:24 Pulse Ox 98 10/18/24 13:24 FiO2 Intake & Output 10/17/24 10/18/24 10/18/24 18:59 06:59 18:59 Intake Total 50 Output Total 35 Balance 15 Weight 52.163 kg 52.163 kg Intake: Intake, IV Titration 50 Amount cefTRIAXone 2 gm In 50 Sodium Chloride 0.9% 50 ml @ 100 mls/hr IVPB Q24HR [facility] Rx#:[id number] Output: Drainage 35 Abdomen 35 Other: # Voids 1 - Labs CBC & Chem 7: 10/18/24 08:02 10/18/24 07:58 Labs: Abnormal Lab Results - Last 24 Hours (Table) 10/17/24 10/17/24 10/18/24 Range/Units 12:57 12:57 07:58 WBC 11.4 H (3.8-10.6) k/uL Hct 47.5 H (34.0-46.0) % Neutrophils # 8.2 H (1.3-7.7) k/uL Potassium 3.4 L 3.3 L (3.5-5.1) mmol/L BUN 18 H (7-17) mg/dL Glucose 109 H 105 H (74-99) mg/dL Calcium 8.2 L (8.4-10.2) mg/dL Microbiology - Last 24 Hours (Table) 10/17/24 23:37 Gram Stain - Preliminary Sputum
[2024-10-18 16:45] LABS: Magnesium 1.7 mg/dL (1.6-2.3)
[2024-10-18] MEDS: AZITHROMYCIN 500 MG TAB PO SCH (21:01)
[2024-10-19] MEDS: IPRATROPIUM-ALBUTEROL 3 ML NEB INHALATION PRN (08:21)
[2024-10-19 08:47] VITALS: BP 142/77; RESP 16; TEMP 97.1
[2024-10-19] MEDS: ONDANSETRON 4 MG/2 ML VIAL IVP PRN (09:06)
[2024-10-19 12:02] VITALS: PULSE 70
--- NOTE | 2024-10-19 13:24 | P.DS ---
Providers Date of admission: 10/17/24 20:16 Expected date of discharge: 10/19/24 Attending physician: Paty Holly MD Primary care physician: Stated None Hospital Course: Discharge Diagnosis: #. Acute hypoxic respiratory failure secondary to Community-acquired pneumonia #. Sepsis #. Postsurgical abdominal pain #. Hypokalemia Hospital Course: PMH of hypertension, hyperlipidemia, history of CVA (not on AC at home), signif icant tobacco use history, and history of anal cancer (in remission) presents with complaints of chest congestion, postop abdominal pain, and cough. -WBC 11.4, hemoglobin 15.8, neutrophils 8.2, potassium 3.4, glucose 109, troponin less than 0.012, and lipase 74 -Influenza type A and B, RSV, and COVID all negative. - ER CXR: Linear opacity noted which may reflect infiltrate however underlying mass is not excluded. - ER CT ABD: No acute abnormality in the abdomen/pelvis, mixed groundglass/consolidative opacity in the dependent portion of the right lower lobe could reflect atelectasis and/or pneumonia. Postsurgical drainage catheter in the right lower anterior abdominal wall. Patient started on IV antibiotics. Remains on room air. Patient being discharged home with oral antibiotics. Repeat labs within normal limits. Patient seen and examined at bedside. Vital signs reviewed and stable. General: non toxic, no distress, appears at stated age Derm: no unusual rashes/lesions, warm Head: atraumatic, normocephalic, symmetric Eyes: EOMI, anicteric sclera, pupils equal round reactive to light ENT: Nose and ears atraumatic Neck: No cervical lymphadenopathy, trachea midline, supple Mouth: no lip lesion, mucus membranes moist Cardiovascular: S1S2 reg, no murmur Lungs: Bibasilar rhonchi, no rales, no accessory muscle use Abdominal: soft, nontender to palpation, no guarding, ANDRES drain at right upper quadrant, incision site at right lower quadrant surrounding skin is nonerythematous and dry with no swelling Ext: muscle strength 5 out of 5 in all 4 extremities grossly, no gross muscle atrophy, no contractures, positive dorsalis pedis pulse bilateral, no extremity edema Neuro: CN II-XI grossly intact, no gross focal neuro deficits Psych: Alert and oriented x3, appropriate affect and mood A total of 36 minutes of time were spent preparing this complex discharge summary. Patient was discharged on 10/19/2024 at 1036. Patient Condition at Discharge: Stable Plan - Discharge Summary Discharge Rx Participant: Yes New Discharge Prescriptions: New HYDROcodone/APAP 5-325MG [[place] 5-325] 1 tab PO Q6HR PRN 3 Days #12 tab PRN Reason: Breakthrough Pain Azithromycin [Zithromax] 500 mg PO DAILY 1 Days #1 tab Cefdinir 300 mg PO Q12HR #4 cap Continue Docusate [Colace] 100 mg PO BID #20 capsule Ibuprofen [Motrin] 600 mg PO Q6HR PRN #40 tab PRN Reason: Pain Acetaminophen Tab [Tylenol] 650 mg PO Q6H PRN PRN Reason: Pain Or Fever > 100.5 Discharge Medication List Docusate [Colace] 100 mg PO BID #20 capsule 10/14/24 [Rx] Ibuprofen [Motrin] 600 mg PO Q6HR PRN #40 tab 10/14/24 [Rx] Acetaminophen Tab [Tylenol] 650 mg PO Q6H PRN 10/17/24 [History] Azithromycin [Zithromax] 500 mg PO DAILY 1 Days #1 tab 10/19/24 [Rx] Cefdinir 300 mg PO Q12HR #4 cap 10/19/24 [Rx] HYDROcodone/APAP 5-325MG [[place] 5-325] 1 tab PO Q6HR PRN 3 Days #12 tab 10/19/24 [Rx] Follow up Appointment(s)/Referral(s): None,Stated [Primary Care Provider] - 1-2 days Patient Instructions/Handouts: Community Acquired Pneumonia (DC) Activity/Diet/Wound Care/Special Instructions: Please see your PCP. Discharge Disposition: HOME SELF-CARE
== END 2024-10-19 12:27 | disposition home or self-care (01) ==
LOC: EC 12:38 → 6NMEDSUR 20:16 → 4SSUR 22:25
PROVIDERS: ADMIT Internal Medicine; ATTEND Internal Medicine
DX: J18.9 Pneumonia, unspecified organism (principal); J96.01 Acute respiratory failure with hypoxia; A41.9 Sepsis, unspecified organism; R10.9 Unspecified abdominal pain; G89.18 Other acute postprocedural pain; E87.6 Hypokalemia; F31.9 Bipolar disorder, unspecified; F41.9 Anxiety disorder, unspecified; E78.5 Hyperlipidemia, unspecified; K21.9 Gastro-esophageal reflux disease without esophagitis; I10 Essential (primary) hypertension; F17.200 Nicotine dependence, unspecified, uncomplicated; Z11.52 Encounter for screening for COVID-19; Z85.048 Personal history of other malignant neoplasm of rectum, rectosigmoid junction, and anus; Z86.16 Personal history of COVID-19; Z86.73 Personal history of transient ischemic attack (TIA), and cerebral infarction without residual deficits; Z88.2 Allergy status to sulfonamides
CPT/HCPCS: 96376 ×2; 96366 ×3; 96372 ×2; 96365; 96367; 96375; 99285; 36415; 94640 ×2; 93005; 80053; 80048; 82150; 83605; 83690; 83735; 84132; 84484; 85025 ×2; 87040; 87070; 87205; 87636; 71045; 71046; 74177; G0378 ×4; J2270 ×2; J2405 ×3; J0456; J0696 ×3; J1650 ×2; J1171; Q9967